=== PATIENT | male | born 1990 | race Caucasian/White ===

== ENCOUNTER 2023-07-29 13:53 | Emergency (ER) | payer OTHER, SELFPAY ==
[2023-07-29 13:54] VITALS: BP 134/88; PULSE 71; RESP 16; TEMP 36.2; O2SAT 97; BMI 25.8
--- NOTE | 2023-07-29 14:13 | CT_ITS ---
HISTORY: neck injury. TECHNIQUE: Helically acquired images were obtained of the cervical spine without contrast. 2D reformatted images were reviewed. A radiation dose optimization technique was used for this scan. 454 images. COMPARISON: None. FINDINGS: VERTEBRAE: Vertebral body heights maintained. Posterior elements intact. ALIGNMENT: No significant anterior or posterior subluxation. Straightening of the cervical lordosis. INTERVERTEBRAL DISCS: Mild posterior disc bulge osteophyte complexes of C5-6 and C6-7. SOFT TISSUES: No prevertebral soft tissue swelling. CT/Spine Cervical without Contras IMPRESSION: No evidence for acute fracture or dislocation in the cervical spine. Mild degenerative disc disease. Electronically Signed: Julieth Arndt MD at 15:04 EST ,
--- NOTE | 2023-07-29 14:13 | CT_ITS ---
HISTORY: head trauma. TECHNIQUE: Multiple axial images were obtained of the head without intravenous contrast. A radiation dose optimization technique was used for this scan. 262 images. COMPARISON: None. FINDINGS: BRAIN PARENCHYMA: 1.2 x 2.4 x 1.2 cm acute hemorrhage in the left frontal lobe with mild surrounding edema. Possible trace overlying subarachnoid hemorrhage. CSF SPACES: Cerebral ventricles, cortical sulci, and other extra-axial CSF spaces within normal limits in size for age. No midline shift or other significant mass effect. OTHER: Intact calvarium. Fluid and mucosal thickening in the paranasal sinuses. Unremarkable orbits. CT/Brain/Head without Contrast IMPRESSION: 2.4 cm acute hemorrhage in the left frontal lobe. No midline shift. Electronically Signed: Julieth Arndt MD at 14:42 EST ,
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
[2023-07-29] MEDS: Ondansetron 8 MG Tablet PO (14:17)
[2023-07-29] MEDS: Morphine 4 MG/ML Syringe IV (14:47)
[2023-07-29 14:55] LABS: Hematocrit 43.4 % (40-54); Hemoglobin 14.2 g/dL (13.0-16.5); Mean Corp Hgb Conc 32.7 g/dL (32-36); Mean Corpuscular Hgb 27.8 pg (27.0-32.0); Mean Corpuscular Volume 85.1 fL (80-94); Mean Platelet Vol. 9.5 fl (6.2-12.0); Platelet Count 171 K/mm3 (150-450); RBC Distribution Width CV 13.5 % (11.6-14.6); RBC Distribution Width SD 42.3 fl (35.1-43.9); White Blood Count 6.6 K/mm3 (4.4-11.0)
--- OUTSIDE RECORDS SUMMARY | 2023-07-29 14:56 | XMS RPT_ITS | CCD ---
Author Name Unknown Address [address] [place] [address] Organization [facility] Care Team Providers Care [employer] Worker Name Role Phone Darcy Qureshi Unavailable Darcy Qureshi Primary Care Provider Darcy Qureshi Unavailable Balwinder Espino Primary Care Provider Balwinder Espino Unavailable [phone] Balwinder Espino MD Unavailable Stef Ricci DO Primary Care Provider Stef Ricci DO Primary Care Provider [phone] Physician, No Pcp Primary Care Provider Unavaila arnie PHYSICIAN, NO PCP Primary Care Unavailable ANITA MUÑIZ Attending Unavailable Stef Ricci DO Primary Care Provider [phone] Stef Ricci DO Primary Care Provider STEF RICCI Primary Care Unavailable AMBER THEODORE Attending Unavaila ble SHANNON GABRIEL Attending STEF Rosenthal Primary Care Unavailable SHANNON GABRIEL Attending STEF Rosenthal Primary Care Unavailable SHANNON GABRIEL Attending STEF Rosenthal Primary Care Unavailable SHANNON GABRIEL Referring STEF Rosenthal Primary Care Unavailable AARON SAWYER Attending Unavailable STEF RICCI Primary Care Unavailable RICARDO BEY Attending Natali kerryble STEF RICCI Primary Care Unavailable NANY TRIMBLE Attending UnavailSTEF Cardenas Primary Care Unavailable EDGARDO NDIAYE Attending Unavailable NANY TRIMBLE Attending UnavailSTEF Cardenas Primary Care Unavailable STEF RICCI Attending Unavailable STEF RICCI Primary Care Unavailable STEF RICCI Attending Unavailable STEF RICCI Primary Care Unavailable STEF RICCI Attending Unavailable STEF RICCI Referring Unavailable STEF RICCI Primary Care Unavailable STEF RICCI Referring Unavailable STEF RICCI Admitting Unavailable STEF RICCI Primary Care Unavailable STEF RICCI Primary Care Unavailable STEF RICCI Primary Care Unavailable STEF RICCI Referring Unavailable STEF RICCI Primary Care Unavailable STEF RICCI Attending Unavailable Medications Current Medications Medication Drug Class(es) Dates Sig (Normalized) Sig (Original) [id number] 200 actuat albuterol 0.09 mg/actuat metered dose inhaler (19 sources) beta2-Adrenergic Agonist Start: 05-19-2023 End: 05-19-2024 take 2 puff(s) by inhalation every four to six hours as needed for cough albuterol 90 mcg/actuation inhaler Indications: Wheezing Inhale 2 (two) puffs every 4 to 6 hours as needed for wheezing, shortness of breath or cough . 18 g 0 05/20/2023 05/19/2024 Active Completed/Discontinued Medications Medication Drug Class(es) Dates Sig (Normalized) Sig (Original) benzonatate 200 mg oral capsule (6 sources) Non-narcotic Antitussive Start: 04-18-2023 End: 05-19-2023 take 1 capsule by mouth three times daily as needed for cough benzonatate (TESSALON) 200 MG capsule Indications: Pansinusitis, unspecified chronicity Take 1 (one) capsule (200 mg total) by mouth 3 (three) times a day as needed for cough . 90 capsule 0 04/18/2023 05/19/2023 Discontinued Problems Active Problems Problem Classification Problem Date Documented Date Episodic/Chronic Cardiac dysrhythmias (2 sources) Tachycardia; Translations: [Tachycardia, unspecified] Episodic Chronic obstructive pulmonary disease and bronchiectasis (3 sources) Bronchitis; Translations: [Bronchitis, not specified as acute or chronic] Onset: 06-03-2023 06-02-2023 Episodic Immunizations and screening for infectious disease (7 sources) Exposure to sexually transmissible disorder; Translations: [Contact with and (suspected) exposure to infections with a predominantly sexual mode of transmission] Onset: 02-25-2022 Episodic Malaise and fatigue (2 sources) Fatigue; Translations: [Other fatigue] Onset: 02-25-2022 Episodic Other and unspecified benign neoplasm (2 sources) Multiple atypical melanocytic nevi; Translations: [Melanocytic nevi, unspecified] 08-29-2022 Episodic Other injuries and conditions due to external causes (2 sources) Injury of finger; Translations: [Unspecified injury of left wrist, hand and finger(s), initial encounter] Episodic Other lower respiratory disease (3 sources) Cough; Translations: [Acute cough] 01-22-2023 Episodic Other lower respiratory disease (1 source) Dyspnea; Translations: [Shortness of breath] Episodic Other lower respiratory disease (1 source) H/O: pneumonia; Translations: [History of recent pneumonia] Episodic Other lower respiratory disease (2 sources) Lower respiratory tract infection; Translations: [Unspecified acute lower respiratory infection] 05-19-2023 Episodic Other lower respiratory disease (2 sources) Unspecified acute lower respiratory infection; Translations: [Unspecified acute lower respiratory infection] Onset: 05-19-2023 Episodic Other lower respiratory disease (2 sources) Dyspnea on exertion; Translations: [Other forms of dyspnea] Onset: 06-29-2023 06-29-2023 Episodic Other lower respiratory disease (4 sources) Other forms of dyspnea; Translations: [Other forms of dyspnea] Onset: 06-29-2023 Episodic Other male genital disorders (1 source) Impotence of organic origin; Translations: [Erectile dysfunction, unspecified erectile dysfunction type] Chronic Other male genital disorders (1 source) Impotence; Translations: [Erectile dysfunction, unspecified erectile dysfunction type] Chronic Other skin disorders (1 source) Inflammatory dermatosis; Translations: [Dermatitis] Episodic Other upper respiratory infections (4 sources) Pansinusitis; Translations: [Chronic pansinusitis] Onset: 04-18-2023 04-18-2023 Chronic Otitis media and related conditions (2 sources) Otitis media; Translations: [Otitis media, unspecified, unspecified ear] Onset: 06-29-2023 06-29-2023 Episodic Pneumonia (except that caused by tuberculosis or sexually transmitted disease) (3 sources) Infective pneumonia; Translations: [Pneumonia of right upper lobe due to infectious organism (HCC)] Episodic Residual codes; unclassified (1 source) Sleep disorder; Translations: [Sleep disorder] Episodic Residual codes; unclassified (1 source) Requires diphtheria, tetanus and pertussis vaccination; Translations: [Need for Tdap vaccination] Episodic Skin and subcutaneous tissue infections (6 sources) Impetigo; Translations: [Paronychia of finger of right hand] Onset: 03-30-2023 03-30-2023 Episodic Spondylosis; intervertebral disc disorders; other back problems (2 sources) Acute low back pain; Translations: [Acute right-sided low back pain without sciatica] Episodic Superficial injury; contusion (3 sources) Abrasion and/or friction burn of nose with infection; Translations: [Abrasion of nose, initial encounter] Onset: 03-30-2023 03-30-2023 Episodic Unclassified (2 sources) Patient encounter status; Translations: [Routine general medical examination at a health care facility] Unclassified (1 source) Acute cough; Translations: [Acute cough] Onset: 01-22-2023 Unclassified (1 source) Contact with and (suspected) exposure to covid-19; Translations: [Contact with and (suspected) exposure to covid-19] Onset: 10-03-2022 Unclassified (1 source) Low back pain, unspecified; Translations: [Low back pain, unspecified] Onset: 06-02-2022 Past or Other Problems Problem Classification Problem Date Documented Da te Episodic/Chronic Contraceptive and procreative management (4 sources) Patient encounter status; Translations: [Encounter for other general counseling and advice on contraception] Onset: 08-29-2022 08-29-2022 Episodic Genitourinary symptoms and ill-defined conditions (2 sources) Frequency of micturition; Translations: [Frequency of micturition] Onset: 10-28-2022 Episodic Other and unspecified benign neoplasm (2 sources) Melanocytic nevi, unspecified; Translations: [Melanocytic nevi, unspecified] Onset: 08-29-2022 Episodic Other connective tissue disease (20 sources) Pain in left foot; Translations: [Pain in left foot] Onset: 01-08-2021 Episodic Other injuries and conditions due to external causes (2 sources) Unspecified injury of left wrist, hand and finger(s), initial encounter; Translations: [Unspecified injury of left wrist, hand and finger(s), initial encounter] Onset: 06-02-2022 Episodic Other lower respiratory disease (4 sources) Wheezing; Translations: [Wheezing] Onset: 01-22-2023 01-22-2023 Episodic Other lower respiratory disease (1 source) Wheezing; Translations: [Wheezing] Onset: 01-22-2023 Episodic Other upper respiratory disease (20 sources) Deviated nasal septum; Translations: [Deviated nasal septum] Onset: 01-31-2013 09-19-2014 Episodic Other upper respiratory infections (20 sources) Sore throat symptom; Translations: [Acute pharyngitis, unspecified] Onset: 08-24-2021 Episodic Residual codes; unclassified (1 source) High risk heterosexual behavior; Translations: [High risk sexual behavior, unspecified type] Episodic Residual codes; unclassified (6 sources) Contact with and (suspected) exposure to lead; Translations: [Personal history of contact with and (suspected) exposure to lead] Onset: 08-29-2022 08-29-2022 Episodic Unclassified (1 source) Acute cough; Translations: [Acute cough] Onset: 01-22-2023 Unclassified (1 source) Contact with and (suspected) exposure to covid-19; Translations: [Contact with and (suspected) exposure to covid-19] Onset: 10-03-2022 Unclassified (1 source) Low back pain, unspecified; Translations: [Low back pain, unspecified] Onset: 06-02-2022 Viral infection (6 sources) Viral disease; Translations: [Viral infection, unspecified] Onset: 10-03-2022 10-03-2022 Episodic Results Test Name Value Interpretation Reference Range Facil ity Vital Signs Date Time Vital Sign Value Performing Clinician Maryann colindres 06-29-2023 14:11-0500 Body mass index (BMI) [Ratio] 26.14 kg/m2 Stef Ricci DO Work Phone: [facility] 06-29-2023 14:11-0500 Body weight 80.29 kg Stef Ricci DO Work Phone: [facility] 06-29-2023 14:11-0500 Diastolic blood pressure 82 mm[Hg] Stef Ricci DO Work Phone: [facility] 06-29-2023 14:11-0500 Heart rate 65 /min Stef Ricci DO Work Phone: [facility] 06-29-2023 14:11-0500 SaO2% (BldA) [Mass fraction] 98 % Stef Ricci DO Work Phone: [facility] 06-29-2023 14:11-0500 Systolic blood pressure 118 mm[Hg] Stef Ricci DO Work Phone: [facility] 05-19-2023 17:59-0500 Body height 175.3 cm Aaron Noth PA-C Work Phone: [facility] 05-19-2023 17:59-0500 Body mass index (BMI) [Ratio] 25.15 kg/m2 Aaron Noth PA-C Work Phone: [facility] 05-19-2023 17:59-0500 Body temperature 97.11 [degF] Aaron Noth PA-C Work Phone: [facility] 05-19-2023 17:59-0500 Body weight 77.25 kg Aaron Noth PA-C Work Phone: [facility] 05-19-2023 17:59-0500 Diastolic blood pressure 75 mm[Hg] Aaron Noth PA-C Work Phone: [facility] 05-19-2023 17:59-0500 Heart rate 63 /min Aaron Noth PA-C Work Phone: [facility] 05-19-2023 17:59-0500 Respiratory rate 16 /min Aaron Noth PA-C Work Phone: [facility] 05-19-2023 17:59-0500 SaO2% (BldA) [Mass fraction] 96 % Aaron Noth PA-C Work Phone: [facility] 05-19-2023 17:59-0500 Systolic blood pressure 117 mm[Hg] Aaron Noth PA-C Work Phone: [facility] 04-18-2023 16:40-0500 Body height 172.7 cm Ricardo Zhu ADMIN PROG COORD Work Phone: [facility] 04-18-2023 16:40-0500 Body mass index (BMI) [Ratio] 25.85 kg/m2 Ricardo Zhu ADMIN PROG COORD Work Phone: [facility] 04-18-2023 16:40-0500 Body temperature 98.8 [degF] Ricardo Zhu ADMIN PROG COORD Work Phone: [facility] 04-18-2023 16:40-0500 Body weight 77.11 kg Ricardo Zhu ADMIN PROG COORD Work Phone: [facility] 04-18-2023 16:40-0500 Diastolic blood pressure 79 mm[Hg] Ricardo Zhu ADMIN PROG COORD Work Phone: [facility] 04-18-2023 16:40-0500 Heart rate 82 /min Ricardo Zhu ADMIN PROG COORD Work Phone: [facility] 04-18-2023 16:40-0500 Respiratory rate 16 /min Ricardo Zhu ADMIN PROG COORD Work Phone: [facility] 04-18-2023 16:40-0500 SaO2% (BldA) [Mass fraction] 97 % Ricardo Zhu ADMIN PROG COORD Work Phone: [facility] 04-18-2023 16:40-0500 Systolic blood pressure 117 mm[Hg] Ricardo Zhu ADMIN PROG COORD Work Phone: [facility] 03-30-2023 09:27-0400 Body height 175.3 cm Nany Trimble PA- C Work Phone: [facility] 03-30-2023 09:27-0400 Body mass index (BMI) [Ratio] 24.22 kg/m2 Nany Beddow PA-C Work Phone: [facility] 03-30-2023 09:27-0400 Body temperature 97.81 [degF] Nany Beddow PA- C Work Phone: [facility] 03-30-2023 09:27-0400 Body weight 74.39 kg Nany Beddow PA- C Work Phone: [facility] 03-30-2023 09:27-0400 Diastolic blood pressure 81 mm[Hg] Nany Beddow PA-C Work Phone: [facility] 03-30-2023 09:27-0400 Heart rate 97 /min Nany Beddow PA- C Work Phone: [facility] 03-30-2023 09:27-0400 Respiratory rate 16 /min Nany Beddow PA- C Work Phone: [facility] 03-30-2023 09:27-0400 SaO2% (BldA) [Mass fraction] 95 % Nany Beddow PA-C Work Phone: [facility] 03-30-2023 09:27-0400 Systolic blood pressure 125 mm[Hg] Nany Beddow PA-C Work Phone: [facility] 01-22-2023 09:45-0400 Body height 172.7 cm Shannon Gabriel PA-C Work Phone: [facility] 01-22-2023 09:45-0400 Body mass index (BMI) [Ratio] 25.24 kg/m2 Shannon Gabriel PA-C Work Phone: [facility] 01-22-2023 09:45-0400 Body temperature 98.01 [degF] Shannon Gabriel PA-C Work Phone: [facility] 01-22-2023 09:45-0400 Body weight 75.3 kg Shannon Gabriel PA-C Work Phone: [facility] 01-22-2023 09:45-0400 Diastolic blood pressure 78 mm[Hg] Shannon Gabriel PA-C Work Phone: [facility] 01-22-2023 09:45-0400 Heart rate 81 /min Shannon Gabriel PA-C Work Phone: [facility] 01-22-2023 09:45-0400 Respiratory rate 16 /min Shannon Gabriel PA-C Work Phone: [facility] 01-22-2023 09:45-0400 SaO2% (BldA) [Mass fraction] 96 % Shannon Gabriel PA-C Work Phone: [facility] 01-22-2023 09:45-0400 Systolic blood pressure 116 mm[Hg] Shannon Gabriel PA-C Work Phone: [facility] 01-13-2023 17:17-0400 Body height 175.3 cm Edgardo Ndiaye MD Work Phone: [facility] 01-13-2023 17:17-0400 Body mass index (BMI) [Ratio] 24.81 kg/m2 Edgardo Ndiaye MD Work Phone: [facility] 01-13-2023 17:17-0400 Body temperature 97.39 [degF] Edgardo Ndiaye MD Work Phone: [facility] 01-13-2023 17:17-0400 Body weight 76.2 kg Edgardo Ndiaye MD Work Phone: [facility] 01-13-2023 17:17-0400 Diastolic blood pressure 71 mm[Hg] Edgardo Ndiaye MD Work Phone: [facility] 01-13-2023 17:17-0400 Heart rate 71 /min Edgardo Ndiaye MD Work Phone: [facility] 01-13-2023 17:17-0400 Respiratory rate 16 /min Edgardo Ndiaye MD Work Phone: [facility] 01-13-2023 17:17-0400 SaO2% (BldA) [Mass fraction] 96 % Edgardo Ndiaye MD Work Phone: [facility] 01-13-2023 17:17-0400 Systolic blood pressure 112 mm[Hg] Edgardo Ndiaye MD Work Phone: [facility] 10-03-2022 19:00-0400 Body mass index (BMI) [Ratio] 24.37 kg/m2 Amber Theodore MD Work Phone: [facility] 10-03-2022 19:00-0400 Body temperature 98.29 [degF] Amber Theodore MD Work Phone: [facility] 10-03-2022 19:00-0400 Body weight 74.84 kg Amber Theodore MD Work Phone: [facility] 10-03-2022 19:00-0400 Diastolic blood pressure 92 mm[Hg] Amber Theodore MD Work Phone: [facility] 10-03-2022 19:00-0400 Respiratory rate 16 /min Amber Theodore MD Work Phone: [facility] 10-03-2022 19:00-0400 SaO2% (BldA) [Mass fraction] 98 % Amber Theodore MD Work Phone: [facility] 10-03-2022 19:00-0400 Systolic blood pressure 137 mm[Hg] Amber Theodore MD Work Phone: [facility] 08-29-2022 15:53-0400 Body height 175.3 cm Stef Ricci DO Work Phone: [facility] 08-29-2022 15:53-0400 Body mass index (BMI) [Ratio] 24.81 kg/m2 Stef Ricci DO Work Phone: [facility] 08-29-2022 15:53-0400 Body weight 76.2 kg Stef Ricci DO Work Phone: [facility] 06-02-2022 10:14-0500 Body height 175.3 cm Theodoresourav Tam PA-C Work Phone: [facility] 06-02-2022 10:14-0500 Body mass index (BMI) [Ratio] 25.1 kg/m2 Shannon Gabriel PA-C Work Phone: [facility] 06-02-2022 10:14-0500 Body temperature 98.6 [degF] Theodoresourav Tam PA-C Work Phone: [facility] 06-02-2022 10:14-0500 Body weight 77.11 kg Theodoresourav Tam PA-C Work Phone: [facility] 06-02-2022 10:14-0500 Diastolic blood pressure 75 mm[Hg] Shannon Gabriel PA-C Work Phone: [facility] 06-02-2022 10:14-0500 Heart rate 89 /min Theodoresourav Gabriel PA-C Work Phone: [facility] 06-02-2022 10:14-0500 Respiratory rate 16 /min Theodoresourav Tam PA-C Work Phone: [facility] 06-02-2022 10:14-0500 SaO2% (BldA) [Mass fraction] 95 % Theodoresourav Tam PA-C Work Phone: [facility] 06-02-2022 10:14-0500 Systolic blood pressure 121 mm[Hg] Shannon Tam PA-C Work Phone: [facility] 02-25-2022 14:59-0400 Body height 175.3 cm Anita Muñiz NP Work Phone: [facility] 02-25-2022 14:59-0400 Body mass index (BMI) [Ratio] 25.1 kg/m2 Anita Muñiz NP Work Phone: [facility] 02-25-2022 14:59-0400 Body temperature 99.19 [degF] Anita Muñiz NP Work Phone: [facility] 02-25-2022 14:59-0400 Body weight 77.11 kg Anita Muñiz SCAFFOLD SETTER Work Phone: [facility] 02-25-2022 14:59-0400 Diastolic blood pressure 86 mm[Hg] Anita Muñiz SCAFFOLD SETTER Work Phone: [facility] 02-25-2022 14:59-0400 Heart rate 70 /min Anita Angelo [employer]CAFFOLD SETTER Work Phone: [facility] 02-25-2022 14:59-0400 Respiratory rate 16 /min Anita Schwartzll [employer]CAFFOLD SETTER Work Phone: [facility] 02-25-2022 14:59-0400 SaO2% (BldA) [Mass fraction] 98 % Anita Schwartzll SCAFFOLD SETTER Work Phone: [facility] 02-25-2022 14:59-0400 Systolic blood pressure 132 mm[Hg] Anita Angelo SCAFFOLD SETTER Work Phone: [facility] 08-24-2021 08:35-0400 Body height 175.3 cm Stef Ricci DO Work Phone: [facility] 08-24-2021 08:35-0400 Body mass index (BMI) [Ratio] 26.58 kg/m2 Stef Ricci DO Work Phone: [facility] 08-24-2021 08:35-0400 Body weight 81.65 kg Stef Ricci DO Work Phone: [facility] 08-24-2021 08:35-0400 Diastolic blood pressure 72 mm[Hg] Stef Ricci DO Work Phone: [facility] 08-24-2021 08:35-0400 Heart rate 63 /min Stef Ricci DO Work Phone: [facility] 08-24-2021 08:35-0400 SaO2% (BldA) [Mass fraction] 99 % Stefmoose Ricci DO Work Phone: [facility] 08-24-2021 08:35-0400 Systolic blood pressure 123 mm[Hg] Stef Ricci DO Work Phone: [facility] 01-08-2021 08:35-0400 Body height 175.3 cm Stef Ricci DO Work Phone: [facility] 01-08-2021 08:35-0400 Body mass index (BMI) [Ratio] 25.4 kg/m2 Stef Ricci DO Work Phone: [facility] 01-08-2021 08:35-0400 Body weight 78.02 kg Stef Ricci DO Work Phone: [facility] 01-08-2021 08:35-0400 Diastolic blood pressure 75 mm[Hg] Stef Ricci DO Work Phone: [facility] 01-08-2021 08:35-0400 Heart rate 70 /min Stef Ricci DO Work Phone: [facility] 01-08-2021 08:35-0400 SaO2% (BldA) [Mass fraction] 98 % Stef Ricci DO Work Phone: [facility] 01-08-2021 08:35-0400 Systolic blood pressure 123 mm[Hg] Stef Ricci DO Work Phone: [facility] 01-25-2020 14:29-0400 BMI (Body Mass Index) 24.51 kg/m2 [facility] 01-25-2020 14:29-0400 Body Temperature 97.81 [degF] [facility] 01-25-2020 14:29-0400 Body weight 75.3 kg [facility] 01-25-2020 14:29-0400 BP Diastolic 68 mm[Hg] [facility] 01-25-2020 14:29-0400 BP Systolic 113 mm[Hg] [facility] 01-25-2020 14:29-0400 Height 175.3 cm [facility] 01-25-2020 14:29-0400 Pulse (Heart Rate) 80 /min [facility] 01-25-2020 14:29-0400 Pulse [facility] 96 % [facility] 14:29-0400 Respiratory Rate 16 /min [facility] 12-27-2019 14:07-0400 BMI (Body Mass Index) 24.51 kg/m2 [facility] 12-27-2019 14:07-0400 Body Temperature 98.01 [degF] [facility] 12-27-2019 14:07-0400 Body weight 75.3 kg [facility] 12-27-2019 14:07-0400 BP Diastolic 74 mm[Hg] [facility] 12-27-2019 14:07-0400 BP Systolic 120 mm[Hg] [facility] 12-27-2019 14:07-0400 Height 175.3 cm [facility] 12-27-2019 14:07-0400 Pulse (Heart Rate) 52 /min [facility] 12-27-2019 14:07-0400 Pulse Oximetry 96 % [facility] 07-19-2019 08:13-0500 BMI (Body Mass Index) 24.69 kg/m2 [facility] 07-19-2019 08:13-0500 Body Temperature 98.2 [degF] [facility] 07-19-2019 08:13-0500 Body weight 75.84 kg [facility] 07-19-2019 08:13-0500 BP Diastolic 78 mm[Hg] [facility] 07-19-2019 08:13-0500 BP Systolic 117 mm[Hg] [facility] 07-19-2019 08:13-0500 Height 175.3 cm [facility] 07-19-2019 08:13-0500 Pulse (Heart Rate) 75 /min [facility] 07-19-2019 08:13-0500 Pulse Oximetry 98 % [facility] 07-19-2019 08:13-0500 Respiratory Rate 14 /min [facility] 06-07-2019 14:49-0500 BMI (Body Mass Index) 24.37 kg/m2 [facility] 06-07-2019 14:49-0500 Body Temperature 98.4 [degF] [facility] 06-07-2019 14:49-0500 Body weight 74.84 kg [facility] 06-07-2019 14:49-0500 BP Diastolic 66 mm[Hg] [facility] 06-07-2019 14:49-0500 BP Systolic 121 mm[Hg] [facility] 06-07-2019 14:49-0500 Height 175.3 cm [facility] 06-07-2019 14:49-0500 Pulse (Heart Rate) 65 /min [facility] 06-07-2019 14:49-0500 Pulse Oximetry 96 % [facility] 06-07-2019 14:49-0500 Respiratory Rate 14 /min [facility] 06-04-2019 11:55-0500 BMI (Body Mass Index) 23.92 kg/m2 [facility] 06-04-2019 11:55-0500 Body Temperature 98.6 [degF] [facility] 06-04-2019 11:55-0500 Body weight 73.48 kg [facility] 06-04-2019 11:55-0500 BP Diastolic 64 mm[Hg] [facility] 06-04-2019 11:55-0500 BP Systolic 104 mm[Hg] [facility] 06-04-2019 11:55-0500 Height 175.3 cm [facility] 06-04-2019 11:55-0500 Pulse (Heart Rate) 91 /min [facility] 06-04-2019 11:55-0500 Pulse Oximetry 97 % [facility] 06-04-2019 11:55-0500 Respiratory Rate 16 /min [facility] 11-13-2018 07:31-0400 BMI (Body Mass Index) 24.9 kg/m2 [facility] 11-13-2018 07:31-0400 Body Temperature 97.59 [degF] [facility] 11-13-2018 07:31-0400 BP Diastolic 78 mm[Hg] [facility] 11-13-2018 07:31-0400 BP Systolic 121 mm[Hg] [facility] 11-13-2018 07:31-0400 Pulse (Heart Rate) 56 /min [facility] 11-13-2018 07:31-0400 Pulse Oximetry 98 % [facility] 11-13-2018 07:31-0400 Respiratory Rate 16 /min [facility] 11-13-2018 07:31-0400 Weight 75.39 kg [facility] 10-05-2017 08:09-0400 BMI (Body Mass Index) 23.97 kg/m2 [facility] 10-05-2017 08:09-0400 Body Temperature 98.01 [degF] [facility] 10-05-2017 08:09-0400 BP Diastolic 79 mm[Hg] [facility] [facility] 08:09-0400 BP Systolic 129 mm[Hg] [facility] 10-05-2017 08:09-0400 Height 174 cm [facility] 10-05-2017 08:09-0400 Pulse (Heart Rate) 86 /min [facility] 10-05-2017 08:09-0400 Pulse Oximetry 98 % [facility] 10-05-2017 08:09-0400 Respiratory Rate 18 /min [facility] 10-05-2017 08:09-0400 Weight 72.58 kg [facility] Encounters Encounter Date Encounter Type Care Provider Facility Start: 07-06-2023 End: 07-07-2023 ambulatory [facility] Start: 06-29-2023 End: 07-03-2023 ambulatory [facility] Start: 06-29-2023 End: 06-29-2023 ambulatory [facility] Amb[facility] Start: 06-29-2023 End: 06-29-2023 Office outpatient visit 40 minutes Stef Ricci DO Work Phone: [facility] Procedures Date Procedure Procedure Detail Performing Clinician Start: 06-29-2023 Ecg routine ecg w/le ast 12 lds w/i&r Stef Ricci DO Work Phone: Start: 03-30-2023 Sars-cov-2 detection by dna/rna Nanydouglas MOISE-C Work Phone: Start: 03-30-2023 End: 03-30-2023 Infectious agent dna/rna influenza 1st 2 types Nany Gladys MOISE-C Work Phone: Start: 01-13-2023 Iadna streptococcus group a amplified probe tq Edgardo Ndiaye MD Work Phone: Start: 10-03-2022 End: 10-03-2022 Infectious agent dna/rna influenza 1st 2 types Amber Theodore MD Work Phone: Start: 10-03-2022 Sars-cov-2 detection by dna/rna Amber Theodore MD Work Phone: Start: 08-29-2022 Adult depression scr eening assessment Stef Ricci DO Work Phone: Start: 06-02-2022 Radex fingr minimum 2 views Shannon Gabriel PA-C Work Phone: Start: 02-25-2022 Sars-cov-2 detection by dna/rna Brown MOISE Work Phone: Start: 08-24-2021 Adult depression scr eening assessment Stef Ricci DO Work Phone: Start: 01-08-2021 Adult depression scr eening assessment Stef Ricci DO Work Phone: Start: 06-04-2019 Standard chest X-ray Am nan Rosen Work Phone: Start: 11-13-2018 Urnls dip stick/tabl et rgnt auto w/o microscopy Darcy Qureshi Work Phone: Start: 11-13-2018 Adult depression scr eening assessment Darcy Qureshi Plan of Treatment Date Care Activity Detail Author Start: 07-19-2029 Tetanus vaccination [facility] Start: 08-31-2023 End: 08-31-2023 Patient encounter procedure [facility] Start: 08-30-2023 Depression screening using PHQ-9 (Patient Health Questionnaire 9) score Depression Screening (PHQ-2/9) [facility] Start: 08-30-2023 History and physical examination, annual for health maintenance Wellness Visit [facility] Start: 02-03-2023 COVID-19 Vaccine () COVID-19 Vaccine () [facility] Start: 02-03-2023 Influenza vaccination [facility] Start: 10-20-2022 End: 10-20-2022 Patient encounter procedure 10/20/2022 7:30 AM EDT Office Visit [facility] Physician [facility] [address] [facility] [address] [place] [address] Isaiah Layton MD [address] [facility] [address] [place] [address] [facility] Start: 08-24-2022 Depression screening using PHQ-9 (Patient Health Questionnaire 9) score Depression Screening (PHQ-2/9) [facility] Start: 08-24-2022 History and physical examination, annual for health maintenance Wellness Visit [facility] Start: 02-25-2022 Adolescent depression screening assessment Depression Screening [facility] Start: 02-25-2022 Hepatitis C screening Hepatitis C Screening [facility] Start: 02-25-2022 HIV screening HIV Screening [facility] Start: 02-25-2022 Social Influencers of Health Screening Social Influencers of Health Screening [facility] Start: 02-03-2022 Influenza vaccination [facility] Start: 01-08-2022 History and physical examination, annual for health maintenance Wellness Visit [facility] Start: 07-28-2021 COVID-19 Vaccine (4 - Booster for Moderna series) COVID-19 Vaccine (4 - Booster for Moderna series) [facility] Start: 07-28-2021 COVID-19 Vaccine (4 - Moderna series) COVID-19 Vaccine (4 - Moderna series) [facility] Start: 02-03-2021 Influenza vaccination Sequential Influenza Vaccine (#1) [facility] Start: 07-19-2020 History and physical examination, annual for health maintenance Wellness Visit [facility] Start: 02-04-2020 Influenza vaccination given Sequential Influenza Vaccine (#1) [facility] Start: 12-03-2019 Influenza vaccination given SEQUENTIAL INFLUENZA VACCINE (#1) [facility] Immunizations Immunization Date Immunization Notes Care Provider Doreen cabello 07-19-2019 diphtheria, tetanus toxoids and acellular pertussis vaccine, unspecified formulation Balwinder Espino [facility] 07-19-2019 tetanus toxoid, redu la diphtheria toxoid, and acellular pertussis vaccine, adsorbed [facility] Payers Date Payer Category Payer Private Health Insurance [employer] [id number] 2021-Present [id number] 2021 Private Health Insurance [id number] 2021 Unknown [id number] 2018 Unknown KANG AN/PREF/HMO/PPO [id number] 2018-Present [id number] 2018 Unknown KANG AN/PREF/HMO/PPO [id number] 2018-Present [id number] 1988 Unknown [id number] [id number] .1143 1988 Unknown [id number] 2.16.840.1.332337.3.579.2 .903 1988 Unknown [id number] 2.16.840.1.809197.3.579.2 .903 1988 Unknown [id number] 2.16.840.1.531842.3.579.2 .903 1988 Unknown [id number] 2.16.840.1.721200.3.579.2 .903 1988 Unknown [id number] 2.16.840.1.301471.3.579.2 .903 1988 Unknown [id number] 2.16.840.1.307911.3.579.2 .90 1988 Unknown [id number] 2.16.840.1.496192.3.579.2 .90 1988 Unknown [id number] 2.16.840.1.022645.3.579.2 .1988 Unknown [id number] 2.16.840.1.643144.3.579.2 .1988 Unknown [id number] 2.16840.1.980286.3.579.2 .1988 Unknown [id number] 2.16.840.1.541110.3.579.2 .903 1988 Unknown [id number] 2.16.840.1.134168.3.579.2 .900 1988 Unknown [id number] 2.16840.1.102568.3.579.2 .900 1988 Unknown [id number] 2.16840.1.266964.3.579.2 .900 1988 Unknown [id number] [id number] .900 1988 Unknown [id number] .900 Social History Date Type Detail Facility Start: 10-05-2017 End: 10-03-2022 Tobacco smoking status NMIS Former smoker [facility] Start: 1990 End: 1990 Sex Assigned At Not on file [facility] Start: 06-04-2019 End: 10-03-2022 Alcohol intake Current drinker of alcohol (finding) [facility] Start: 07-19-2019 End: 08-24-2021 History SDOH Alcohol Frequency 3 [facility] Start: 01-25-2020 End: 02-25-2022 Tobacco use and exposure Never used [facility] Start: 01-25-2020 End: 06-29-2023 Alcohol intake Ex-drinker (finding) [facility] Start: 01-25-2020 History SDOH Alcohol Std Drinks 99 [facility] Start: 08-14-2021 End: 10-03-2022 Exposure to SARS-CoV-2 (event) Not sure [facility] Start: 01-08-2021 End: 08-24-2021 History SDOH Social Connections Membership 1 [facility] Start: 01-08-2021 History SDOH Social Connections Meetings 2 [facility] Start: 08-24-2021 End: 10-03-2022 Tobacco use and exposure Former smokeless tobacco user [facility] Start: 08-24-2021 History SDOH Alcohol Comment about one drink per month [facility] Start: 08-24-2021 End: 10-03-2022 Tobacco Comment using nicotine gum daily about 5 pieces [facility] History of tobacco use [facility] Start: 02-25-2022 Tobacco smoking status NHIS [facility] sm [facility] Start: 02-25-2022 Alcohol intake Lifetime non-d shorty (finding) [facility] Start: 05-23-2022 End: 06-02-2022 Exposure to SARS-CoV-2 (event) Unable to assess [facility] Start: 08-24-2021 End: 08-29-2022 History of Social function [facility] Start: 08-24-2021 End: 08-29-2022 Social connection and isolation panel [facility] Frequency of Communi cation with Friends and Family Not on file [facility] Do you belong to any clubs or organizations such as yazdanism groups, unions, fraternal or athletic groups, or school groups? Yes [facility] How often to you hav e a drink containing alcohol? 2-4 times a month [facility] (I/We) worried wheth er (my/our) food would run out before (I/we) got money to buy more. Never true [facility] Start: 11-06-2018 Gender identity Identifies as male gender (finding) [facility] Start: 08-12-2021 Sexual orientation Heterosexual (sylvain rossi) [facility] Clinical Notes 01-08-2021 to 06-29-2023 Assessment & Plan Note - Stef Ricci DO - 06/29/2023 5:23 PM ESTAssessment & Plan Note - Stef Ricci DO - 06/29/2023 5:23 PM ESTPatient InstructionsPatient Instructions Note Date & Type Note Facility 06-29-2023 Evaluation + Plan note Associ ated Problem(s): Otitis media Bilat TM injection. Zithromax 500 mg daily #4 [facility] 06-29-2023 Miscellaneous Notes Associate d Problem(s): Otitis media Bilat TM injection. Zithromax 500 mg daily #4 Associated Problem(s): FRANKEL (dyspnea on exertion) ECG had sinus jose @ 55 bpm. Otherwise WNL Had traveled to [facility] prior to these sx. CXR and CTA documented in this encounter [facility] 06-29-2023 Evaluation + Plan note Associ ated Problem(s): FRANKEL (dyspnea on exertion) ECG had sinus jose @ 55 bpm. Otherwise WNL Had traveled to [facility] prior to these sx. CXR and CTA [facility] 06-29-2023 History of Presen t illness Narrative Fabricio An is a 33 y.o. male born on 1990 who presents with Chief Complaint Patient presents with Cough Cough and SOB x 2 months. Has been to UC twice, has taken 3 antibiotics and prednisone. Pt states prednisone helped some, but still SOB. Persistent cough for 2 months. Gets FRANKEL. Had been running a half marathon, now FRANKEL running for a few minutes or when he had treaded water for about 5 minutes . coughs a bit when lays down. Presently about 40% better No past medical history on file. Current Outpatient Medications: albuterol 90 mcg/actuation inhaler, Inhale 2 (two) puffs every 4 to 6 hours as needed for wheezing, shortness of breath or cough ., Disp: 18 g, Rfl: 0 ipratropium-albuteroL (DUO-NEB) 0.5-2.5 mg/3 ml nebulizer, Take 3 mL by nebulization every 4 to 6 hours as needed for wheezing or shortness of breath ., Disp: 90 mL, Rfl: 0 omeprazole (PRILOSEC OTC) 20 MG tablet, Take 1 (one) tablet (20 mg total) by mouth daily ., Disp: 30 tablet, Rfl: 0 azithromycin (ZITHROMAX) 500 MG tablet, Take 1 (one) tablet (500 mg total) by mouth daily ., Disp: 4 tablet, Rfl: 0 predniSONE (DELTASONE) 10 MG tablet, 4 tab daily. Reduce by 1 tab every 3 days . (Patient not taking: Reported on 06/29/2023 .), Disp: 30 tablet, Rfl: 0 sulfamethoxazole-trimethoprim (BACTRIM DS,SEPTRA DS) 800-160 mg per tablet, Take 1 (one) tablet by mouth 2 (two) times a day . (Patient not taking: Reported on 06/29/2023 .), Disp: 28 tablet, Rfl: 0 SUMAtriptan (IMITREX) 100 MG tablet, Take 1 (one) tablet (100 mg total) by mouth daily as needed for migraine Max of 200 mg in 24hrs ., Disp: 10 tablet, Rfl: 0 Allergies: Patient has no known allergies. HISTORY: Social History Socioeconomic History Marital status: Tobacco Use Smoking status: Former Smokeless tobacco: Former Tobacco comments: using nicotine gum daily about 5 pieces Vaping Use Vaping Use: Never used Substance and Sexual Activity Alcohol use: Not Currently Comment: about one drink per month Drug use: Not Currently Types: Marijuana Sexual activity: Yes Partners: Female Social Determinants of Health Financial Resource Strain: Low Risk (08/29/2022) Overall Financial Resource Strain (CARDIA) Difficulty of Paying Living Expenses: Not hard at all Food Insecurity: No Food Insecurity (08/29/2022) Hunger Vital Sign Worried About Running Out of Food in the Last Year: Never true Ran Out of Food in the Last Year: Never true Transportation Needs: No Transportation Needs (08/29/2022) PRAPARE - Transportation Lack of Transportation (Medical): No Lack of Transportation (Non-Medical): No Social Connections: Unknown (08/24/2021) Social Connection and Isolation Panel [NHANES] Active Member of Clubs or Organizations: Yes Attends Club or Organization Meetings: More than 4 times per year Family History Problem Relation Age of Onset Hypertension Father Hyperlipidemia Father Diabetes Father Cancer Maternal Grandfather lung Diabetes Maternal Grandfather Diabetes Paternal Grandmother Review of Systems Constitutional: Positive for fatigue. Negative for chills, diaphoresis and fever. HENT: Positive for postnasal drip. Negative for sore throat. Eyes: Positive for photophobia. Negative for visual disturbance. Photophobia about 6 weeks ago Respiratory: Positive for choking, chest tightness and shortness of breath. Yellow sputum Cardiovascular: Positive for chest pain and palpitations. Gastrointestinal: Negative for abdominal pain, constipation, diarrhea, nausea and vomiting. Genitourinary: Denies nocturia Musculoskeletal: Negative for back pain. Neurological: Positive for dizziness, light-headedness and headaches. Migraine every 30-60 days. Often with an aura. Assoc with photophobia and nausea Psychiatric/Behavioral: Negative for sleep disturbance. BP 118/82 (BP Location: Left arm, Patient Position: Sitting, BP Cuff Size: X-large Adult) Pulse 65 Wt 80.3 kg (177 lb) SpO2 98% BMI 26.14 kg/m Wt Readings from Last 3 Encounters: 06/29/23 80.3 kg (177 lb) 05/19/23 77.2 kg (170 lb 4.8 oz) 04/18/23 77.1 kg (170 lb) Physical Exam HENT: Head: Normocephalic and atraumatic. Ears: Comments: Bilat TM injected Neck: Trachea: No tracheal deviation. Cardiovascular: Rate and Rhythm: Normal rate and regular rhythm. Heart sounds: No murmur heard. Pulmonary: Breath sounds: Normal breath sounds. No wheezing or rales. Abdominal: Palpations: Abdomen is soft. Tenderness: There is no abdominal tenderness. Musculoskeletal: Cervical back: Neck supple. Right lower leg: No edema. Left lower leg: No edema. Orders Placed This Encounter Procedures XR Chest AP/PA and LAT Standing Status: Future Number of Occurrences: 1 Standing Expiration Date: 06/29/2024 Scheduling Instructions: Fax script to: [facility]- [phone] [facility]-[phone] [facility]-[phone] [facility] - [phone] Order Specific Question: Release to patient Answer: Immediate CT Angiogram Chest Standing Status: Future Standing Expiration Date: 06/29/2024 Scheduling Instructions: Order Specific Question: Does this exam require IV hydration? Answer: No Order Specific Question: Use [facility] Contrast Protocol? Contrast dose may be adjusted by a radiologist based on [facility] Imaging policy. Answer: Yes Order Specific Question: Saline flush Answer: Initiate saline lock, if necessary. 10 mL sodium chloride (PF)(NS) 0.9% contrast line flush, May repeat PRN for patency, Per Technologist (Radiology) for line patency check prior to contrast administration Order Specific Question: IV Contrast Answer: 75 mL iopamidol (ISOVUE-370) 76%, Intravenous, Once in imaging, Per fire protection engineering technician, for 1 dose Order Specific Question: Pre/Post contrast saline flush Answer: 80 mL sodium chloride (PF)(NS) 0.9% intravenous, Once in imaging, Per Technologist (Radiology) for 1 dose: 30 mL BEFORE contrast administration and 50 mL AFTER contrast administration Order Specific Question: Release to patient Answer: Immediate Comprehensive Metabolic Panel Standing Status: Future Number of Occurrences: 1 Standing Expiration Date: 06/29/2024 Order Specific Question: Release to patient Answer: Immediate CBC and Differential Standing Status: Future Number of Occurrences: 1 Standing Expiration Date: 06/28/2024 Order Specific Question: Release to patient Answer: Immediate Sedimentation Rate Standing Status: Future Number of Occurrences: 1 Standing Expiration Date: 06/29/2024 Order Specific Question: Release to patient Answer: Immediate ECG 12 Lead Standing Status: Future Number of Occurrences: 1 Standing Expiration Date: 06/29/2024 Order Specific Question: Release to patient Answer: Immediate For any new medications prescribed today, patient was educated about indications for the medication, how to take the medication and potential side effects of the medications. IMPRESSION: FRANKEL (dyspnea on exertion) ECG had sinus jose @ 55 bpm. Otherwise WNL Had traveled to [place] and [place] prior to these sx. CXR and CTA Otitis media Bilat TM injection. Zithromax 500 mg daily #4 Stef Ricci DO documented in this encounter [facility] 05-20-2023 Note Addended by: AMBER THEODORE on: 05/20/2023 03:38 PM Modules accepted: Orders [facility] 05-20-2023 Note Addended by: AMBER THEODORE on: 05/20/2023 03:38 PM Modules accepted: Orders [facility] 05-20-2023 Miscellaneous Notes Addended by: AMBER THEODORE on: 05/20/2023 03:38 PM Modules accepted: Orders documented in this encounter [facility] 05-20-2023 Instructions Aaron Sawyer PA-C - 05/20/2023 1:51 PM EST Images from the original note were not included. You may use your albuterol inhaler 1-2 puffs every 4-6 hours or your nebulizer as needed for cough, wheezing, or shortness of breath. If your cough is worse at night you can use inhaler about 30-60 minutes prior to bedtime. Take steroid with food and early in the morning/day if possible. This may keep you up at night if taken too late in the day. Please avoid ibuprofen or other NSAID containing products while taking the steroid to avoid gastrointestinal upset. Prednisone can also raise your glucose level so if you are a diabetic please monitor your sugars closely. If no continued improvement please start the doxycycline. Take the full course of antibiotics with food and plenty of water. I recommend a probiotic and/or yogurt while taking an antibiotic to help prevent GI upset/diarrhea. IF RAPIDLY WORSENING OR OTHER CONCERNING SYMPTOMS INCLUDING CHEST PAIN,SHORTNESS OF BREATH, UNCONTROLLABLE FEVER, ABDOMINAL PAIN, DIFFICULTY BREATHING OR SWALLOWING PLEASE GO TO THE ED OTHERWISE FOLLOW UP WITH YOUR FAMILY DOCTOR IN 2-3 DAYS FOR RECHECK, SOONER IF WORSENING. Cough: Care Instructions Overview A cough is your body's response to something that bothers your throat or airways. Many things can cause a cough. You might cough because of a cold or the flu, bronchitis, or asthma. Smoking, postnasal drip, allergies, and stomach acid that backs up into your throat also can cause coughs. A cough is a symptom, not a disease. Most coughs stop when the cause, such as a cold, goes away. You can take a few steps at home to cough less and feel better. Follow-up care is a [place] part of your treatment and safety. Be sure to make and go to all appointments, and call your doctor if you are having problems. It's also a good idea to know your test results and keep a list of the medicines you take. How can you care for yourself at home? Drink lots of water and other fluids. This helps thin the mucus and soothes a dry or sore throat. Honey or lemon juice in hot water or tea may ease a dry cough. Take cough medicine as directed by your doctor. Prop up your head on pillows to help you breathe and ease a dry cough. Try cough drops or hard candy to soothe a dry or sore throat. Do not smoke. Avoid secondhand smoke. If you need help quitting, talk to your doctor about stop-smoking programs and medicines. These can increase your chances of quitting for good. When should you call for help? Call 911 anytime you think you may need emergency care. For example, call if: You have severe trouble breathing. Call your doctor now or seek immediate medical care if: You cough up blood. You have new or worse trouble breathing. You have a new or higher fever. You have a new rash. Watch closely for changes in your health, and be sure to contact your doctor if: You cough more deeply or more often, especially if you notice more mucus or a change in the color of your mucus. You have new symptoms, such as a sore throat, an earache, or sinus pain. You do not get better as expected. Where can you learn more? Log into your personal health record on [email or web address] and enter D279 in the Education box to learn more about Cough: Care Instructions. Current as of: August 02, 2022 Content Version: 13.9 [employer]. Care instructions adapted under license by your healthcare professional. If you have questions about a medical condition or this instruction, always ask your healthcare professional. [employer] disclaims any warranty or liability for your use of this information. documented in this encounter [facility] 05-19-2023 History of Presen t illness Narrative Images from the original note were not included. Patient Name: [facility] Location: Fabricio An [address] [place] [address] [address] [facility] [address] Date Of : Date Of Visit: 1990 05/19/2023 MRN# Provider: [id number] Aaron Sawyer PA-C Chief Complaint Patient presents with Cough Pt has had a cough, shortness of breath, wheezing, that started around 05/12. Pt was around someone with RSV and pneumonia. Assessment & Plan 1. Wheezing ipratropium-albuteroL (DUO-NEB) 0.5-2.5 mg/3 ml nebulizer solution 3 mL predniSONE (DELTASONE) 20 MG tablet albuterol 90 mcg/actuation inhaler ipratropium-albuteroL (DUO-NEB) 0.5-2.5 mg/3 ml nebulizer 2. LRTI (lower respiratory tract infection) doxycycline hyclate (VIBRAMYCIN) 100 MG capsule No follow-ups on file. Medical Decision Making This is a 33-year-old male who presents to urgent care for cough shortness of breath and wheezing. States he has been coughing for many months off-and-on. Initially on exam patient does have some decreased breath sounds in all lung gastelum. He was given a DuoNeb breathing treatment with significant improvement in his symptoms. Will send patient home with DuoNeb solution as he states he has a nebulizer at home for his son. He was also sent home with tubing and mouthpiece. Patient will also be sent a prednisone burst. Side effects of medication were discussed. We discussed viral versus bacterial etiology of his current symptoms. Discussed with patient I do not have x-ray capabilities here in the urgent care this evening. At this time I have a low clinical sufficient for ACS or PE. We discussed if no improvement in his symptoms he is to start the doxycycline I have sent to his pharmacy. Side effects of medication discussed. We discussed close follow-up with PCP or here in the urgent care for x-ray if no improvement in his symptoms despite treatment. Strict ED precautions were given. He is afebrile and hemodynamically stable. All questions were answered and patient voiced understanding of plan. Patient stable condition upon leaving the urgent care. Please note that portions of this note may have been completed with a voice recognition software. Efforts were made to correct any errors, but occasionally words are mis-transcribed or grammatical errors occur. Additional Clinical Comments Discussed over the counter medications for symptomatic management and side effects of medications. Recommended taking all medications with food and to stop medications if they develop any signs of an allergic reaction. Educated patient and/or guardian about signs and symptoms that would warrant further immediate evaluation. Recommended that they should return to urgent care, make an appointment with their family physician, or go to the emergency room if symptoms persist or get acutely worse. Recommended follow up within the next week with their PCP or to get established with a PCP soon in order to follow up appropriately. Subjective 33 y.o. male presents with Cough (Pt has had a cough, shortness of breath, wheezing, that started around 05/12. Pt was around someone with RSV and pneumonia.) 03/30/23 - diagnosed with viral URI, paronychia and staph infection. Was doxycycline Albuterol and Tessalon Perles and mupirocin. He completed medications as prescribed. 04/18/23 -he was seen in the urgent care and diagnosed with a sinus infection. He was prescribed Augmentin but states he did not take the medication at that time because after a week he felt better. States he continues to cough. States the cough is productive. States he was recently exposed to pneumonia and RSV. States he has been wheezing at times. He has been using his albuterol Tessalon Perles as needed. No known exposure to COVID strep or flu. He has not had a chest x-ray at this time. Cough This is a new problem. The current episode started more than 1 month ago. The problem has been unchanged. The cough is Productive of sputum. Associated symptoms include shortness of breath and wheezing. Pertinent negatives include no chills, ear pain, fever, postnasal drip, rhinorrhea or sore throat. Nothing aggravates the symptoms. He has tried a beta-agonist inhaler (tessalon) for the symptoms. His past medical history is significant for asthma. Review Of Systems Review of Systems Constitutional: Negative for chills and fever. HENT: Positive for congestion, sinus pressure and sinus pain. Negative for ear pain, postnasal drip, rhinorrhea and sore throat. Respiratory: Positive for cough, shortness of breath and wheezing. Hematological: Positive for adenopathy. All other systems reviewed and are negative. Medical History History reviewed. No pertinent past medical history. Past Surgical History: Procedure Laterality Date left little toe amputation Left lisfranc fracture foot Right Patient Active Problem List Diagnosis Deviated nasal septum Foot pain, left Annual physical exam Sore throat Social History Social History Tobacco Use Smoking status: Former Smokeless tobacco: Former Tobacco comments: using nicotine gum daily about 5 pieces Vaping Use Vaping Use: Never used Substance Use Topics Alcohol use: Not Currently Comment: about one drink per month Drug use: Not Currently Types: Marijuana Family History Family History Problem Relation Age of Onset Hypertension Father Hyperlipidemia Father Diabetes Father Cancer Maternal Grandfather lung Diabetes Maternal Grandfather Diabetes Paternal Grandmother Objective Physical Exam BP 117/75 (BP Location: Left arm, Patient Position: Sitting, BP Cuff Size: Adult) Pulse 63 Temp 97.1 F (36.2 C) (Tympanic) Resp 16 Ht 5' 9 Wt 77.2 kg (170 lb 4.8 oz) SpO2 96% BMI 25.15 kg/m Vision/Hearing Exam:No results found. Physical Exam Vitals and nursing note reviewed. Constitutional: General: He is not in acute distress. Appearance: He is well-developed. He is not toxic-appearing or diaphoretic. HENT: Head: Normocephalic and atraumatic. Right Ear: Tympanic membrane, ear canal and external ear normal. Left Ear: Tympanic membrane, ear canal and external ear normal. Nose: Congestion present. Right Sinus: Maxillary sinus tenderness present. No frontal sinus tenderness. Left Sinus: Maxillary sinus tenderness present. No frontal sinus tenderness. Mouth/Throat: Mouth: Mucous membranes are moist. Pharynx: Oropharynx is clear. No oropharyngeal exudate or posterior oropharyngeal erythema. Eyes: General: Right eye: No discharge. Left eye: No discharge. Conjunctiva/sclera: Conjunctivae normal. Cardiovascular: Rate and Rhythm: Normal rate and regular rhythm. Heart sounds: Normal heart sounds. Pulmonary: Effort: Pulmonary effort is normal. No respiratory distress. Breath sounds: No wheezing or rales. Comments: Mildly decreased lung sounds in all lung gastelum. No conversational dyspnea. Respirations are easy and unlabored. Abdominal: General: There is no distension. Musculoskeletal: General: Normal range of motion. Cervical back: Normal range of motion and neck supple. Skin: Findings: No rash. Neurological: General: No focal deficit present. Mental Status: He is alert. Psychiatric: Behavior: Behavior normal. Thought Content: Thought content normal. Judgment: Judgment normal. Procedure Notes Procedures Results No results found for this or any previous visit (from the past 168 hour(s)). No orders to display Orders Placed This Visit No orders of the defined types were placed in this encounter. Medication List At End Of Visit Current Outpatient Medications Medication Sig Dispense Refill albuterol 90 mcg/actuation inhaler Inhale 2 (two) puffs every 4 to 6 hours as needed for wheezing, shortness of breath or cough . 18 g 0 doxycycline hyclate (VIBRAMYCIN) 100 MG capsule Take 1 (one) capsule (100 mg total) by mouth 2 (two) times a day for 7 days . 14 capsule 0 ipratropium-albuteroL (DUO-NEB) 0.5-2.5 mg/3 ml nebulizer Take 3 mL by nebulization every 4 to 6 hours as needed for wheezing or shortness of breath . 90 mL 0 predniSONE (DELTASONE) 20 MG tablet Take 2 (two) tablets (40 mg total) by mouth daily for 5 days . 10 tablet 0 No current facility-administered medications for this visit. Patient Instructions You may use your albuterol inhaler 1-2 puffs every 4-6 hours or your nebulizer as needed for cough, wheezing, or shortness of breath. If your cough is worse at night you can use inhaler about 30-60 minutes prior to bedtime. Take steroid with food and early in the morning/day if possible. This may keep you up at night if taken too late in the day. Please avoid ibuprofen or other NSAID containing products while taking the steroid to avoid gastrointestinal upset. Prednisone can also raise your glucose level so if you are a diabetic please monitor your sugars closely. If no continued improvement please start the doxycycline. Take the full course of antibiotics with food and plenty of water. I recommend a probiotic and/or yogurt while taking an antibiotic to help prevent GI upset/diarrhea. IF RAPIDLY WORSENING OR OTHER CONCERNING SYMPTOMS INCLUDING CHEST PAIN,SHORTNESS OF BREATH, UNCONTROLLABLE FEVER, ABDOMINAL PAIN, DIFFICULTY BREATHING OR SWALLOWING PLEASE GO TO THE ED OTHERWISE FOLLOW UP WITH YOUR FAMILY DOCTOR IN 2-3 DAYS FOR RECHECK, SOONER IF WORSENING. Cough: Care Instructions Overview A cough is your body's response to something that bothers your throat or airways. Many things can cause a cough. You might cough because of a cold or the flu, bronchitis, or asthma. Smoking, postnasal drip, allergies, and stomach acid that backs up into your throat also can cause coughs. A cough is a symptom, not a disease. Most coughs stop when the cause, such as a cold, goes away. You can take a few steps at home to cough less and feel better. Follow-up care is a [place] part of your treatment and safety. Be sure to make and go to all appointments, and call your doctor if you are having problems. It's also a good idea to know your test results and keep a list of the medicines you take. How can you care for yourself at home? Drink lots of water and other fluids. This helps thin the mucus and soothes a dry or sore throat. Honey or lemon juice in hot water or tea may ease a dry cough. Take cough medicine as directed by your doctor. Prop up your head on pillows to help you breathe and ease a dry cough. Try cough drops or hard candy to soothe a dry or sore throat. Do not smoke. Avoid secondhand smoke. If you need help quitting, talk to your doctor about stop-smoking programs and medicines. These can increase your chances of quitting for good. When should you call for help? Call 911 anytime you think you may need emergency care. For example, call if: You have severe trouble breathing. Call your doctor now or seek immediate medical care if: You cough up blood. You have new or worse trouble breathing. You have a new or higher fever. You have a new rash. Watch closely for changes in your health, and be sure to contact your doctor if: You cough more deeply or more often, especially if you notice more mucus or a change in the color of your mucus. You have new symptoms, such as a sore throat, an earache, or sinus pain. You do not get better as expected. Where can you learn more? Log into your personal health record on [email or web address]://[email or web address].Brandle and enter D279 in the Education box to learn more about Cough: Care Instructions. Current as of: August 02, 2022 Content Version: 13.9 [employer]. Care instructions adapted under license by your healthcare professional. If you have questions about a medical condition or this instruction, always ask your healthcare professional. [employer] disclaims any warranty or liability for your use of this information. documented in this encounter [facility] 04-18-2023 Instructions Ricardo Bey, ALEXI - 04/18/2023 4:57 PM EST Take the full course of antibiotics with food and plenty of water. I recommend a probiotic and/or yogurt while taking an antibiotic to help prevent GI upset/diarrhea. For your congestion please take a daily antihistamine such as Claritin (loratidine), Zyrtec (cetirizine), Xyzal (levocetirizine) or Micaela (fexofenadine). You can also take Benadryl (diphenhydramine) as needed every 6 hours but caution - this medication may make you drowsy. You may also try a nasal spray such as Flonase (fluticasone). This is dosed as 1-2 sprays in each nostril daily. You can alternate ibuprofen (Advil) and acetaminophen (Tylenol) as needed for pain and fever. You can alternate as often as every 3 hours. You can take up to 600-800mg of ibuprofen per dose and 1000mg of acetaminophen per dose. You can also take both of these medications at the same time and repeat every 6-8 hours. Please do not exceed 2400mg of ibuprofen and 4000mg(4g) of acetaminophen in a 24 hour time period. Take medications with food and make sure you are drinking plenty of water. IF RAPIDLY WORSENING OR OTHER CONCERNING SYMPTOMS INCLUDING CHEST PAIN,SHORTNESS OF BREATH, UNCONTROLLABLE FEVER, ABDOMINAL PAIN, DIFFICULTY BREATHING OR SWALLOWING PLEASE GO TO THE ED OTHERWISE FOLLOW UP WITH YOUR FAMILY DOCTOR IN 3-5 DAYS FOR RECHECK, SOONER IF WORSENING. The following attachments cannot be sent through Care Everywhere.Sinusitis: Acute (Greek)documented in this encounter [facility] 04-18-2023 History of Presen t illness Narrative Images from the original note were not included. Patient Name: [facility] Location: [facility] [address] [place] [address] [address] [facility] [id number] Date Of : Date Of Visit: 1990 04/18/2023 MRN# Provider: [id number] Ricardo Zhu CNP Chief Complaint Patient presents with Cough Still having cough and sob Photophobia Wearing sunglasses due to light sensitivity, pounding headache at all times, x2 weeks Assessment & Plan 1. Pansinusitis, unspecified chronicity amoxicillin-clavulanate (Augmentin) 875-125 mg per tablet benzonatate (TESSALON) 200 MG capsule Return if symptoms worsen or fail to improve, for pcp. Medical Decision Making 33-year-old nontoxic male presents with complaint of sinus pressure and congestion, worsening cough, headache and photophobia. no known fever. On exam, VSS - afebrile. Non-toxic in appearance. Nasal congestion; mild erythema to throat. + frontal and maxillary sinus tenderness; + anterior cervical adenopathy. Due to symptom presentation and duration, diagnosed with Sinusitis and prescribed oral antibiotics. Flonase and Ibuprofen recommended for nasal congestion and pain. Instructed to follow-up with PCP if symptoms worsen or persist in 5-7 days. Follow-up with ED for any respiratory distress. Patient verbalized understanding and agreement with plan of care and discharge instructions. Discharged in stable condition. Additional Clinical Comments Discussed over the counter medications for symptomatic management and side effects of medications. Recommended taking all medications with food and to stop medications if they develop any signs of an allergic reaction. Educated patient and/or guardian about signs and symptoms that would warrant further immediate evaluation. Recommended that they should return to urgent care, make an appointment with their family physician, or go to the emergency room if symptoms persist or get acutely worse. Recommended follow up within the next week with their PCP or to get established with a PCP soon in order to follow up appropriately. Subjective 33 y.o. male presents with Cough (Still having cough and sob ) and Photophobia (Wearing sunglasses due to light sensitivity, pounding headache at all times, x2 weeks ) Sinusitis This is a new problem. The current episode started in the past 7 days. The problem has been waxing and waning since onset. There has been no fever. His pain is at a severity of 4/10. Associated symptoms include congestion, coughing, headaches, sinus pressure and a sore throat. Pertinent negatives include no chills, diaphoresis, ear pain, hoarse voice, neck pain, shortness of breath, sneezing or swollen glands. Past treatments include oral decongestants. The treatment provided mild relief. Review Of Systems Review of Systems Constitutional: Negative. Negative for appetite change, chills, diaphoresis, fatigue and fever. HENT: Positive for congestion, sinus pressure and sore throat. Negative for ear pain, hoarse voice, postnasal drip, rhinorrhea and sneezing. Respiratory: Positive for cough. Negative for shortness of breath and wheezing. Cardiovascular: Negative for chest pain. Gastrointestinal: Negative for abdominal pain, constipation, nausea and vomiting. Musculoskeletal: Negative for arthralgias, joint swelling and neck pain. Skin: Negative for rash. Allergic/Immunologic: Negative for environmental allergies. Neurological: Positive for headaches. Negative for dizziness, weakness and numbness. Medical History History reviewed. No pertinent past medical history. Past Surgical History: Procedure Laterality Date left little toe amputation Left lisfranc fracture foot Right Patient Active Problem List Diagnosis Deviated nasal septum Foot pain, left Annual physical exam Sore throat Social History Social History Tobacco Use Smoking status: Former Smokeless tobacco: Former Tobacco comments: using nicotine gum daily about 5 pieces Vaping Use Vaping Use: Never used Substance Use Topics Alcohol use: Not Currently Comment: about one drink per month Drug use: Not Currently Types: Marijuana Family History Family History Problem Relation Age of Onset Hypertension Father Hyperlipidemia Father Diabetes Father Cancer Maternal Grandfather lung Diabetes Maternal Grandfather Diabetes Paternal Grandmother Objective Physical Exam BP 117/79 (BP Location: Left arm, Patient Position: Sitting) Pulse 82 Temp 98.8 F (37.1 C) (Tympanic) Resp 16 Ht 5' 8 Wt 77.1 kg (170 lb) SpO2 97% BMI 25.85 kg/m Vision/Hearing Exam:No results found. Physical Exam Vitals and nursing note reviewed. Constitutional: General: He is not in acute distress. Appearance: Normal appearance. He is not toxic-appearing or diaphoretic. HENT: Head: Normocephalic and atraumatic. Right Ear: Hearing, tympanic membrane, ear canal and external ear normal. Left Ear: Tympanic membrane, ear canal and external ear normal. Nose: Congestion present. Right Turbinates: Swollen. Left Turbinates: Swollen. Right Sinus: Maxillary sinus tenderness and frontal sinus tenderness present. Left Sinus: Maxillary sinus tenderness and frontal sinus tenderness present. Mouth/Throat: Mouth: Mucous membranes are moist. Eyes: Extraocular Movements: Extraocular movements intact. Pupils: Pupils are equal, round, and reactive to light. Cardiovascular: Rate and Rhythm: Normal rate and regular rhythm. Pulses: Normal pulses. Heart sounds: Normal heart sounds. Pulmonary: Effort: Pulmonary effort is normal. Breath sounds: Normal breath sounds. Abdominal: General: Abdomen is flat. Bowel sounds are normal. Musculoskeletal: Cervical back: Normal range of motion and neck supple. Skin: General: Skin is warm. Neurological: Mental Status: He is alert. Procedure Notes Procedures Results No results found for this or any previous visit (from the past 168 hour(s)). No orders to display Orders Placed This Visit No orders of the defined types were placed in this encounter. Medication List At End Of Visit Current Outpatient Medications Medication Sig Dispense Refill albuterol 90 mcg/actuation inhaler Inhale 2 (two) puffs every 6 (six) hours as needed for wheezing . (Patient not taking: Reported on 03/30/2023 .) 18 g 0 albuterol 90 mcg/actuation inhaler Inhale 2 (two) puffs every 6 (six) hours as needed for wheezing or cough . 8 g 0 amoxicillin-clavulanate (Augmentin) 875-125 mg per tablet Take 1 (one) tablet by mouth 2 (two) times a day for 10 days . 20 tablet 0 benzonatate (TESSALON) 200 MG capsule Take 1 (one) capsule (200 mg total) by mouth 3 (three) times a day as needed for cough . 90 capsule 0 guaifenesin/pseudoephedrne HCl (MUCINEX D ORAL) Take by mouth . No current facility-administered medications for this visit. Patient Instructions Take the full course of antibiotics with food and plenty of water. I recommend a probiotic and/or yogurt while taking an antibiotic to help prevent GI upset/diarrhea. For your congestion please take a daily antihistamine such as Claritin (loratidine), Zyrtec (cetirizine), Xyzal (levocetirizine) or Micaela (fexofenadine). You can also take Benadryl (diphenhydramine) as needed every 6 hours but caution - this medication may make you drowsy. You may also try a nasal spray such as Flonase (fluticasone). This is dosed as 1-2 sprays in each nostril daily. You can alternate ibuprofen (Advil) and acetaminophen (Tylenol) as needed for pain and fever. You can alternate as often as every 3 hours. You can take up to 600-800mg of ibuprofen per dose and 1000mg of acetaminophen per dose. You can also take both of these medications at the same time and repeat every 6-8 hours. Please do not exceed 2400mg of ibuprofen and 4000mg(4g) of acetaminophen in a 24 hour time period. Take medications with food and make sure you are drinking plenty of water. IF RAPIDLY WORSENING OR OTHER CONCERNING SYMPTOMS INCLUDING CHEST PAIN,SHORTNESS OF BREATH, UNCONTROLLABLE FEVER, ABDOMINAL PAIN, DIFFICULTY BREATHING OR SWALLOWING PLEASE GO TO THE ED OTHERWISE FOLLOW UP WITH YOUR FAMILY DOCTOR IN 3-5 DAYS FOR RECHECK, SOONER IF WORSENING. documented in this encounter [facility] 03-30-2023 Instructions Nany Trimble PA-C - 03/30/2023 10:01 AM EDT -Doxycycline as prescribed. All antibiotics can cause diarrhea. Recommend taking OTC probiotic and eating at least one yogurt daily to help prevent this from occurring. -Topical mupirocin as prescribed to left nostril and fingers. -Warm water soaks x 10 minutes four times daily of digits of right hand. If worsening or collection of pus, please report to urgent care or primary care for possible incision and drainage. -Capmist and tessalon perles as needed for cough relief. -Albuterol as needed for chest congestion and cough. -Make sure to get plenty of rest and increase fluid intake. -F/u with PCP in 7 days if symptoms continue, sooner if worsening symptoms. The following attachments cannot be sent through Care Everywhere.URI (Upper Respiratory Infection): Viral (Greek)Paronychia (Greek)documented in this encounter [facility] 03-30-2023 History of Presen t illness Narrative Images from the original note were not included. Patient Name: [facility] Location: [facility] [address] [place] [address] [address] [facility] [id number] Date Of : Date Of Visit: 1990 03/30/2023 MRN# Provider: [id number] Nany Trimble PA-C Chief Complaint Patient presents with Rash Patient states he has been exposed to hand, foot & mouth by his son. He has redness inside his nose, a spot on the right side of his chin x 2 weeks. Cough, ST, fatigue, body aches, chills x 2 days. Assessment & Plan 1. Viral URI with cough POC Influenza A/B, Molecular COVID-19, Molecular POC Strep A - Molecular [id number] (Capmist DM) 60-15-400 mg Tab benzonatate (TESSALON) 100 MG capsule albuterol 90 mcg/actuation inhaler 2. Paronychia of finger of right hand doxycycline hyclate (VIBRAMYCIN) 100 MG capsule mupirocin (BACTROBAN) 2 % ointment 3. Abrasion of nose with infection, initial encounter doxycycline hyclate (VIBRAMYCIN) 100 MG capsule mupirocin (BACTROBAN) 2 % ointment Return in about 1 week (around 04/06/2023) for Recheck with PCP. Medical Decision Making Presents urgent care for evaluation of URI symptoms x2 days and rash x2 weeks. Patient reports cough, sore throat, fatigue, myalgias, chills x2 days. Denies fever, nausea, vomiting. Has been managing symptoms with NSAIDs with mild relief. On physical exam, patient overall nontoxic in appearance. There is nasal congestion and rhinorrhea. There is mild erythema of the posterior pharynx. I did not appreciate any vesicular or papular lesions of the posterior pharynx. Uvula midline. No signs of TOE FORMER STITCHDOWNS or RPA. No drooling, tripoding, trismus. Lungs CTA in all gastelum. COVID, influenza, and strep testing negative. Presentation consistent with viral URI. Patient started on CapMist, Tessalon Perles, and albuterol inhaler. Rest and hydration. Patient also reports rash x2 weeks. Patient reports that he was recently exposed to [id number]-mouth through his son who is 13 months old and attends daycare. Patient reports that he has had 1 lesion to the right side of his chin and irritation in the left nostril. He has had some irritation surrounding the nailbed of the index and middle finger of the right hand. On physical exam, there is an erythematous papule of the right chin. There is also an erythematous papule of the left nare. There appears to be a paronychia of the right index and middle finger. No necrosis, crepitus, fluctuance, or purulent discharge. Do not feel that incision and drainage is necessary at this time. There is no rash of the feet or palms. Clinical presentation does not appear consistent with hand, foot, mouth. I suspect possible bacterial component. Patient has no history of MRSA infection, but given involvement of left nare will cover with doxycycline and topical Bactroban. Warm water soaks for paronychia; report to the urgent care for incision and drainage with any worsening symptoms. Reviewed signs and symptoms of worsening infection, and patient advised to seek medical reevaluation if observed. Work note provided. Work note provided. Recommended f/u with PCP in 7 days if symptoms continue, sooner if worsening symptoms. Pt discharged in stable condition in agreement with the above plan. Additional Clinical Comments Discussed over the counter medications for symptomatic management and side effects of medications. Recommended taking all medications with food and to stop medications if they develop any signs of an allergic reaction. Educated patient and/or guardian about signs and symptoms that would warrant further immediate evaluation. Recommended that they should return to urgent care, make an appointment with their family physician, or go to the emergency room if symptoms persist or get acutely worse. Recommended follow up within the next week with their PCP or to get established with a PCP soon in order to follow up appropriately. Subjective 33 y.o. male presents with Rash (Patient states he has been exposed to hand, foot & mouth by his son. He has redness inside his nose, a spot on the right side of his chin x 2 weeks[address] Cough, ST, fatigue, body aches, chills x 2 days. ) URI This is a new problem. The current episode started in the past 7 days (x 2 days). The problem has been gradually worsening. There has been no fever. Associated symptoms include congestion, coughing, a rash, rhinorrhea and a sore throat. Pertinent negatives include no nausea, sinus pain or vomiting. He has tried NSAIDs (cough drops) for the symptoms. The treatment provided mild relief. Rash This is a new problem. The current episode started 1 to 4 weeks ago (x 2 weeks). The problem has been gradually worsening since onset. The affected locations include the right hand (nose, chin). The rash is characterized by pain and redness. Associated symptoms include congestion, coughing, rhinorrhea and a sore throat. Pertinent negatives include no fever or vomiting. Treatments tried: hibiclen, triple antibiotic ointment. There is no history of asthma. Review Of Systems Review of Systems Constitutional: Negative for chills and fever. HENT: Positive for congestion, postnasal drip, rhinorrhea and sore throat. Negative for sinus pressure and sinus pain. Respiratory: Positive for cough. Gastrointestinal: Negative for nausea and vomiting. Skin: Positive for rash and wound. Negative for color change and pallor. Medical History History reviewed. No pertinent past medical history. Past Surgical History: Procedure Laterality Date left little toe amputation Left lisfranc fracture foot Right Patient Active Problem List Diagnosis Deviated nasal septum Foot pain, left Annual physical exam Sore throat Social History Social History Tobacco Use Smoking status: Former Smokeless tobacco: Former Tobacco comments: using nicotine gum daily about 5 pieces Vaping Use Vaping Use: Never used Substance Use Topics Alcohol use: Not Currently Comment: about one drink per month Drug use: Not Currently Types: Marijuana Family History Family History Problem Relation Age of Onset Hypertension Father Hyperlipidemia Father Diabetes Father Cancer Maternal Grandfather lung Diabetes Maternal Grandfather Diabetes Paternal Grandmother Objective Physical Exam BP 125/81 (BP Location: Right arm) Pulse 97 Temp 97.8 F (36.6 C) (Tympanic) Resp 16 Ht 5' 9 Wt 74.4 kg (164 lb) SpO2 95% BMI 24.22 kg/m Vision/Hearing Exam:No results found. Physical Exam Vitals and nursing note reviewed. Constitutional: General: He is not in acute distress. Appearance: Normal appearance. He is not ill-appearing, toxic-appearing or diaphoretic. HENT: Head: Normocephalic and atraumatic. Right Ear: Tympanic membrane, ear canal and external ear normal. There is no impacted cerumen. Left Ear: Tympanic membrane, ear canal and external ear normal. There is no impacted cerumen. Nose: Nasal tenderness (left nare with erythematous papule present), mucosal edema, congestion and rhinorrhea present. No nasal deformity, septal deviation, signs of injury or laceration. Right Nostril: No foreign body, epistaxis, septal hematoma or occlusion. Left Nostril: No foreign body, epistaxis or septal hematoma. Comments: No nasal abscess Mouth/Throat: Mouth: Mucous membranes are moist. No oral lesions. Tongue: No lesions. Tongue does not deviate from midline. Palate: No mass and lesions. Pharynx: Uvula midline. Posterior oropharyngeal erythema present. No pharyngeal swelling, oropharyngeal exudate or uvula swelling. Tonsils: No tonsillar exudate or tonsillar abscesses. 1+ on the right. 1+ on the left. Comments: No drooling, tripoding or trismus. Pt handling own secretions without difficulty. No mouth lesions Eyes: General: No scleral icterus. Right eye: No discharge. Left eye: No discharge. Conjunctiva/sclera: Conjunctivae normal. Pupils: Pupils are equal, round, and reactive to light. Cardiovascular: Rate and Rhythm: Normal rate and regular rhythm. Pulses: Normal pulses. Heart sounds: Normal heart sounds. No murmur heard. No friction rub. No gallop. Pulmonary: Effort: Pulmonary effort is normal. No respiratory distress. Breath sounds: Normal breath sounds. No stridor. No wheezing, rhonchi or rales. Comments: No conversational dyspnea. No accessory muscle use or retractions. Chest: Chest wall: No tenderness. Musculoskeletal: Right hand: Swelling (erythema, tenderness, swelling of index/middle finger) and tenderness (nail bed of index/middle finger) present. No deformity, lacerations or bony tenderness. Normal range of motion. Normal strength. Normal sensation. Normal capillary refill. Normal pulse. 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 Mental Status: He is alert and oriented to person, place, and time. Mental status is at baseline. Psychiatric: Mood and Affect: Mood normal. Behavior: Behavior normal. Thought Content: Thought content normal. Judgment: Judgment normal. Procedure Notes Procedures Results Recent Results (from the past 168 hour(s)) POC Influenza A/B, Molecular Collection Time: 03/30/23 9:34 AM Result Value Ref Range Influenza A, Molecular Negative Negative Influenza B, Molecular Negative Negative POC Strep A - Molecular Collection Time: 03/30/23 10:03 AM Result Value Ref Range Strep A Screen Negative Negative POC Influenza A/B, Molecular Collection Time: 03/30/23 10:05 AM Result Value Ref Range Influenza A, Molecular Negative Negative Influenza B, Molecular Negative Negative COVID-19, Molecular Collection Time: 03/30/23 10:05 AM Specimen: Nasal; Swab Result Value Ref Range SARS-CoV-2 Not Detected Not Detected No orders to display Orders Placed This Visit Orders Placed This Encounter Procedures POC Influenza A/B, Molecular POC Influenza A/B, Molecular COVID-19, Molecular POC Strep A - Molecular Medication List At End Of Visit Current Outpatient Medications Medication Sig Dispense Refill albuterol 90 mcg/actuation inhaler Inhale 2 (two) puffs every 6 (six) hours as needed for wheezing . (Patient not taking: Reported on 03/30/2023 .) 18 g 0 albuterol 90 mcg/actuation inhaler Inhale 2 (two) puffs every 6 (six) hours as needed for wheezing or cough . 8 g 0 benzonatate (TESSALON) 100 MG capsule Take 1 (one) capsule (100 mg total) by mouth 3 (three) times a day as needed for cough . 9 capsule 0 doxycycline hyclate (VIBRAMYCIN) 100 MG capsule Take 1 (one) capsule (100 mg total) by mouth 2 (two) times a day for 7 days . 14 capsule 0 guaifenesin/pseudoephedrne HCl (MUCINEX D ORAL) Take by mouth . mupirocin (BACTROBAN) 2 % ointment Apply topically 3 (three) times a day for 7 days . 22 g 0 ohotzwsavkrcdsq-KW-lgtjBUEctff (Capmist DM) 60-15-400 mg Tab Take 1 (one) tablet by mouth every 6 (six) hours as needed (nasal congestion, cough) . 16 tablet 0 No current facility-administered medications for this visit. Patient Instructions -Doxycycline as prescribed. All antibiotics can cause diarrhea. Recommend taking OTC probiotic and eating at least one yogurt daily to help prevent this from occurring. -Topical mupirocin as prescribed to left nostril and fingers. -Warm water soaks x 10 minutes four times daily of digits of right hand. If worsening or collection of pus, please report to urgent care or primary care for possible incision and drainage. -Capmist and tessalon perles as needed for cough relief. -Albuterol as needed for chest congestion and cough. -Make sure to get plenty of rest and increase fluid intake. -F/u with PCP in 7 days if symptoms continue, sooner if worsening symptoms. documented in this encounter [facility] 01-22-2023 Instructions Shannon Gabriel PA-C - 01/22/2023 10:24 AM EDT Plan: Take antibiotics as directed. Take the complete course. Recommend taking with probiotic to improve common s/es of nausea, gi upset, and diarrhea Tessalon for cough Albuterol for shortness of breath and wheezing Increase hydration to thin mucus OTC nasal saline spray or Flonase to loosen mucus OTC ibuprofen/tylenol for pain and headache management Please follow up with your primary care after 3 days on the medications to be reassessed, return sooner if symptoms worsen. GO TO THE ED IF: You have new or worse swelling or redness in your face or around your eyes. You have a new or higher fever. Watch closely for changes in your health, and be sure to contact your doctor if: You have new or worse facial pain. The mucus from your nose becomes thicker (like pus) or has new blood in it. You are not getting better as expected. Please consider filling out your after visit review to share your experience with us. We'd love to know how our team is doing! It was a pleasure working with you today. We hope you feel better soon! Best regards, Shannon Gabriel PA-C The following attachments cannot be sent through Care Everywhere.Sinusitis: Acute (Greek)Bronchitis (Greek)documented in this encounter [facility] 01-22-2023 History of Presen t illness Narrative Images from the original note were not included. Patient Name: [facility] Location: [facility] [address] [place] [address] [address] [facility] [id number] Date Of : Date Of Visit: 1990 01/22/2023 MRN# Provider: [id number] Shannon Gabriel PA-C Chief Complaint Patient presents with URI Cough, runny nose, head pressure when bending over, LIRIANO, fatigue, and ST x 6 days. Pt was diagnosed with strep 2 weeks ago, continues to take antibiotics currently Assessment & Plan 1. Acute non-recurrent sinusitis of other sinus cefdinir (OMNICEF) 300 MG capsule 2. Suspected COVID-19 virus infection CANCELED: COVID-19, Molecular 3. Wheezing ipratropium-albuteroL (DUO-NEB) 0.5-2.5 mg/3 ml nebulizer solution 3 mL albuterol 90 mcg/actuation inhaler 4. Acute cough benzonatate (TESSALON) 200 MG capsule No follow-ups on file. Medical Decision Making Afebrile, nontoxic-appearing 32-year-old male presenting for evaluation of 19-day illness. Patient presented to the on 01/13/2023 for evaluation of sore throat, postnasal drip, and mild cough x10 days. He tested positive for strep at this time and was given Augmentin. Patient currently on day 8 of Augmentin and continues with the same symptoms. Additionally, he endorses new head pressure with bending forward, headache, and fatigue. Patient declined COVID testing and opts to test at home. No evidence of TOE FORMER STITCHDOWNS or exudative tonsillitis on inspection of oropharynx. No evidence of AOM, AOE, pneumonia, or respiratory distress. Pulmonary exam reveals expiratory wheezing in the right lower lung field. S/p DuoNeb therapy, wheezing is resolved. Suspect bacterial sinusitis refractory to Augmentin as well as bronchitis.. Will treat with cefdinir, Tessalon, albuterol therapy, and Flonase. Advised follow-up with PCP for continued symptoms. Advised ER precautions. Patient verbalized understanding and acceptance of treatment plan. He was discharged in no apparent distress. Additional Clinical Comments Discussed over the counter medications for symptomatic management and side effects of medications. Recommended taking all medications with food and to stop medications if they develop any signs of an allergic reaction. Educated patient and/or guardian about signs and symptoms that would warrant further immediate evaluation. Recommended that they should return to urgent care, make an appointment with their family physician, or go to the emergency room if symptoms persist or get acutely worse. Recommended follow up within the next week with their PCP or to get established with a PCP soon in order to follow up appropriately. Subjective 32 y.o. male presents with URI (Cough, runny nose, head pressure when bending over, LIRIANO, fatigue, and ST x 6 days. Pt was diagnosed with strep 2 weeks ago, continues to take antibiotics currently) Pt denies taking a home COVID test. URI This is a new problem. The current episode started 1 to 4 weeks ago (19 days). The problem has been gradually worsening (sore throat improved slightly, facial pressure and LIRIANO worse despite 8 days of augmentin). There has been no fever. Associated symptoms include congestion, coughing, headaches, rhinorrhea, sinus pain, a sore throat and wheezing. Pertinent negatives include no abdominal pain, chest pain, diarrhea, dysuria, ear pain, joint swelling, nausea, plugged ear sensation, sneezing or swollen glands. Treatments tried: mucinex-DM. The treatment provided mild relief. Review Of Systems Review of Systems Constitutional: Positive for fatigue. Negative for chills and fever. HENT: Positive for congestion, rhinorrhea, sinus pain and sore throat. Negative for ear pain and sneezing. Respiratory: Positive for cough, shortness of breath (mild) and wheezing. Negative for chest tightness. Cardiovascular: Negative for chest pain. Gastrointestinal: Negative for abdominal pain, diarrhea and nausea. Genitourinary: Negative for dysuria. Neurological: Positive for headaches. Medical History History reviewed. No pertinent past medical history. Past Surgical History: Procedure Laterality Date left little toe amputation Left lisfranc fracture foot Right Patient Active Problem List Diagnosis Deviated nasal septum Foot pain, left Annual physical exam Sore throat Social History Social History Tobacco Use Smoking status: Former Smokeless tobacco: Former Tobacco comments: using nicotine gum daily about 5 pieces Vaping Use Vaping Use: Never used Substance Use Topics Alcohol use: Not Currently Comment: about one drink per month Drug use: Not Currently Types: Marijuana Family History Family History Problem Relation Age of Onset Hypertension Father Hyperlipidemia Father Diabetes Father Cancer Maternal Grandfather lung Diabetes Maternal Grandfather Diabetes Paternal Grandmother Objective Physical Exam BP 116/78 Pulse 81 Temp 98 F (36.7 C) (Tympanic) Resp 16 Ht 5' 8 Wt 75.3 kg (166 lb) SpO2 96% BMI 25.24 kg/m Vision/Hearing Exam:No results found. Physical Exam Vitals reviewed. Constitutional: General: He is not in acute distress. Appearance: He is well-developed. HENT: Head: Normocephalic and atraumatic. Right Ear: Hearing, tympanic membrane, ear canal and external ear normal. Left Ear: Hearing, tympanic membrane, ear canal and external ear normal. Nose: Nose normal. No mucosal edema. Mouth/Throat: Mouth: Mucous membranes are moist. Pharynx: Oropharynx is clear. Uvula midline. Posterior oropharyngeal erythema present. No oropharyngeal exudate. Tonsils: No tonsillar exudate. Comments: Tonsils 1+ without exudates. No TOE FORMER STITCHDOWNS Eyes: Conjunctiva/sclera: Conjunctivae normal. Cardiovascular: Rate and Rhythm: Normal rate and regular rhythm. Pulses: Normal pulses. Heart sounds: Normal heart sounds. No murmur heard. No friction rub. No gallop. Pulmonary: Effort: Pulmonary effort is normal. No respiratory distress. Breath sounds: Wheezing (right lower lung field) present. No rhonchi or rales. Chest: Chest wall: No tenderness. Musculoskeletal: Cervical back: Normal range of motion. Lymphadenopathy: Cervical: No cervical adenopathy. Skin: General: Skin is warm and dry. Neurological: General: No focal deficit present. Mental Status: He is alert and oriented to person, place, and time. Procedure Notes Procedures Results No results found for this or any previous visit (from the past 168 hour(s)). No orders to display Orders Placed This Visit No orders of the defined types were placed in this encounter. Medication List At End Of Visit Current Outpatient Medications Medication Sig Dispense Refill amoxicillin-clavulanate (Augmentin) 875-125 mg per tablet Take 1 (one) tablet by mouth 2 (two) times a day for 10 days . 20 tablet 0 guaifenesin/pseudoephedrne HCl (MUCINEX D ORAL) Take by mouth . nicotine (NICODERM CQ) 7 mg/[address] 1 (one) patch on the skin daily . 84 patch 1 albuterol 90 mcg/actuation inhaler Inhale 2 (two) puffs every 6 (six) hours as needed for wheezing . 18 g 0 benzonatate (TESSALON) 200 MG capsule Take 1 (one) capsule (200 mg total) by mouth 3 (three) times a day as needed for cough . 20 capsule 0 cefdinir (OMNICEF) 300 MG capsule Take 1 (one) capsule (300 mg total) by mouth 2 (two) times a day for 7 days . 14 capsule 0 No current facility-administered medications for this visit. Patient Instructions Plan: Take antibiotics as directed. Take the complete course. Recommend taking with probiotic to improve common s/es of nausea, gi upset, and diarrhea Tessalon for cough Albuterol for shortness of breath and wheezing Increase hydration to thin mucus OTC nasal saline spray or Flonase to loosen mucus OTC ibuprofen/tylenol for pain and headache management Please follow up with your primary care after 3 days on the medications to be reassessed, return sooner if symptoms worsen. GO TO THE ED IF: You have new or worse swelling or redness in your face or around your eyes. You have a new or higher fever. Watch closely for changes in your health, and be sure to contact your doctor if: You have new or worse facial pain. The mucus from your nose becomes thicker (like pus) or has new blood in it. You are not getting better as expected. Please consider filling out your after visit review to share your experience with us. We'd love to know how our team is doing! It was a pleasure working with you today. We hope you feel better soon! Best regards, Shannon Gabriel PA-C documented in this encounter [facility] 01-13-2023 History of Presen t illness Narrative Images from the original note were not included. Patient Name: [facility] Location: [facility] [address] [place] [address] [address] [facility] [id number] Date Of : Date Of Visit: 1990 01/13/2023 MRN# Provider: [id number] Edgardo Ndiaye MD Chief Complaint Patient presents with Sore Throat Sore throat x10 days. Not really coughing. Feeling fatigue and out of it. Post nasal drip. Not taking anything for it. had strep three weeks ago. Assessment & Plan 1. Strep throat POC Strep A - Molecular amoxicillin-clavulanate (Augmentin) 875-125 mg per tablet No follow-ups on file. Medical Decision Making Patient is a 32 year old male who c/o sore throat pain with swallowing for about 10 days. His had strep throat about 3 weeks ago. On exam, + posterior pharyngeal erythema, + anterior cervical tender LAD. POC Strep test + today. Discussed results with patient. Augmentin prescribed today for acute strep pharyngitis. Additional Clinical Comments Discussed over the counter medications for symptomatic management and side effects of medications. Recommended taking all medications with food and to stop medications if they develop any signs of an allergic reaction. Educated patient and/or guardian about signs and symptoms that would warrant further immediate evaluation. Recommended that they should return to urgent care, make an appointment with their family physician, or go to the emergency room if symptoms persist or get acutely worse. Recommended follow up within the next week with their PCP or to get established with a PCP soon in order to follow up appropriately. Subjective 32 y.o. male presents with Sore Throat (Sore throat x10 days. Not really coughing. Feeling fatigue and out of it. Post nasal drip. Not taking anything for it. had strep three weeks ago. ) Sore Throat This is a new problem. Episode onset: 10 days ago. The problem has been gradually worsening. There has been no fever. Associated symptoms include swollen glands. Pertinent negatives include no abdominal pain, congestion, coughing, diarrhea, ear pain, headaches, shortness of breath, trouble swallowing or vomiting. He has had exposure to strep. He has tried NSAIDs for the symptoms. The treatment provided mild relief. Review Of Systems Review of Systems Constitutional: Negative for chills and fever. HENT: Positive for sore throat. Negative for congestion, ear pain, rhinorrhea and trouble swallowing. Respiratory: Negative for cough and shortness of breath. Gastrointestinal: Negative for abdominal pain, diarrhea, nausea and vomiting. Neurological: Negative for headaches. Medical History History reviewed. No pertinent past medical history. Past Surgical History: Procedure Laterality Date left little toe amputation Left lisfranc fracture foot Right Patient Active Problem List Diagnosis Deviated nasal septum Foot pain, left Annual physical exam Sore throat Social History Social History Tobacco Use Smoking status: Former Smokeless tobacco: Former Tobacco comments: using nicotine gum daily about 5 pieces Vaping Use Vaping Use: Never used Substance Use Topics Alcohol use: Not Currently Comment: about one drink per month Drug use: Not Currently Types: Marijuana Family History Family History Problem Relation Age of Onset Hypertension Father Hyperlipidemia Father Diabetes Father Cancer Maternal Grandfather lung Diabetes Maternal Grandfather Diabetes Paternal Grandmother Objective Physical Exam BP 112/71 (BP Location: Right arm, Patient Position: Sitting, BP Cuff Size: Adult) Pulse 71 Temp 97.4 F (36.3 C) (Tympanic) Resp 16 Ht 5' 9 Wt 76.2 kg (168 lb) SpO2 96% BMI 24.81 kg/m Vision/Hearing Exam:No results found. Physical Exam Vitals and nursing note reviewed. Constitutional: General: He is not in acute distress. Appearance: Normal appearance. HENT: Head: Normocephalic and atraumatic. Right Ear: Tympanic membrane, ear canal and external ear normal. Left Ear: Tympanic membrane, ear canal and external ear normal. Nose: No congestion or rhinorrhea. Mouth/Throat: Mouth: Mucous membranes are moist. Pharynx: Posterior oropharyngeal erythema present. No oropharyngeal exudate. Cardiovascular: Rate and Rhythm: Normal rate and regular rhythm. Pulses: Normal pulses. Heart sounds: Normal heart sounds. No murmur heard. Pulmonary: Effort: Pulmonary effort is normal. Breath sounds: Normal breath sounds. No wheezing, rhonchi or rales. Lymphadenopathy: Cervical: Cervical adenopathy present. Neurological: General: No focal deficit present. Mental Status: He is alert and oriented to person, place, and time. Procedure Notes Procedures Results Recent Results (from the past 168 hour(s)) POC Strep A - Molecular Collection Time: 01/13/23 5:29 PM Result Value Ref Range Strep A Screen Positive (A) Negative No orders to display Orders Placed This Visit Orders Placed This Encounter Procedures POC Strep A - Molecular Medication List At End Of Visit Current Outpatient Medications Medication Sig Dispense Refill nicotine (NICODERM CQ) 7 mg/[address] 1 (one) patch on the skin daily . 84 patch 1 amoxicillin-clavulanate (Augmentin) 875-125 mg per tablet Take 1 (one) tablet by mouth 2 (two) times a day for 10 days . 20 tablet 0 No current facility-administered medications for this visit. Patient Instructions Tylenol/Ibuprofen for pain or fever. Chloraseptic spray/cepachol lozenges as needed. Follow up with PCP within 3-5 days if symptoms not improving. ER for any new/worsening complaints. documented in this encounter [facility] 01-13-2023 Instructions Edgardo Ndiaye MD - 01/13/2023 5:35 PM EDT Tylenol/Ibuprofen for pain or fever. Chloraseptic spray/cepachol lozenges as needed. Follow up with PCP within 3-5 days if symptoms not improving. ER for any new/worsening complaints. The following attachments cannot be sent through Care Everywhere.Strep Throat (Greek)documented in this encounter [facility] 10-03-2022 Note Addended by: AMBER THEODORE on: 10/03/2022 08:26 PM Modules accepted: Orders [facility] 10-03-2022 Note Addended by: AMBER THEODORE on: 10/03/2022 08:26 PM Modules accepted: Orders [facility] 10-03-2022 Miscellaneous Notes Addended by: AMBER THEODORE on: 10/03/2022 08:26 PM Modules accepted: Orders documented in this encounter [facility] 10-03-2022 History of Presen t illness Narrative Images from the original note were not included. Patient Name: [facility] Location: [facility] [address] [place] [address] [address] [facility] [phone] Date Of : Date Of Visit: 1990 10/03/2022 MRN# Provider: [id number] Amber Theodore MD Chief Complaint Patient presents with Sore Throat Flu like symptoms x 3 day--vomiting this morning Assessment & Plan 1. Suspected COVID-19 virus infection COVID-19, Molecular 2. Viral syndrome POC Influenza A/B, Molecular 3. Strep throat POC Strep A - Molecular amoxicillin (AMOXIL) 500 MG capsule magic mouthwash susp equal parts viscous lidocaine 2%, diphenhydramine 12.5mg/5mL, maalox [id number]/5mL Return if symptoms worsen or fail to improve. Medical Decision Making Given the negative viral panel and a positive strep test I am treating the patient with amoxicillin and Magic mouthwash and advising the patient to drink plenty of liquids and expect improvement within 48 hours. Additional Clinical Comments Discussed over the counter medications for symptomatic management and side effects of medications. Recommended taking all medications with food and to stop medications if they develop any signs of an allergic reaction. Educated patient and/or guardian about signs and symptoms that would warrant further immediate evaluation. Recommended that they should return to urgent care, make an appointment with their family physician, or go to the emergency room if symptoms persist or get acutely worse. Recommended follow up within the next week with their PCP or to get established with a PCP soon in order to follow up appropriately. Subjective 32 y.o. male presents with Sore Throat (Flu like symptoms x 3 day--vomiting this morning ) Sore Throat This is a new problem. The current episode started in the past 7 days (3 days). The problem has been gradually worsening. Neither side of throat is experiencing more pain than the other. Associated symptoms include vomiting. Pertinent negatives include no abdominal pain, diarrhea, headaches or shortness of breath. Review Of Systems Review of Systems Constitutional: Negative for fever. HENT: Positive for sore throat. Eyes: Negative for visual disturbance. Respiratory: Negative for shortness of breath. Cardiovascular: Negative for chest pain. Gastrointestinal: Positive for vomiting. Negative for abdominal pain and diarrhea. Genitourinary: Negative for dysuria. Musculoskeletal: Negative for myalgias. Skin: Negative for rash. Neurological: Negative for headaches. Psychiatric/Behavioral: Negative for behavioral problems. Medical History History reviewed. No pertinent past medical history. Past Surgical History: Procedure Laterality Date left little toe amputation Left lisfranc fracture foot Right Patient Active Problem List Diagnosis Deviated nasal septum Foot pain, left Annual physical exam Sore throat Social History Social History Tobacco Use Smoking status: Former Smokeless tobacco: Former Tobacco comments: using nicotine gum daily about 5 pieces Vaping Use Vaping status: Never Used Substance Use Topics Alcohol use: Yes Comment: about one drink per month Drug use: Yes Types: Marijuana Family History Family History Problem Relation Age of Onset Hypertension Father Hyperlipidemia Father Diabetes Father Cancer Maternal Grandfather lung Diabetes Maternal Grandfather Diabetes Paternal Grandmother Objective Physical Exam BP (!) 137/92 (BP Location: Left arm, Patient Position: Sitting, BP Cuff Size: X-large Adult) Temp 98.3 F (36.8 C) (Oral) Resp 16 Wt 74.8 kg (165 lb) SpO2 98% BMI 24.37 kg/m Vision/Hearing Exam:No results found. Physical Exam Constitutional: General: He is not in acute distress. Appearance: He is well-developed. He is not ill-appearing, toxic-appearing or diaphoretic. HENT: Head: Normocephalic. Right Ear: Tympanic membrane is not erythematous. Left Ear: Tympanic membrane is not erythematous. Nose: No mucosal edema or rhinorrhea. Mouth/Throat: Palate: No mass and lesions. Pharynx: Oropharynx is clear. No posterior oropharyngeal erythema. Eyes: Conjunctiva/sclera: Conjunctivae normal. Pupils: Pupils are equal, round, and reactive to light. Cardiovascular: Rate and Rhythm: Normal rate and regular rhythm. Pulses: Normal pulses. Heart sounds: Normal heart sounds. No murmur heard. Pulmonary: Effort: No respiratory distress. Breath sounds: Normal breath sounds. No wheezing, rhonchi or rales. Musculoskeletal: General: Normal range of motion. Cervical back: Normal range of motion. Lymphadenopathy: Cervical: No cervical adenopathy. Skin: Findings: No rash. Neurological: General: No focal deficit present. Mental Status: He is alert. Cranial Nerves: No dysarthria or facial asymmetry. Motor: No tremor. Coordination: Coordination normal. Psychiatric: Mood and Affect: Mood normal. Behavior: Behavior normal. Thought Content: Thought content normal. Judgment: Judgment normal. Procedure Notes Procedures Results Recent Results (from the past 168 hour(s)) POC Strep A - Molecular Collection Time: 10/03/22 7:26 PM Result Value Ref Range Strep A Screen Positive (A) Negative POC Influenza A/B, Molecular Collection Time: 10/03/22 7:27 PM Result Value Ref Range Influenza A, Molecular Negative Negative Influenza B, Molecular Negative Negative COVID-19, Molecular Collection Time: 10/03/22 7:27 PM Specimen: Nasopharyngeal; Swab Result Value Ref Range SARS-CoV-2 Not Detected Not Detected No orders to display Orders Placed This Visit Orders Placed This Encounter Procedures POC Influenza A/B, Molecular COVID-19, Molecular POC Strep A - Molecular Medication List At End Of Visit Current Outpatient Medications Medication Sig Dispense Refill nicotine (NICODERM CQ) 7 mg/[address] 1 (one) patch on the skin daily . 84 patch 1 amoxicillin (AMOXIL) 500 MG capsule Take 1 (one) capsule (500 mg total) by mouth 3 (three) times a day for 10 days . 30 capsule 0 atenoloL (TENORMIN) 50 MG tablet Take 1 (one) tablet (50 mg total) by mouth daily . (Patient not taking: Reported on 06/02/2022 .) 30 tablet 1 magic mouthwash susp equal parts viscous lidocaine 2%, diphenhydramine 12.5mg/5mL, maalox [id number]/5mL Swish and spit 5 mL every 6 (six) hours as needed . 120 mL 0 No current facility-administered medications for this visit. There are no Patient Instructions on file for this visit. documented in this encounter [facility] 10-03-2022 History of Presen t illness Narrative Images from the original note were not included. Patient Name: [facility] Location: Fabricio An [facility] [address] [facility] [id number] Date Of : Date Of Visit: 1990 10/03/2022 MRN# Provider: [id number] Amber Theodore MD Chief Complaint Patient presents with Sore Throat Flu like symptoms x 3 day--vomiting this morning Assessment & Plan 1. Suspected COVID-19 virus infection COVID-19, Molecular 2. Viral syndrome POC Influenza A/B, Molecular 3. Strep throat POC Strep A - Molecular amoxicillin (AMOXIL) 500 MG capsule magic mouthwash susp equal parts viscous lidocaine 2%, diphenhydramine 12.5mg/5mL, maalox [id number]/5mL Return if symptoms worsen or fail to improve. Medical Decision Making Given the negative viral panel and a positive strep test I am treating the patient with amoxicillin and Magic mouthwash and advising the patient to drink plenty of liquids and expect improvement within 48 hours. Additional Clinical Comments Discussed over the counter medications for symptomatic management and side effects of medications. Recommended taking all medications with food and to stop medications if they develop any signs of an allergic reaction. Educated patient and/or guardian about signs and symptoms that would warrant further immediate evaluation. Recommended that they should return to urgent care, make an appointment with their family physician, or go to the emergency room if symptoms persist or get acutely worse. Recommended follow up within the next week with their PCP or to get established with a PCP soon in order to follow up appropriately. Subjective 32 y.o. male presents with Sore Throat (Flu like symptoms x 3 day--vomiting this morning ) Sore Throat This is a new problem. The current episode started in the past 7 days (3 days). The problem has been gradually worsening. Neither side of throat is experiencing more pain than the other. Associated symptoms include vomiting. Pertinent negatives include no abdominal pain, diarrhea, headaches or shortness of breath. Review Of Systems Review of Systems Constitutional: Negative for fever. HENT: Positive for sore throat. Eyes: Negative for visual disturbance. Respiratory: Negative for shortness of breath. Cardiovascular: Negative for chest pain. Gastrointestinal: Positive for vomiting. Negative for abdominal pain and diarrhea. Genitourinary: Negative for dysuria. Musculoskeletal: Negative for myalgias. Skin: Negative for rash. Neurological: Negative for headaches. Psychiatric/Behavioral: Negative for behavioral problems. Medical History History reviewed. No pertinent past medical history. Past Surgical History: Procedure Laterality Date left little toe amputation Left lisfranc fracture foot Right Patient Active Problem List Diagnosis Deviated nasal septum Foot pain, left Annual physical exam Sore throat Social History Social History Tobacco Use Smoking status: Former Smokeless tobacco: Former Tobacco comments: using nicotine gum daily about 5 pieces Vaping Use Vaping status: Never Used Substance Use Topics Alcohol use: Yes Comment: about one drink per month Drug use: Yes Types: Marijuana Family History Family History Problem Relation Age of Onset Hypertension Father Hyperlipidemia Father Diabetes Father Cancer Maternal Grandfather lung Diabetes Maternal Grandfather Diabetes Paternal Grandmother Objective Physical Exam BP (!) 137/92 (BP Location: Left arm, Patient Position: Sitting, BP Cuff Size: X-large Adult) Temp 98.3 F (36.8 C) (Oral) Resp 16 Wt 74.8 kg (165 lb) SpO2 98% BMI 24.37 kg/m Vision/Hearing Exam:No results found. Physical Exam Constitutional: General: He is not in acute distress. Appearance: He is well-developed. He is not ill-appearing, toxic-appearing or diaphoretic. HENT: Head: Normocephalic. Right Ear: Tympanic membrane is not erythematous. Left Ear: Tympanic membrane is not erythematous. Nose: No mucosal edema or rhinorrhea. Mouth/Throat: Palate: No mass and lesions. Pharynx: Oropharynx is clear. No posterior oropharyngeal erythema. Eyes: Conjunctiva/sclera: Conjunctivae normal. Pupils: Pupils are equal, round, and reactive to light. Cardiovascular: Rate and Rhythm: Normal rate and regular rhythm. Pulses: Normal pulses. Heart sounds: Normal heart sounds. No murmur heard. Pulmonary: Effort: No respiratory distress. Breath sounds: Normal breath sounds. No wheezing, rhonchi or rales. Musculoskeletal: General: Normal range of motion. Cervical back: Normal range of motion. Lymphadenopathy: Cervical: No cervical adenopathy. Skin: Findings: No rash. Neurological: General: No focal deficit present. Mental Status: He is alert. Cranial Nerves: No dysarthria or facial asymmetry. Motor: No tremor. Coordination: Coordination normal. Psychiatric: Mood and Affect: Mood normal. Behavior: Behavior normal. Thought Content: Thought content normal. Judgment: Judgment normal. Procedure Notes Procedures Results Recent Results (from the past 168 hour(s)) POC Strep A - Molecular Collection Time: 10/03/22 7:26 PM Result Value Ref Range Strep A Screen Positive (A) Negative POC Influenza A/B, Molecular Collection Time: 10/03/22 7:27 PM Result Value Ref Range Influenza A, Molecular Negative Negative Influenza B, Molecular Negative Negative COVID-19, Molecular Collection Time: 10/03/22 7:27 PM Specimen: Nasopharyngeal; Swab Result Value Ref Range SARS-CoV-2 Not Detected Not Detected No orders to display Orders Placed This Visit Orders Placed This Encounter Procedures POC Influenza A/B, Molecular COVID-19, Molecular POC Strep A - Molecular Medication List At End Of Visit Current Outpatient Medications Medication Sig Dispense Refill nicotine (NICODERM CQ) 7 mg/[address] 1 (one) patch on the skin daily . 84 patch 1 amoxicillin (AMOXIL) 500 MG capsule Take 1 (one) capsule (500 mg total) by mouth 3 (three) times a day for 10 days . 30 capsule 0 atenoloL (TENORMIN) 50 MG tablet Take 1 (one) tablet (50 mg total) by mouth daily . (Patient not taking: Reported on 06/02/2022 .) 30 tablet 1 magic mouthwash susp equal parts viscous lidocaine 2%, diphenhydramine 12.5mg/5mL, maalox [id number]/5mL Swish and spit 5 mL every 6 (six) hours as needed . 120 mL 0 No current facility-administered medications for this visit. There are no Patient Instructions on file for this visit. documented in this encounter [facility] 08-29-2022 Evaluation + Plan note Associ ated Problem(s): Annual physical exam 1. BMI is 24.8 Lost 2 lbs in the past year. 2. PHQ-9 is 0 3. D/W pt to get COVID bivalent [facility] 08-29-2022 Miscellaneous Notes Associate d Problem(s): Annual physical exam 1. BMI is 24.8 Lost 2 lbs in the past year. 2. PHQ-9 is 0 3. D/W pt to get COVID bivalent documented in this encounter [facility] 08-29-2022 History of Presen t illness Narrative Fabricio An is a 32 y.o. 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 Would also like a referral to urologist for vasectomy. History reviewed. No pertinent past medical history. Current Outpatient Medications: atenoloL (TENORMIN) 50 MG tablet, Take 1 (one) tablet (50 mg total) by mouth daily . (Patient not taking: Reported on 06/02/2022 .), Disp: 30 tablet, Rfl: 1 nicotine 21-14-7 mg/24 hr PTDS, Use as directed ., Disp: 180 patch, Rfl: 0 tadalafiL 20 MG tablet, Take 1 (one) tablet (20 mg total) by mouth daily as needed for erectile dysfunction Take prior to sexual activity ., Disp: 10 tablet, Rfl: 5 Allergies: Patient has no known allergies. HISTORY: Social History Socioeconomic History Marital status: Tobacco Use Smoking status: Former Smokeless tobacco: Former Tobacco comments: using nicotine gum daily about 5 pieces Vaping Use Vaping status: Never Used Substance and Sexual Activity Alcohol use: Yes Comment: about one drink per month Drug use: Yes Types: Marijuana Sexual activity: Yes Partners: Female Social Determinants of Health Food Insecurity: No Food Insecurity (08/24/2021) Hunger Vital Sign Worried About Running Out of Food in the Last Year: Never true Ran Out of Food in the Last Year: Never true Social Connections: Unknown (08/24/2021) Social Connection and Isolation Panel [NHANES] Active Member of Clubs or Organizations: Yes Attends Club or Organization Meetings: More than 4 times per year Family History Problem Relation Age of Onset Hypertension Father Hyperlipidemia Father Diabetes Father Cancer Maternal Grandfather lung Diabetes Maternal Grandfather Diabetes Paternal Grandmother Review of Systems Constitutional: Negative for chills, diaphoresis, fatigue and fever. HENT: Negative for hearing loss, postnasal drip and sore throat. Eyes: Negative for photophobia and visual disturbance. Respiratory: Negative for cough, chest tightness and shortness of breath. Cardiovascular: Negative for chest pain and palpitations. Gastrointestinal: Negative for abdominal pain, constipation, diarrhea, nausea and vomiting. Musculoskeletal: Positive for back pain. Had several episodes of LBP. Skin: Negative for rash. Neurological: Negative for dizziness, light-headedness and headaches. Hematological: Does not bruise/bleed easily. Psychiatric/Behavioral: Negative for sleep disturbance and suicidal ideas. Ht 5' 9 Wt 76.2 kg (168 lb) BMI 24.81 kg/m Physical Exam HENT: Head: Normocephalic and atraumatic. Neck: Trachea: No tracheal deviation. Cardiovascular: Rate and Rhythm: Normal rate and regular rhythm. Heart sounds: No murmur heard. Pulmonary: Breath sounds: Normal breath sounds. No wheezing or rales. Abdominal: Palpations: Abdomen is soft. Tenderness: There is no abdominal tenderness. Musculoskeletal: Cervical back: Neck supple. Skin: Comments: Multiple nevi. Lesion above right eye is 5x9 mm Orders Placed This Encounter Procedures CBC and Differential Standing Status: Future Standing Expiration Date: 08/29/2023 Order Specific Question: Release to patient Answer: Immediate Basic Metabolic Panel Standing Status: Future Standing Expiration Date: 08/30/2023 Order Specific Question: Release to patient Answer: Immediate Lead, Blood Standing Status: Future Standing Expiration Date: 08/30/2023 Order Specific Question: Release to patient Answer: Immediate Ambulatory referral to Dermatology Standing Status: Future Standing Expiration Date: 08/29/2023 Referral Priority: Routine Referral Type: Evaluate and Treat Referred to Provider: Jb Richards DO Number of Visits Requested: 1 Ambulatory referral to Urology Standing Status: Future Standing Expiration Date: 08/29/2023 Referral Priority: Routine Referral Type: Evaluate and Treat Number of Visits Requested: 1 For any new medications prescribed today, patient was educated about indications for the medication, how to take the medication and potential side effects of the medications. IMPRESSION: Annual physical exam 1. BMI is 24.8 Lost 2 lbs in the past year. 2. PHQ-9 is 0 3. D/W pt to get COVID bivalent Stef Ricci DO documented in this encounter [facility] 06-02-2022 Instructions Shannon Gabriel PA-C - 06/02/2022 11:15 AM EST Back pain Plan: Diclofenac as directed with food. Avoid taking additional NSAIDS while taking diclofenac. Cyclobenzaprine is a muscle relaxant. It can make you drowsy. Do not drive or operate heavy machinery while taking. Recommend to use only at nighttime unless necessary during the daytime. Do not drink alcohol while taking this medication. You may also benefit from heating pads, light stretching and gentle massage. OTC salonpas lidocaine 4% patches for additional relief Follow up with your PCP in the next 3-5 days for ongoing symptoms. You may return to the urgent care at any time for re-evaluation. Finger injury Plan: Diclofenac as above Wear finger splint as much as possible. May remove for hygiene purposes. Follow up with Dr. Cantu's office. A referral has been placed, however you may contact their office in the next day or so to schedule. Dr. Trevon Cantu [address] [place] [address] Please consider filling out your after visit review to share your experience with us. We'd love to know how our team is doing! It was a pleasure working with you today. We hope you feel better soon! Best regards, Shannon Gabriel PA-C The following attachments cannot be sent through Care Everywhere.Back Pain (Greek)documented in this encounter [facility] 06-02-2022 History of Presen t illness Narrative Images from the original note were not included. Patient Name: [facility] Location: Fabricio An [address] [place] [address] [address] [facility] [id number] Date Of : Date Of Visit: 1990 06/02/2022 MRN# Provider: [id number] Shannon Gabriel PA-C Chief Complaint Patient presents with Injury Patient states he fell on the ice last night. He states he has pain in left 5th finger and lower back. Assessment & Plan 1. Injury of left little finger, initial encounter XR Finger(s) Left 2+ Views Apply splint (specify) diclofenac sodium (VOLTAREN) 75 MG EC tablet Ambulatory Referral to [facility] 2. Acute right-sided low back pain without sciatica diclofenac sodium (VOLTAREN) 75 MG EC tablet cyclobenzaprine (FLEXERIL) 10 MG tablet No follow-ups on file. Medical Decision Making 32-year-old male with history of slipped disc in the spring now presenting with left fifth finger injury and low back pain following a fall on the ice last night. Back injury Vital signs stable. History and examination reveals no red flag signs/symptoms concerning for cauda equina syndrome or spinous process/vertebral fracture. Right paraspinal musculature is tender to palpation. No numbness, tingling, or weakness of lower extremities. Suspect lumbar muscle strain. Will treat with diclofenac and cyclobenzaprine. Advised follow-up with PCP if symptoms fail to improve in the next 7 days. Advised ED precautions. All questions answered to patient's satisfaction. Patient verbalized understanding. Finger injury The distal aspect of the left fifth phalanx is tender to palpation and there is ecchymoses on visualization. Skin is intact. Neurovascularly intact. Active ROM intact, strength exam not performed due to pain. XR performed demonstrates mild subluxation of the DIP joint and possible nondisplaced fracture of the distal phalanx. Formal radiology report pending. Straight finger splint applied under my supervision. Rx for diclofenac provided as above. Encouraged icing 3 times daily. Mild subluxation is concerning for possible ligamentous disruption. Referral placed to Dr. Cantu's office for consultation. Patient is amenable to treatment plan. All questions answered to patient satisfaction. Patient verbalized understanding and was discharged in no apparent distress. Additional Clinical Comments Discussed over the counter medications for symptomatic management and side effects of medications. Recommended taking all medications with food and to stop medications if they develop any signs of an allergic reaction. Educated patient and/or guardian about signs and symptoms that would warrant further immediate evaluation. Recommended that they should return to urgent care, make an appointment with their family physician, or go to the emergency room if symptoms persist or get acutely worse. Recommended follow up within the next week with their PCP or to get established with a PCP soon in order to follow up appropriately. Subjective 32 y.o. male presents with Injury (Patient states he fell on the ice last night. He states he has pain in left 5th finger and lower back.) BACK PAIN Onset - last night Known injury? - as below Location- Low back, worse on right side Duration - constant Severity - moderate Description - sharp, radiates around the side of hip Hx of similar back pain - yes - slipped disc in the spring - this episode feels similar Treatments tried and response - Fever - denies Pain radiating to the legs? - denies Numbness or tingling? denies Weakness in legs - denies Bowel or bladder incontinence - denies Additional urinary symptoms - hematuria, dysuria, or increased urinary frequency - denies Associated abdominal pain, CP, SOB, syncope, and palpations? - denies Unexplained weight loss or fevers - denies History of cancer or immune problems - denies Injury The incident occurred 12 to 24 hours ago. The incident occurred at home. The injury mechanism was a fall (pt slipped on the ice and fell, landing on his left side and left small finger). There is an injury to the Lower back. There is an injury to the Left little finger (distal left 5th digit). The pain is moderate (5/10 for both left small finger and back). It is unknown if a foreign body is present. Associated symptoms include numbness (MILD numbness of left small finger - still feels pain with touch and movement), tingling (in left small finger) and weakness (in left small finger). Pertinent negatives include no abdominal pain, chest pain, coughing, difficulty breathing, fussiness, headaches, hearing loss, inability to bear weight, light-headedness, loss of consciousness, memory loss, nausea, neck pain, seizures, visual disturbance or vomiting. There have been no prior injuries to these areas. Review Of Systems Review of Systems Constitutional: Negative for chills, diaphoresis, fatigue and fever. HENT: Negative for hearing loss. Eyes: Negative for visual disturbance. Respiratory: Negative for cough. Cardiovascular: Negative for chest pain. Gastrointestinal: Negative for abdominal pain, nausea and vomiting. Musculoskeletal: Positive for arthralgias, back pain and joint swelling. Negative for neck pain. Skin: Positive for color change (bruising to left small finger). Neurological: Positive for tingling (in left small finger), weakness (in left small finger) and numbness (MILD numbness of left small finger - still feels pain with touch and movement). Negative for dizziness, seizures, loss of consciousness, light-headedness and headaches. Psychiatric/Behavioral: Negative for memory loss. Medical History History reviewed. No pertinent past medical history. Past Surgical History: Procedure Laterality Date left little toe amputation Left lisfranc fracture foot Right Patient Active Problem List Diagnosis Deviated nasal septum Foot pain, left Annual physical exam Sore throat Social History Social History Tobacco Use Smoking status: Former Smokeless tobacco: Former Tobacco comments: using nicotine gum daily about 5 pieces Vaping Use Vaping Use: Never used Substance Use Topics Alcohol use: Yes Comment: about one drink per month Drug use: Yes Types: Marijuana Family History Family History Problem Relation Age of Onset Hypertension Father Hyperlipidemia Father Diabetes Father Cancer Maternal Grandfather lung Diabetes Maternal Grandfather Diabetes Paternal Grandmother Objective Physical Exam BP 121/75 Pulse 89 Temp 98.6 F (37 C) Resp 16 Ht 5' 9 Wt 77.1 kg (170 lb) SpO2 95% BMI 25.10 kg/m Vision/Hearing Exam:No results found. Physical Exam Vitals reviewed. Constitutional: General: He is not in acute distress. Appearance: Normal appearance. He is well-developed. He is not ill-appearing or toxic-appearing. HENT: Head: Normocephalic and atraumatic. Eyes: Conjunctiva/sclera: Conjunctivae normal. Cardiovascular: Rate and Rhythm: Normal rate. Pulses: Normal pulses. Heart sounds: Normal heart sounds. No murmur heard. No friction rub. No gallop. Pulmonary: Effort: Pulmonary effort is normal. Musculoskeletal: Right hand: Normal. Left hand: Swelling (mild swelling of left small finger (distal phalanx and DIP)), tenderness and bony tenderness present. Normal range of motion (active ROM intact). Decreased strength (limited due to pain - left little finger flexion). Normal strength of finger abduction, thumb/finger opposition and wrist extension. Normal sensation. There is no disruption of two-point discrimination. Normal capillary refill. Normal pulse. Lumbar back: Negative right straight leg raise test and negative left straight leg raise test. Back: Comments: B/l hip strength 5/5, b/l knee flexion/extension 5/5 NV intact Skin: General: Skin is warm and dry. Capillary Refill: Capillary refill takes less than 2 seconds. Neurological: Mental Status: He is alert and oriented to person, place, and time. Sensory: Sensation is intact. Psychiatric: Mood and Affect: Mood normal. Behavior: Behavior normal. Thought Content: Thought content normal. Judgment: Judgment normal. Procedure Notes Procedures Results No results found for this or any previous visit (from the past 168 hour(s)). XR Finger(s) Left 2+ Views (Results Pending) Orders Placed This Visit Orders Placed This Encounter Procedures XR Finger(s) Left 2+ Views Ambulatory Referral to [facility] Apply splint (specify) Medication List At End Of Visit Current Outpatient Medications Medication Sig Dispense Refill atenoloL (TENORMIN) 50 MG tablet Take 1 (one) tablet (50 mg total) by mouth daily . (Patient not taking: Reported on 06/02/2022 .) 30 tablet 1 cyclobenzaprine (FLEXERIL) 10 MG tablet Take 1 (one) tablet (10 mg total) by mouth 3 (three) times a day as needed for muscle spasms . 30 tablet 0 diclofenac sodium (VOLTAREN) 75 MG EC tablet Take 1 (one) tablet (75 mg total) by mouth 2 (two) times a day with meals for 10 days . 20 tablet 0 doxycycline hyclate (VIBRAMYCIN) 100 MG capsule 1 tab twice daily with food . (Patient not taking: Reported on 06/02/2022 .) 14 capsule 0 nicotine 21-14-7 mg/24 hr PTDS Use as directed . (Patient not taking: Reported on 06/02/2022 .) 56 patch 0 No current facility-administered medications for this visit. Patient Instructions Back pain Plan: Diclofenac as directed with food. Avoid taking additional NSAIDS while taking diclofenac. Cyclobenzaprine is a muscle relaxant. It can make you drowsy. Do not drive or operate heavy machinery while taking. Recommend to use only at nighttime unless necessary during the daytime. Do not drink alcohol while taking this medication. You may also benefit from heating pads, light stretching and gentle massage. OTC salonpas lidocaine 4% patches for additional relief Follow up with your PCP in the next 3-5 days for ongoing symptoms. You may return to the urgent care at any time for re-evaluation. Finger injury Plan: Diclofenac as above Wear finger splint as much as possible. May remove for hygiene purposes. Follow up with Dr. Cantu's office. A referral has been placed, however you may contact their office in the next day or so to schedule. Dr. Trevon Cantu [address] [place] [address] Please consider filling out your after visit review to share your experience with us. We'd love to know how our team is doing! It was a pleasure working with you today. We hope you feel better soon! Best regards, Shannon Gabriel PA-C documented in this encounter [facility] 03-01-2022 History of Presen t illness Narrative Spoke with patient about results documented in this encounter [facility] 02-25-2022 History of Presen t illness Narrative Addended by: JACKIE NAVARRO on: 02/25/2022 07:28 PM Modules accepted: Orders Subjective Patient ID: Fabricio An is a 32 y.o. male. This is a 32-year-old male who comes into the emergency department today with 2 separate complaints. Patient states that he had unprotected sex about 5 days ago with someone that called him and told him that they were positive for gonorrhea. He was also in contact with another individual who was positive for COVID 4 to 5 days ago. Patient states that he has had a runny nose, and some fatigue for the last 2 to 3 days. He is concerned that he may have COVID. He denies lightheadedness or dizziness. No shortness of breath. He has no dysuria or discharge from the tip of his penis. He called his primary care provider, and was called in a prescription for doxycycline. The following portions of the patient's chart were reviewed in this encounter and updated as appropriate: Tobacco Allergies Meds Med Hx Surg Hx Soc Hx Review of Systems Constitutional: Positive for fatigue. Negative for activity change, appetite change, chills and fever. HENT: Negative for congestion, dental problem, ear discharge, ear pain, sinus pain and sore throat. Eyes: Negative for pain and redness. Respiratory: Negative for chest tightness and shortness of breath. Gastrointestinal: Negative for abdominal pain, nausea and vomiting. Genitourinary: Negative for difficulty urinating, dysuria, penile discharge and testicular pain. Musculoskeletal: Negative for arthralgias, back pain and neck pain. Skin: Negative for color change and wound. Neurological: Negative for dizziness and numbness. Objective Physical Exam Vitals and nursing note reviewed. Constitutional: General: He is not in acute distress. Appearance: Normal appearance. He is normal weight. He is not toxic-appearing. HENT: Head: Normocephalic and atraumatic. Right Ear: Tympanic membrane, ear canal and external ear normal. There is no impacted cerumen. Left Ear: Tympanic membrane, ear canal and external ear normal. There is no impacted cerumen. Nose: Nose normal. No congestion. Cardiovascular: Rate and Rhythm: Normal rate and regular rhythm. Pulmonary: Effort: Pulmonary effort is normal. No respiratory distress. Breath sounds: No wheezing, rhonchi or rales. Abdominal: Tenderness: There is no abdominal tenderness. There is no guarding. Musculoskeletal: General: No tenderness or deformity. Normal range of motion. Cervical back: Normal range of motion. No tenderness. Neurological: Mental Status: He is alert. Procedures Assessment/Plan This patient comes into the urgent care today for 2 separate complaints. Patient was concerned and was exposed to a sexually transmitted infection. He called his primary care provider today and was placed on doxycycline. He was given a shot of Rocephin 500 mg IM in the urgent care, and STD testing is pending. COVID swab today was negative. He was encouraged to get plenty of fluids and return if he has worsening symptoms or any change in his condition. Exam and vital signs benign. Exposure to STD (Primary) - Chlamydia trachomatis and Neisseria gonorrhoeae molecular study; Future - Trichomonas vaginalis molecular study; Future - cefTRIAXone (ROCEPHIN) injection 500 mg Fatigue, unspecified type - Poc Rapid [id number], MOLECULAR manually resulted documented in this encounter [facility] 08-24-2021 Evaluation + Plan note Associ ated Problem(s): Sore throat Pain has been present for 2 weeks. It is starting to improve. Discussed with patient to gargle with salt water or Listerine. If this does not improve he will call for trial of antibiotic. If sore throat persists, will refer to ENT. Patient agrees with this plan. [facility] 08-24-2021 Miscellaneous Notes Associate d Problem(s): Sore throat Pain has been present for 2 weeks. It is starting to improve. Discussed with patient to gargle with salt water or Listerine. If this does not improve he will call for trial of antibiotic. If sore throat persists, will refer to ENT. Patient agrees with this plan. Associated Problem(s): Annual physical exam 1. BMI is 26.6. Pt has gained 8 lbs in the last 7 months. 2. TSH 3. PHQ-9 is 0 4. Up-to-date with vaccines. 5. Patient stays in shape. He is in the [employer]. documented in this encounter [facility] 08-24-2021 Evaluation + Plan note Associ ated Problem(s): Annual physical exam 1. BMI is 26.6. Pt has gained 8 lbs in the last 7 months. 2. TSH 3. PHQ-9 is 0 4. Up-to-date with vaccines. 5. Patient stays in shape. He is in the [employer]. [facility] 08-24-2021 History of Presen t illness Narrative Fabricio An is a 31 y.o. male born on 1990 who presents with Chief Complaint Patient presents with Annual Exam Sore Throat Throat pain 3 weeks, lower part of throat. Pt mentions he has cut back on his nicotine gum from about 8 to 5 pieces and that seem to have helped the pain. Pain has been present for 2-2.5 weeks. History reviewed. No pertinent past medical history. Current Outpatient Medications: atenoloL (TENORMIN) 50 MG tablet, Take 1 (one) tablet (50 mg total) by mouth daily ., Disp: 30 tablet, Rfl: 1 Patient uses a atenolol as needed for public speaking Allergies: Patient has no known allergies. HISTORY: Social History Socioeconomic History Marital status: Tobacco Use Smoking status: Former Smoker Smokeless tobacco: Former User Tobacco comment: using nicotine gum daily about 5 pieces Vaping Use Vaping Use: Never used Substance and Sexual Activity Alcohol use: Yes Comment: about one drink per month Drug use: Yes Types: Marijuana Sexual activity: Yes Partners: Female Social Determinants of Health Food Insecurity: No Food Insecurity Worried About Running Out of Food in the Last Year: Never true Ran Out of Food in the Last Year: Never true Social Connections: Unknown Active Member of Clubs or Organizations: Yes Attends Club or Organization Meetings: More than 4 times per year Family History Problem Relation Age of Onset Hypertension Father Hyperlipidemia Father Diabetes Father Cancer Maternal Grandfather lung Diabetes Maternal Grandfather Diabetes Paternal Grandmother Review of Systems Constitutional: Negative for chills, diaphoresis, fatigue and fever. HENT: Positive for tinnitus and trouble swallowing. Negative for hearing loss, postnasal drip, sore throat and voice change. Odynophagia is getting better Chronic tinnitus Eyes: Negative for visual disturbance. Respiratory: Negative for cough, chest tightness and shortness of breath. Cardiovascular: Negative for chest pain and palpitations. Gastrointestinal: Negative for abdominal pain, constipation, diarrhea, nausea and vomiting. Endocrine: Negative for cold intolerance and heat intolerance. Genitourinary: Negative for difficulty urinating and dysuria. Musculoskeletal: Positive for neck pain. Negative for back pain and neck stiffness. Anterior neck pain closer to kludeep's apple Neurological: Negative for dizziness, light-headedness and headaches. Psychiatric/Behavioral: Negative for sleep disturbance. BP 123/72 (BP Location: Left arm, Patient Position: Sitting, BP Cuff Size: Adult) Pulse 63 Ht 5' 9 Wt 81.6 kg (180 lb) SpO2 99% BMI 26.58 kg/m Physical Exam HENT: Head: Normocephalic and atraumatic. Mouth/Throat: Mouth: Mucous membranes are moist. No oral lesions. Pharynx: Oropharynx is clear. No posterior oropharyngeal erythema. Tonsils: No tonsillar exudate. Neck: Thyroid: No thyromegaly. Trachea: No tracheal deviation. Comments: Al-lateral neck pain more on the left side than right. Cardiovascular: Rate and Rhythm: Normal rate and regular rhythm. Heart sounds: No murmur heard. Pulmonary: Breath sounds: Normal breath sounds. No wheezing or rales. Abdominal: Palpations: Abdomen is soft. Tenderness: There is no abdominal tenderness. Musculoskeletal: Cervical back: Neck supple. Orders Placed This Encounter Procedures TSH Standing Status: Future Standing Expiration Date: 08/24/2022 Order Specific Question: Release to patient Answer: Immediate Basic Metabolic Panel Standing Status: Future Standing Expiration Date: 08/24/2022 Order Specific Question: Release to patient Answer: Immediate CBC and Differential Standing Status: Future Standing Expiration Date: 08/24/2022 Order Specific Question: Release to patient Answer: Immediate For any new medications prescribed today, patient was educated about indications for the medication, how to take the medication and potential side effects of the medications. IMPRESSION: Annual physical exam 1. BMI is 26.6. Pt has gained 8 lbs in the last 7 months. 2. TSH 3. PHQ-9 is 0 4. Up-to-date with vaccines. 5. Patient stays in shape. He is in the [employer]. Sore throat Pain has been present for 2 weeks. It is starting to improve. Discussed with patient to gargle with salt water or Listerine. If this does not improve he will call for trial of antibiotic. If sore throat persists, will refer to ENT. Patient agrees with this plan. Stef Ricci DO documented in this encounter [facility] 01-08-2021 Miscellaneous Notes Associated Problem(s): Foot pain, left Isadora davies. Work up at later date following [employer] basic training. Associated Problem(s): Annual physical exam 1. BMI of 25.4. Patient is physically fit and will be going to basic training for the [employer] on 01/25/21. 2. CBC, CMP, Lipid Panel 3. STD Screening. HIV, Syphilis, GC and Chlamydia 4. PHQ9 of 0 5. Up to date with vaccinations. documented in this encounter [facility] 01-08-2021 History of Presen t illness Narrative Fabricio An is a 30 y.o. male born on 1990 who presents with Chief Complaint Patient presents with Annual Exam HPI: Patient presents reporting that he is generally in good health. He does have concerns for a possible stress fracture in his left foot. He has a history of foot injuries, and has an amputated toe on his left foot due to sludge hammer injury at the age of 15. He was weight lifting and rolled to much weight over his foot 3 weeks ago He has basic training for the [employer] starting 01/25/21 and wants to address this before then but has not sought medical attention because he doesn't want to delay his basic training. 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 Patient would also like to have basic blood work and an STD test performed. No past medical history on file. Current Outpatient Medications: atenolol (TENORMIN) 50 MG tablet, Take 1 (one) tablet (50 mg total) by mouth daily ., Disp: 30 tablet, Rfl: 1 diclofenac sodium 1 % Gel, Apply 2 (two) g topically 4 (four) times a day ., Disp: 100 g, Rfl: 3 tadalafiL (CIALIS) 20 MG tablet, Take 1 (one) tablet (20 mg total) by mouth daily as needed for erectile dysfunction Take prior to sexual activity ., Disp: 10 tablet, Rfl: 5 Allergies: Patient has no known allergies. HISTORY: Social History Socioeconomic History Marital status: Single Spouse name: Not on file Number of children: Not on file Years of education: Not on file Highest education level: Not on file Occupational History Not on file Tobacco Use Smoking status: Former Smoker Smokeless tobacco: Never Used Vaping Use Vaping Use: Never used Substance and Sexual Activity Alcohol use: Not Currently Drug use: Yes Types: Marijuana Sexual activity: Yes Partners: Female Other Topics Concern Not on file Social History Narrative Not on file Social Determinants of Health Financial Resource Strain: Difficulty of Paying Living Expenses: Food Insecurity: Worried About Running Out of Food in the Last Year: Ran Out of Food in the Last Year: Transportation Needs: Lack of Transportation (Medical): Lack of Transportation (Non-Medical): Physical Activity: Days of Exercise per Week: Minutes of Exercise per Session: Stress: Feeling of Stress : Social Connections: Frequency of Communication with Friends and Family: Frequency of Social Gatherings with Friends and Family: Attends Religion Services: Active Member of Clubs or Organizations: Attends Club or Organization Meetings: Marital Status: Family History Problem Relation Age of Onset Hypertension Father Hyperlipidemia Father Diabetes Father Cancer Maternal Grandfather lung Diabetes Maternal Grandfather Diabetes Paternal Grandmother Review of Systems Constitutional: Negative for chills, diaphoresis, fatigue and fever. HENT: Negative for congestion and postnasal drip. Eyes: Negative for visual disturbance. Respiratory: Negative for cough, chest tightness and shortness of breath. Cardiovascular: Negative for chest pain and palpitations. Gastrointestinal: Negative for abdominal pain, constipation, diarrhea, nausea and vomiting. Endocrine: Negative for polydipsia and polyuria. Musculoskeletal: Negative for arthralgias and joint swelling. Amputation of the 5th toe on the left foot. History of fracture of the 5ht metatarsal. Rates pain of left foot as a 2/10 and is intermittent. Skin: Negative for rash. Neurological: Negative for dizziness, light-headedness and headaches. Psychiatric/Behavioral: Negative for agitation and suicidal ideas. The patient is not nervous/anxious. BP 123/75 (BP Location: Left arm, Patient Position: Sitting, BP Cuff Size: Adult) Pulse 70 Ht 5' 9 Wt 78 kg (172 lb) SpO2 98% BMI 25.40 kg/m Physical Exam HENT: Head: Normocephalic and atraumatic. Neck: Trachea: No tracheal deviation. Cardiovascular: Rate and Rhythm: Normal rate and regular rhythm. Heart sounds: No murmur heard. Pulmonary: Breath sounds: Normal breath sounds. No wheezing or rales. Abdominal: Palpations: Abdomen is soft. Tenderness: There is no abdominal tenderness. Musculoskeletal: Cervical back: Neck supple. Comments: Amputated 5th toe on the left foot. Mild swelling of the 4th metatarsal with tenderness. Orders Placed This Encounter Procedures Chlamydia/Gonorrhoeae Amplified RNA Standing Status: Future Standing Expiration Date: 01/08/2022 Order Specific Question: Release to patient Answer: Immediate CBC and Differential Standing Status: Future Standing Expiration Date: 01/08/2022 Order Specific Question: Release to patient Answer: Immediate Comprehensive Metabolic Panel Standing Status: Future Standing Expiration Date: 01/08/2022 Order Specific Question: Release to patient Answer: Immediate Lipid Panel Standing Status: Future Standing Expiration Date: 01/08/2022 Order Specific Question: Release to patient Answer: Immediate HIV Antibody (HIV1/HIV2) Standing Status: Future Standing Expiration Date: 01/08/2022 Order Specific Question: Release to patient Answer: Immediate RPR Standing Status: Future Standing Expiration Date: 01/08/2022 Order Specific Question: Release to patient Answer: Immediate For any new medications prescribed today, patient was educated about indications for the medication, how to take the medication and potential side effects of the medications. IMPRESSION: Annual physical exam 1. BMI of 25.4. Patient is physically fit and will be going to basic training for the [employer] on 01/25/21. 2. CBC, CMP, Lipid Panel 3. STD Screening. HIV, Syphilis, GC and Chlamydia 4. PHQ9 of 0 5. Up to date with vaccinations. Foot pain, left Voltaren gel. Work up at later date following [employer] basic training. Stef Ricci, DO Depression Screening 11/13/2018 01/08/2021 Little interest or pleasure in doing things 0 0 Feeling down, depressed, or hopeless 0 0 PHQ-2 Total Score 0 0 Trouble falling or staying asleep, or sleeping too much 0 0 Feeling tired or having little energy 1 0 Poor appetite or overeating 0 0 Feeling bad about yourself - or that you are a failure or have let yourself or your family down 0 0 Trouble concentrating on things, such as reading the newspaper or watching television 0 0 Moving or speaking so slowly that other people could have noticed. Or the opposite - being so fidgety or restless that you have been moving around a lot more than usual 0 0 Thoughts that you would be better off , or of hurting yourself in some way 0 0 PHQ-9 Total Score 1 0 If you checked off any problems, how difficult have these problems made it for you to do your work, take care of things at home, or get along with other people? Not difficult at all - documented in this encounter [facility] Tachycardia Unspecified tachycardia Annual physical exam Routine general medical examination at a [facility] care facility Sore throat Acute [facility] Exposure to STD- Primary Fatigue, unspecified type documented in this encounter [facility] note* Diagnosis Injury of left little finger, initial encounter- Primary Acute right-sided low back pain without sciatica [facility] Diagnosis Injury of left little finger, initial encounter- Primary Acute right-sided low back pain without sciatica [facility] Diagnosis Vasectomy evaluation- Primary Other general counseling and advice for contraceptive management Multiple atypical skin moles Annual physical exam Routine general medical examination at a health care facility Lead exposure Personal history of contact with and (suspected) exposure to lead [facility] Diagnosis Vasectomy evaluation- Primary Other general counseling and advice for contraceptive management Multiple atypical skin moles Annual physical exam Routine general medical examination at a [facility] care facility Lead exposure Personal history of contact with and (suspected) exposure to lead [facility] Diagnosis Suspected COVID-19 virus infection- Primary Viral syndrome Unspecified viral infection, in conditions classified elsewhere and of unspecified site Strep throat Streptococcal sore throat [facility] Diagnosis Suspected COVID-19 virus infection- Primary Viral syndrome Unspecified viral infection, in conditions classified elsewhere and of unspecified site Strep throat Streptococcal sore throat [facility] Diagnosis Strep throat- Primary Streptococcal sore throat [facility] Diagnosis Acute non-recurrent sinusitis of other sinus- Primary Suspected COVID-19 virus infection Wheezing Acute cough [facility] Diagnosis Viral URI with cough- Primary Paronychia of finger of right hand Abrasion of nose with infection, initial encounter [facility] Diagnosis Pansinusitis, unspecified chronicity- Primary [facility]* Diagnosis Wheezing- Primary LRTI (lower respiratory tract infection) Other diseases of respiratory system, not elsewhere classified [facility]* Diagnosis Bronchitis- Primary Bronchitis, not specified as acute or chronic [facility]* Diagnosis FRANKEL (dyspnea on exertion)- Primary Other dyspnea and respiratory abnormality Otitis media, unspecified laterality, unspecified otitis media type FRANKEL (dyspnea on exertion) Other dyspnea and respiratory abnormality [facility] this encounter [facility] Attachments The following attachments cannot be sent through Care Everywhere. * Safer Sex (Greek) [facility]* Attachments The following attachments cannot be sent through Care Everywhere. * Strep Throat (Greek) * Sore Throat (Greek) [facility] in [facility] encounter[facility]Inst[facility]* Attachments The following attachments cannot be sent through Care Everywhere. * Strep Throat (Greek) * Sore Throat (Greek) [facility] Assessments Diagnosis Routine general medical exam ination at a health care facility - Primary Erectile dysfunction, unspec ified erectile dysfunction type Tachycardia Unspecified tachycardia Diagnosis Routine general medical examination at a health care facility- Primary Tachycardia Unspecified tachycardia Erectile dysfunction, unspecified erectile dysfunction type Sleep disorder Unspecified sleep disturbance Diagnosis Cough Shortness of breath Pneumonia of right upper lobe due to infectious organism (HCC) Pneumonia of right middle lobe due to infectious organism (HCC) Diagnosis Cough Diagnosis Pneumonia of right upper lobe due to infectious organism (HCC) Diagnosis Healthcare maintenance History of recent pneumonia Need for Tdap vaccination Need for prophylactic vaccination with combined roeluiboiq-lpeocij-gucetzjcc (DTP) vaccine Erectile dysfunction, unspecified erectile dysfunction type Diagnosis Impetigo- Primary Dermatitis Contact dermatitis and other eczema, due to unspecified cause Diagnosis High risk sexual behavior, unspecified type Reason for Referral Status Reason Specialty Diagnoses / Procedures Referred By Contact Referred To Contact Authorized Sleep Disorders Medicine / Sleep Medicine Diagnoses Sleep disorder Sleep disorder G47.9 Darcy Qureshi MD [address] [facility] [address] [place] [address] Yasmany Kaplan MD [address] [place] [address] Specialty Diagnoses / Procedures Referred By Contac t Referred To Contact Orthopedic Surgery Diagnoses Injury of left little finger, initial encounter Shannon Gabriel PA-C [address] [place] [address] Trevon Cantu MD [address] [place] [address] Referral ID Status Reason Start Date Expiration Date Visits Requested Visits Authorized [id number] Authorized Specialty Services Required/Pat ient's Best Interest 06/02/2023 1 1 Specialty Diagnoses / Procedures Referred By Contac t Referred To Contact Stef Ricci, DO [address] [facility] [address] [place] [address] Referral ID Status Reason Start Date Expiration Date V isits Requested Visits Authorized [id number] Pending Review 1 1 Specialty Diagnoses / Procedures Referred By Contac t Referred To Contact Urology Diagnoses Vasectomy evaluation Stef Ricci, DO [address] [facility] [address] [place] [address] Referral ID Status Reason Start Date Expiration Date V isits Requested Visits Authorized [id number] Authorized 08/29/2022 08/29/2023 1 1 Specialty Diagnoses / Procedures Referred By Contac t Referred To Contact Dermatology Diagnoses Multiple atypical skin moles Stef Ricci, DO [address] [facility] [address] [place] [address] Jb Richards, DO [address] [place] [address] Referral ID Status Reason Start Date Expiration Date V isits Requested Visits Authorized [id number] Authorized 08/29/2022 08/29/2023 1 1 Referral ID Status Reason Start Date Expiration Date V isits Requested Visits Authorized [id number] Authorized 07/30/2022 06/04/2099 1 1 Specialty Diagnoses / Procedures Referred By Contac t Referred To Contact Radiology Diagnoses FRANKEL (dyspnea on exertion) Procedures CT Angiogram Chest Stef Ricci, DO [address] [facility] [address] [place] [address] Referral ID Status Reason Start Date Expiration Date V isits Requested Visits Authorized [id number] Authorized 06/29/2023 06/28/2024 1 1 Specialty Diagnoses / Procedures Referred By Contac t Referred To Contact Cardiology Diagnoses FRANKEL (dyspnea on exertion) Procedures ECG 12 Lead Stef Ricci, DO [address] [facility] [address] [place] [address] Referral ID Status Reason Start Date Expiration Date Visits Re quested Visits Authorized [id number] Closed 06/29/2023 06/28/2024 1 1 History of Present Illness * Darcy Qureshi MD - 11/13/2018 7:54 AM EDT Subjective Patient ID: Fabricio An is a 28 y.o. male. 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 Told he snores loudly, stops breathing Father has sleep apnea Would like to have a sleep study Works [employer] Exercises daily Anticipatory guidance and risk factor reductions were discussed including the following: Routine dental and eye exams Use of sunscreen and avoidance of excessive sun exposure Healthy diet and exercise practices Smoking cessation (if applicable) Moderate alcohol consumption Risk assessment for falls The following portions of the patient's history were reviewed and updated as appropriate: allergies, current medications, past family history, past medical history, past social history, past surgicalhistory and problem list. Review of Systems Constitutional: Negative for diaphoresis, fatigue, fever and unexpected weight change. HENT: Negative for congestion and hearing loss. Eyes: Negative for visual disturbance. Respiratory: Negative for cough and shortness of breath. Cardiovascular: Negative for chest pain and palpitations. Gastrointestinal: Negative for abdominal pain. Endocrine: Negative for polyuria. Genitourinary: Negative for dysuria. Musculoskeletal: Negative for back pain. Skin: Negative for rash. Allergic/Immunologic: Negative for food allergies. Neurological: Negative for headaches. Hematological: Negative for adenopathy. Psychiatric/Behavioral: Negative for dysphoric mood. Objective Physical Exam Constitutional: He is oriented to person, place, and time. He appears well- developed and well-nourished. HENT: Head: Normocephalic and atraumatic. Eyes: Pupils are equal, round, and reactive to light. Neck: Normal range of motion. Neck supple. Cardiovascular: Normal rate, regular rhythm, normal heart sounds and intact distal pulses. Pulmonary/Chest: Effort normal and breath sounds normal. Abdominal: Soft. Bowel sounds are normal. Hernia confirmed negative in the right inguinal area and confirmed negative in the left inguinal area. Genitourinary: Testes normal and penis normal. Circumcised. Musculoskeletal: Normal range of motion. Lymphadenopathy: No inguinal adenopathy noted on the right or left side. Neurological: He is alert and oriented to person, place, and time. Skin: Skin is warm and dry. Multiple benign moles chest,back Psychiatric: He has a normal mood and affect. His behavior is normal. Thought content normal. 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 Erectile dysfunction, unspecified erectile dysfunction type Comments: revatio prn Orders: - sildenafil, antihypertens, (REVATIO) 20 mg tablet; Take 1 (one) tablet (20 mg total) by mouth daily as needed . documented in this encounter* Pattie Rosen PA-C - 06/04/2019 11:58 AM EST PATIENT NAME: Fabricio An [facility] [address] [facility] [id number] : 1990 DATE OF VISIT: 06/04/2019 #: [id number] PROVIDER: Pattie Rosne PA-C Chief Complaint Patient presents with Generalized Body Aches x 8d with fever sob and chest josué with cough SUBJECTIVE 29 y.o. male presents Generalized Body Aches (x 8d with fever sob and chest josué with cough ) Cough This is a new problem. The current episode started 1 to 4 weeks ago (8 days ago). The problem has been unchanged (started with fever and body aches, but only cough remains). The problem occurs constantly. The cough is productive of sputum. Associated symptoms include a sore throat (from coughing), shortness of breath and wheezing. Pertinent negatives include no chest pain, chills, ear congestion,ear pain, fever, headaches, hemoptysis, myalgias, nasal congestion, postnasal drip or rash. Treatments tried: Dayquil/Nyquil. There is no history of asthma, COPD, environmental allergies or pneumonia. MEDICAL ISSUES History reviewed. No pertinent past medical history. Patient Active Problem List Diagnosis Deviated nasal septum SOCIAL HISTORY Social History Socioeconomic History Marital status: Single Spouse name: Not on file Number of children: Not on file Years of education: Not on file Highest education level: Not on file Occupational History Not on file Social Needs Financial resource strain: Not on file Food insecurity Worry: Not on file Inability: Not on file Transportation needs Medical: Not on file Non-medical: Not on file Tobacco Use Smoking status: Former Smoker Smokeless tobacco: Never Used Substance and Sexual Activity Alcohol use: Yes Drug use: Never Sexual activity: Yes Partners: Female Lifestyle Physical activity Days per week: Not on file Minutes per session: Not on file Stress: Not on file Relationships Social connections Talks on phone: Not on file Gets together: Not on file Attends mormonism service: Not on file Active member of club or organization: Not on file Attends meetings of clubs or organizations: Not on file Relationship status: Not on file Other Topics Concern Not on file Social History Narrative Not on file FAMILY HISTORY Family History Problem Relation Age of Onset Hypertension Father Hyperlipidemia Father Diabetes Father Cancer Maternal Grandfather lung REVIEW OF SYSTEMS Review of Systems Constitutional: Negative for chills and fever. HENT: Positive for congestion and sore throat (from coughing). Negative for ear pain and postnasal drip. Respiratory: Positive for cough, chest tightness, shortness of breath and wheezing. Negative for hemoptysis. Cardiovascular: Negative for chest pain. Gastrointestinal: Negative for nausea and vomiting. Musculoskeletal: Negative for myalgias. Skin: Negative for rash. Allergic/Immunologic: Negative for environmental allergies. Neurological: Negative for headaches. MEDICATIONS PRIOR TO VISIT Current Outpatient Medications on File Prior to Visit Medication Sig Dispense Refill atenolol (TENORMIN) 50 MG tablet Take 1 (one) tablet (50 mg total) by mouth daily . (Patient not taking: Reported on 06/04/2019 .) 30 tablet 1 sildenafil, antihypertens, (REVATIO) 20 mg tablet Take 1 (one) tablet (20 mg total) by mouth daily as needed . (Patient not taking: Reported on 06/04/2019 .) 30 tablet 11 No current facility-administered medications on file prior to visit. ALLERGIES/INTOLERANCES No Known Allergies OBJECTIVE BP 104/64 Pulse 91 Temp 98.6 F (37 C) (Tympanic) Resp 16 Ht 5' 9 Wt 73.5 kg (162 lb) SpO2 97% BMI 23.92 kg/m Physical Exam Constitutional: He is oriented to person, place, and time. He appears well- developed and well-nourished. No distress. Pt is in no acute distress. Non-toxic in appearance. HENT: Head: Normocephalic and atraumatic. Right Ear: Tympanic membrane, external ear and ear canal normal. Left Ear: Tympanic membrane, external ear and ear canal normal. Nose: Nose normal. Mouth/Throat: Uvula is midline, oropharynx is clear and moist and mucous membranes are normal. No drooling, tripoding or trismus. Pt handling own secretions without difficulty. Eyes: Conjunctivae are normal. Neck: Normal range of motion. Neck supple. Cardiovascular: Normal rate, regular rhythm and normal heart sounds. Pulmonary/Chest: Effort normal and breath sounds normal. No respiratory distress. He has no decreased breath sounds. He has no wheezes. He has no rhonchi. He has no rales. No conversational dyspnea. No accessory muscle use or retractions. Coarse cough on exam Lymphadenopathy: He has no cervical adenopathy. Neurological: He is alert and oriented to person, place, and time. Skin: Skin is warm and dry. No rash noted. Psychiatric: He has a normal mood and affect. His behavior is normal. Nursing note and vitals reviewed. PROCEDURE Procedures Results No results found for this or any previous visit (from the past 168 hour(s)). ASSESSMENT/PLAN (expressed as patient instructions): 1. Pneumonia of right upper lobe due to infectious organism (HCC) doxycycline hyclate (VIBRAMYCIN) 100 MG capsule 2. Cough XR Chest AP/PA and LAT pyrilamine-dextromethorphan ([place] DM) 7.5-7.5 mg/5 mL Liqd edkrgbxyvedjbaz-ZE-vromIQJsfts 60-15-400 mg Tab 3. Shortness of breath ipratropium-albuterol (DUO-NEB) 0.5-2.5 mg/3 ml nebulizer solution 3 mL 4. Pneumonia of right middle lobe due to infectious organism (HCC) doxycycline hyclate (VIBRAMYCIN)100 MG capsule No follow-ups on file. ADDITIONAL CLINICAL COMMENTS Radiology images and preliminary report were reviewed. Bronchopneumonia most focal in the right upper lobe but also thought to be present in the right middle lobe as. Pt reports no change in sx after neb treatment. Pt is in no acute distress. Non-toxic in appearance. VSS. Pt has established PCP. I feel patient isappropriate for outpatient treatment with doxy. Pt to follow up with PCP in 2-3 days and go to ED for new or worsening symptoms. ORDERS PLACED THIS VISIT Orders Placed This Encounter Procedures XR Chest AP/PA and LAT MEDICATION LIST AT END OF VISIT Current Outpatient Medications Medication Sig Dispense Refill atenolol (TENORMIN) 50 MG tablet Take 1 (one) tablet (50 mg total) by mouth daily . (Patient not taking: Reported on 06/04/2019 .) 30 tablet 1 doxycycline hyclate (VIBRAMYCIN) 100 MG capsule Take 1 (one) capsule (100 mg total) by mouth 2 (two) times a day for 7 days . 14 capsule 0 ddjnpzwyobtgsqr-MM-bmlbCGGhwan 60-15-400 mg Tab Take 1 (one) tablet by mouth every 6 (six) hours asneeded (cough and congestion.) . 20 tablet 0 pyrilamine-dextromethorphan ([place] DM) 7.5-7.5 mg/5 mL Liqd Take 10-20 mL po qhs for cough . 473 mL 0 sildenafil, antihypertens, (REVATIO) 20 mg tablet Take 1 (one) tablet (20 mg total) by mouth daily as needed . (Patient not taking: Reported on 06/04/2019 .) 30 tablet 11 No current facility-administered medications for this visit. documented in this encounter* Balwinder Espino MD - 06/07/2019 2:57 PM EST [facility] [address] [facility] [address] [facility] [id number] Subjective Fabricio An is a 29 y.o. male seen in the office today for Follow-up (Dx'd c R upper lobe pneumonia on 06/04. Still has a productive cough, LIRIANO a sore throat. ) . HPI: Pt. Seen in urgent care 06/04 for cough, fever, shortness of breath headache. Found to have RUL PNAwas given doxycyline and told to f/u with PCP. Overall still feels like he is having a tough time catching breath. Overall feeling a lot better feeling alert. Still feels like he has 35% of lung capacity or less. Never had PNA prior. No longer having fever, which were present prior to the onset of this. Still having pretty productive cough thatwakes him up at night. No blood in the sputum. Sometimes will get chest pain in the center of his chest when he takes a deep breath. Overall feels much more energized/alert, but just doesn't feel hisbest. No recent foreign travel. Was previously in [place] camping the fall specifically March/April. Histories: No past medical history on file. Past Surgical History: Procedure Laterality Date left little toe amputation Left lisfranc fracture foot Right Family History Problem Relation Age of Onset Hypertension Father Hyperlipidemia Father Diabetes Father Cancer Maternal Grandfather lung Social History Tobacco Use Smoking status: Former Smoker Smokeless tobacco: Never Used Substance Use Topics Alcohol use: Yes Drug use: Never Outpatient Medications as of 06/07/2019 Medication Sig atenolol (TENORMIN) 50 MG tablet Take 1 (one) tablet (50 mg total) by mouth daily . doxycycline hyclate (VIBRAMYCIN) 100 MG capsule Take 1 (one) capsule (100 mg total) by mouth 2 (two) times a day for 7 days . huiilpasyocmium-FI-rlcjHWApqhv 60-15-400 mg Tab Take 1 (one) tablet by mouth every 6 (six) hours asneeded (cough and congestion.) . sildenafil, antihypertens, (REVATIO) 20 mg tablet Take 1 (one) tablet (20 mg total) by mouth daily as needed . pyrilamine-dextromethorphan ([place]avenna DM) 7.5-7.5 mg/5 mL Liqd Take 10-20 mL po qhs for cough . (Patient not taking: Reported on 06/07/2019 .) No Known Allergies Review of Systems Constitution: Positive for malaise/fatigue and night sweats. Negative for chills and fever. Respiratory: Positive for cough, shortness of breath and sputum production. Negative for hemoptysis. Overview of Problems Addressed: No problems updated. Objective Physical Exam Constitutional: He is oriented to person, place, and time. He appears well- developed and well-nourished. HENT: Head: Normocephalic and atraumatic. Cardiovascular: Normal rate and regular rhythm. Exam reveals no gallop and no friction rub. No murmur heard. Pulmonary/Chest: Effort normal and breath sounds normal. Abdominal: Soft. Bowel sounds are normal. Musculoskeletal: Normal range of motion. General: No edema. Neurological: He is alert and oriented to person, place, and time. Skin: Skin is warm and dry. Psychiatric: He has a normal mood and affect. His behavior is normal. Vitals: Vitals: 06/07/19 1449 BP: 121/66 BP Location: Left arm Patient Position: Sitting BP Cuff Size: Adult Pulse: 65 Resp: 14 Temp: 98.4 F (36.9 C) TempSrc: Oral SpO2: 96% Weight: 74.8 kg (165 lb) Height: 5' 9 Assessment & Plan: 1. Pneumonia of right upper lobe due to infectious organism (HCC) Pt. With RUL PNA, which is abnormal location. Has been in areas where opportunistic infectious are present including histo. Will check urinary antigens. Given no current fever and feeling improved will not broaden abx therapy at this time. No need for additional imaging at this time. To let me knowif not improving. - Histoplasma Antigen, Urine - S. pneumoniae Urine Antigen; Future - Legionella Antigen, Urine; Future - S. pneumoniae Urine Antigen - Legionella Antigen, Urine Follow Up Ordered: No follow-ups on file. Balwinder Espino MD documented in this encounter* Balwinder Espino MD - 07/19/2019 8:19 AM EST [facility] [address] [facility] [address] [facility] [id number] Subjective Fabricio An is a 29 y.o. male seen in the office today for Annual Exam . HPI: Fabricio is here for a physical exam. Pt. Going to [email or web address] in August, and possible [employer] in September. Asking if he will be at increased risk for Coronavirus due to having recent pneumonia. Does have a visit with ortho for foot problems. 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 Working with Ortho to help reduce problems associated with feet. Otherwise no other concerns. Takes Atenolol about every 6 months due to anxiety with work. Also takes Sildenafil PRN for ED. Hastried Tadalalifil in the past and would like to switch if possible. 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 Exercises regularly by jogging an lifting weights. Will use protein powder and creatine and multivitamin to help with endurance/strength training. Histories: No past medical history on file. Past Surgical History: Procedure Laterality Date left little toe amputation Left lisfranc fracture foot Right Family History Problem Relation Age of Onset Hypertension Father Hyperlipidemia Father Diabetes Father Cancer Maternal Grandfather lung Social History Tobacco Use Smoking status: Former Smoker Smokeless tobacco: Never Used Substance Use Topics Alcohol use: Yes Drug use: Never Outpatient Medications as of 07/19/2019 Medication Sig atenolol (TENORMIN) 50 MG tablet Take 1 (one) tablet (50 mg total) by mouth daily . sildenafil, antihypertens, (REVATIO) 20 mg tablet Take 1 (one) tablet (20 mg total) by mouth daily as needed . zlbyfswanfwdded-DY-ndqsGCLxrst 60-15-400 mg Tab Take 1 (one) tablet by mouth every 6 (six) hours asneeded (cough and congestion.) . (Patient not taking: Reported on 07/19/2019 .) pyrilamine-dextromethorphan ([place] DM) 7.5-7.5 mg/5 mL Liqd Take 10-20 mL po qhs for cough . (Patient not taking: Reported on 06/07/2019 .) No Known Allergies Review of Systems Constitution: Negative for chills, fever, night sweats and weight loss. HENT: Negative for congestion and sore throat. Eyes: Negative for blurred vision, double vision and photophobia. Cardiovascular: Negative for chest pain, irregular heartbeat, palpitations and syncope. Respiratory: Negative for cough and shortness of breath. Endocrine: Negative for cold intolerance, heat intolerance, polyphagia and polyuria. Hematologic/Lymphatic: Negative for bleeding problem. Does not bruise/bleed easily. Musculoskeletal: Negative for arthritis, joint swelling and myalgias. Gastrointestinal: Negative for abdominal pain, constipation, diarrhea, nausea and vomiting. Neurological: Negative for dizziness, headaches, numbness and weakness. Psychiatric/Behavioral: Negative for altered mental status, hallucinations and suicidal ideas. Overview of Problems Addressed: No problems updated. Objective Physical Exam Constitutional: He is oriented to person, place, and time. He appears well- developed and well-nourished. HENT: Head: Normocephalic and atraumatic. Right Ear: External ear normal. Left Ear: External ear normal. Neck: Normal range of motion. Neck supple. Cardiovascular: Normal rate, regular rhythm, normal heart sounds and intact distal pulses. Pulmonary/Chest: Effort normal and breath sounds normal. Abdominal: Soft. Bowel sounds are normal. Musculoskeletal: Normal range of motion. General: No deformity. Neurological: He is alert and oriented to person, place, and time. Skin: Skin is warm and dry. Psychiatric: He has a normal mood and affect. His behavior is normal. Vitals: Vitals: 07/19/19 0813 BP: 117/78 BP Location: Left arm Patient Position: Sitting BP Cuff Size: X-large Adult Pulse: 75 Resp: 14 Temp: 98.2 F (36.8 C) TempSrc: Tympanic SpO2: 98% Weight: 75.8 kg (167 lb 3.2 oz) Height: 5' 9 Assessment & Plan: 1. Healthcare maintenance - Comprehensive Metabolic Panel - TSH - Lipid Panel - UTD on immunizations. Age appropriate CA screening. 2. History of recent pneumonia Pt. With recent pneumonia, would like to evaluate immune function - CBC and Differential 3. Need for Tdap vaccination - Tdap vaccine greater than or equal to 7yo IM - diptheria, tetanus toxoid, acellular pertusssis (ADACEL) 2 Lf-(2.5-5-3-5 mcg)- 5Lf/0.5 mL injection; Sign this order in conjunction with the immunization order to satisfy [place] Board of Pharmacy Positive ID requirements for immunization orders . Dispense: 1 mL; Refill: 0 4. Erectile dysfunction, unspecified erectile dysfunction type Previously tried Viagra, would like to switch to Cialis as he felt like he had better results with this. - tadalafil (CIALIS) 20 MG tablet; Take 1 (one) tablet (20 mg total) by mouth daily as needed for erectile dysfunction Take prior to sexual activity . Dispense: 10 tablet; Refill: 1 Follow Up Ordered: No follow-ups on file. Balwinder Espino MD documented in this encounter* Mechelle Claros PA-C - 01/25/2020 4:05 PM EDT Patient Name: [facility] Location: Fabricio An [address] [place] [id number] Date Of : Date Of Visit: 1990 01/25/2020 MRN# Provider: [id number] Mechelle Claros PA-C Chief Complaint Patient presents with skin infection infection spots on forehead and neck believes it came from his dog x 3 days getting worse Rash arms, chest, neck x 3 days Assessment & Plan 1. Impetigo mupirocin (BACTROBAN) 2 % ointment 2. Dermatitis predniSONE (DELTASONE) 20 MG tablet No follow-ups on file. Medical Decision Making Two different rashes. Will treat for both allergic response dermatitis and bacterial skin infection Additional Clinical Comments Discussed over the counter medications for symptomatic management and side effects of medications. Recommended taking all medications with food and to stop medications if they develop any signs of anallergic reaction. Educated patient and/or guardian about signs and symptoms that would warrant further immediate evaluation. Recommended that they should return to urgent care, make an appointment with their family physician, or go to the emergency room if symptoms persist or get acutely worse. Recommended follow upwithin the next week with their PCP or to get established with a PCP soon in order to follow up appropriately. [facility] COVID-19 Mask Status: Does the patient have classic COVID-19 symptoms? No, the patient does not have COVID-19 symptoms, the patient WAS wearing a mask during the visit and I (the provider) WAS wearing a mask during the visit. Subjective 30 y.o. male presents with skin infection (infection spots on forehead and neck believes it came from his dog x 3 days getting worse) and Rash (arms, chest, neck x 3 days) 2 different rashes Rash This is a new problem. The current episode started in the past 7 days. The problem is unchanged. The affected locations include the head, torso, left arm, right hand and neck. The rash is characterized by itchiness, redness and draining. Associated with: dog had bacterial infection and possibly yard work. Pertinent negatives include no anorexia, congestion, cough, diarrhea, eye pain, facial edema, fatigue, fever, joint pain, nail changes, rhinorrhea, shortness of breath, sore throat or vomiting. Past treatments include nothing. The treatment provided no relief. Review Of Systems Review of Systems Constitutional: Negative for fatigue and fever. HENT: Negative for congestion, rhinorrhea and sore throat. Eyes: Negative for pain. Respiratory: Negative for cough and shortness of breath. Gastrointestinal: Negative for anorexia, diarrhea and vomiting. Musculoskeletal: Negative for joint pain. Skin: Positive for rash. Negative for nail changes. Medical History No past medical history on file. Past Surgical History: Procedure Laterality Date left little toe amputation Left lisfranc fracture foot Right Patient Active Problem List Diagnosis Deviated nasal septum Social History Social History Tobacco Use Smoking status: Former Smoker Smokeless tobacco: Never Used Substance Use Topics Alcohol use: Not Currently Frequency: 2-4 times a month Drug use: Yes Types: Marijuana Family History Family History Problem Relation Age of Onset Hypertension Father Hyperlipidemia Father Diabetes Father Cancer Maternal Grandfather lung Diabetes Maternal Grandfather Diabetes Paternal Grandmother Objective Physical Exam BP 113/68 Pulse 80 Temp 97.8 F (36.6 C) (Tympanic) Resp 16 Ht 5' 9 Wt 75.3 kg (166 lb) SpO2 96% BMI 24.51 kg/m Vision/Hearing Exam:No exam data present Physical Exam Constitutional: Appearance: He is well-developed. HENT: Head: Normocephalic and atraumatic. Cardiovascular: Rate and Rhythm: Normal rate. Pulmonary: Effort: Pulmonary effort is normal. Skin: General: Skin is warm and dry. Neurological: Mental Status: He is alert and oriented to person, place, and time. Procedure Notes Procedures Results No results found for this or any previous visit (from the past 168 hour(s)). No orders to display Orders Placed This Visit No orders of the defined types were placed in this encounter. Medication List At End Of Visit Current Outpatient Medications Medication Sig Dispense Refill atenolol (TENORMIN) 50 MG tablet Take 1 (one) tablet (50 mg total) by mouth daily . 30 tablet 1 mupirocin (BACTROBAN) 2 % ointment Apply topically 3 (three) times a day for 10 days . 30 g 0 predniSONE (DELTASONE) 20 MG tablet Take 3 (three) tablets (60 mg total) by mouth daily Take 3 pills for 3 days, take 2 pills for 3 days, take 1 pill for 3 days . 18 tablet 0 wihjfmmrixrskxw-JF-xtwjPJAuati 60-15-400 mg Tab Take 1 (one) tablet by mouth every 6 (six) hours asneeded (cough and congestion.) . (Patient not taking: Reported on 07/19/2019 .) 20 tablet 0 pyrilamine-dextromethorphan (Ravenna DM) 7.5-7.5 mg/5 mL Liqd Take 10-20 mL po qhs for cough . (Patient not taking: Reported on 06/07/2019 .) 473 mL 0 No current facility-administered medications for this visit. Patient Instructions Take prescribed medication(s) as directed. If no improvement of symptoms in 3-5 days, follow up with PCP. If symptoms worsen or new ones develop, go to the ER immediately for further evaluation. We would love to have your feedback regarding the visit, good or bad! Please watch for survey in your email Impetigo: Care Instructions Your Care Instructions Impetigo (say kq-lfc-NH-go ) is a skin infection caused by bacteria. It causes blisters that breakand become oozing, yellow, crusty sores. Impetigo can be anywhere on the body. Scratching the sores may spread the infection to other parts of the body. You can also spread it to others through close contact or when you share towels, clothing, and other items. Prescription antibiotic ointment or pills can usually cure impetigo. (After a day of antibiotics, the infection should not spread.) Follow-up care is a [place] part of your treatment and safety. Be sure to make and go to all appointments, and call your doctor if you are having problems. It's also a good idea to know your test resultsand keep a list of the medicines you take. How can you care for yourself at home? Apply antibiotic ointment exactly as instructed. If your doctor prescribed antibiotic pills, take them as directed. Do not stop using them just because you feel better. You need to take the full course of antibiotics. Gently wash the sores with soap and water each day. If crusts form, your doctor may advise you to soften or remove the crusts. You can do this by soaking them in warm water and patting them dry. Thiscan help the cream or ointment treat impetigo. After you touch the area, wash your hands with soap and water. Or you can use an alcohol-based handsanitizer. Don't share items such as towels, sheets, and clothing until the infection is gone. Wash anything that may have touched the infected area. Try to avoid scratching the area. When should you call for help? Call your doctor now or seek immediate medical care if: You have symptoms of a worse infection, such as: ? Increased pain, swelling, warmth, or redness. ? Red streaks leading from the area. ? Pus draining from the area. ? A fever. Impetigo gets worse or spreads to other areas. Watch closely for changes in your health, and be sure to contact your doctor if: You do not get better as expected. Where can you learn more? Log into your personal health record on [email or web address] and enter S909 in the Education box to learn more about Impetigo: Care Instructions. Current as of: 2019 Content Version: 12.5 7794-3145 Frontback. Care instructions adapted under license by your healthcare professional. If you have questions about a medical condition or this instruction, always ask your healthcare professional. [employer], [facility] disclaims any warranty or liability for your use of this information. Dermatitis: Care Instructions Your Care Instructions Dermatitis is the general name used for any rash or inflammation of the skin. Different kinds of dermatitis cause different kinds of rashes. Common causes of a rash include new medicines, plants (such as poison oak or poison gladys), heat, and stress. Certain illnesses can also cause a rash. An allergic reaction to something that touches your skin, such as latex, nickel, or poison gladys, is called contact dermatitis. Contact dermatitis may also be caused by something that irritates the skin, such as bleach, a chemical, or soap. These types of rashes cannot be spread from person to person. How long your rash will last depends on what caused it. Rashes may last a few days or months. Follow-up care is a [place] part of your treatment and safety. Be sure to make and go to all appointments, and call your doctor if you are having problems. It's also a good idea to know your test resultsand keep a list of the medicines you take. How can you care for yourself at home? Do not scratch the rash. Cut your nails short, and file them smooth. Or wear gloves if this helps keep you from scratching. Wash the area with water only. Pat dry. Put cold, wet cloths on the rash to reduce itching. Keep cool, and stay out of the sun. Leave the rash open to the air as much as possible. If the rash itches, use hydrocortisone cream. Follow the directions on the label. Calamine lotion may help for plant rashes. Take an knsh-hju-uiptzqb antihistamine, such as diphenhydramine (Benadryl) or loratadine (Claritin), to help calm the itching. Read and follow all instructions on the label. If your doctor prescribed a cream, use it as directed. If your doctor prescribed medicine, take it exactly as directed. When should you call for help? Call your doctor now or seek immediate medical care if: You have symptoms of infection, such as: ? Increased pain, swelling, warmth, or redness. ? Red streaks leading from the area. ? Pus draining from the area. ? A fever. You have joint pain along with the rash. Watch closely for changes in your health, and be sure to contact your doctor if: Your rash is changing or getting worse. You are not getting better as expected. Where can you learn more? Log into your personal health record on [email or web address] and enter F270 in the Education box to learn more about Dermatitis: Care Instructions. Current as of: April 04, 2019 Content Version: 12.5 Frontback. Care instructions adapted under license by your healthcare professional. If you have questions about a medical condition or this instruction, always ask your healthcare professional. [employer] disclaims any warranty or liability for your use of this information. documented in this encounter* Balwinder Espino MD - 12/27/2019 2:37 PM EDT [address] [facility] [address] [place] [id number] Subjective Fabricio An is a 29 y.o. male seen in the office today for Groin Swelling (x 3 weeks) and Cyst (on testicles) . HPI: Says that he had sexual contact that put him at risk for STD. This was about 4 weeks ago. Has had some stinging after sex. No discharge. No discoloration/change to penis. No new lesions. Did not use protection during this event. Did have anal intercourse at that time. Has had 1 additional partner since that time. Had a cyst on his testicle he had evaluated by urology about 6-7 years ago. Was told it was benign and to let us know if changing. Says that the cyst hasn't changed but that he does have some pain atthis location. Also has noted a mole or skin tag in a similar area. Unsure of when this developed but noticed recently. Histories: History reviewed. No pertinent past medical history. Past Surgical History: Procedure Laterality Date left little toe amputation Left lisfranc fracture foot Right Family History Problem Relation Age of Onset Hypertension Father Hyperlipidemia Father Diabetes Father Cancer Maternal Grandfather lung Diabetes Maternal Grandfather Diabetes Paternal Grandmother Social History Tobacco Use Smoking status: Former Smoker Smokeless tobacco: Never Used Substance Use Topics Alcohol use: Yes Frequency: 2-4 times a month Drug use: Never Outpatient Medications as of 12/27/2019 Medication Sig atenolol (TENORMIN) 50 MG tablet Take 1 (one) tablet (50 mg total) by mouth daily . eulgeewoljicgvo-LH-lrhmMDLcqfy 60-15-400 mg Tab Take 1 (one) tablet by mouth every 6 (six) hours asneeded (cough and congestion.) . (Patient not taking: Reported on 07/19/2019 .) pyrilamine-dextromethorphan (Ravenna DM) 7.5-7.5 mg/5 mL Liqd Take 10-20 mL po qhs for cough . (Patient not taking: Reported on 06/07/2019 .) No Known Allergies Review of Systems Constitution: Negative for chills and fever. Skin: Positive for suspicious lesions. Negative for rash. Overview of Problems Addressed: No problems updated. Objective Physical Exam Constitutional: He is oriented to person, place, and time. He appears well- developed and well-nourished. HENT: Head: Normocephalic and atraumatic. Cardiovascular: Normal rate and regular rhythm. Exam reveals no gallop and no friction rub. No murmur heard. Pulmonary/Chest: Effort normal and breath sounds normal. Abdominal: Soft. Bowel sounds are normal. Genitourinary: Penis normal. No penile tenderness. Genitourinary Comments: No evidence of swelling/redness/tenderness to testicles. Musculoskeletal: Normal range of motion. General: No edema. Neurological: He is alert and oriented to person, place, and time. Skin: Skin is warm and dry. Psychiatric: He has a normal mood and affect. His behavior is normal. Vitals: Vitals: 12/27/19 1407 BP: 120/74 BP Location: Left arm Patient Position: Sitting BP Cuff Size: Adult Pulse: (!) 52 Temp: 98 F (36.7 C) TempSrc: Tympanic SpO2: 96% Weight: 75.3 kg (166 lb) Height: 5' 9 Assessment & Plan: 1. High risk sexual behavior, unspecified type Pt. With a high risk sexual behavior. Will check full STD panel. Will check UA as pt. Could have symptoms of prostatitis. Recommend safe sexual behaviors with protection. - Urinalysis - HIV 1/2 Screen (4th Generation) - Hepatitis Panel, Acute - RPR - Chlamydia/GC/Trichomonas Amplified RNA - Chlamydia/Gonorrhoeae Amplified RNA - Trichomonas vaginalis Amplified RNA Follow Up Ordered: No follow-ups on file. Balwinder Espino MD documented in this encounter Advance Directives No Advanced Directives Records FoundDocuments on File Type Date Recorded Patient Electronic Warfare Technical Expl anation Advance Directives and Living Will Documents on File Type Date Recorded Patient Electronic Warfare Technical Expl anation Advance Directives and Living Will Instructions * Patient Instructions* Pattie Rosen PA-C - 06/04/2019 12:26 PM EST Push fluids and rest as much as possible. Take Doxycycline as prescribed. All antibiotics can cause diarrhea. Recommend taking OTC probiotic and eating at least one yogurt daily to help prevent this from occurring. Use Ravenna DM at night for cough Use Capmist during the day as needed for cough and congestion. Call your PCP to schedule follow up appointment for 48-72 hours. If at any point to have new or worsening symptoms, go directly to the emergency department. Pneumonia: Care Instructions Your Care Instructions Pneumonia is an infection of the lungs. Most cases are caused by infections from bacteria or viruses. Pneumonia may be mild or very severe. If it is caused by bacteria, you will be treated with antibiotics. It may take a few weeks to a few months to recover fully from pneumonia, depending on how sickyou were and whether your overall health is good. Follow-up care is a [place] part of your treatment and safety. Be sure to make and go to all appointments, and call your doctor if you are having problems. It's also a good idea to know your test resultsand keep a list of the medicines you take. How can you care for yourself at home? Take your antibiotics exactly as directed. Do not stop taking the medicine just because you are feeling better. You need to take the full course of antibiotics. Take your medicines exactly as prescribed. Call your doctor if you think you are having a problem with your medicine. Get plenty of rest and sleep. You may feel weak and tired for a while, but your energy level will improve with time. To prevent dehydration, drink plenty of fluids, enough so that your urine is light yellow or clear like water. Choose water and other caffeine-free clear liquids until you feel better. If you have kidney, heart, or liver disease and have to limit fluids, talk with your doctor before you increase the amount of fluids you drink. Take care of your cough so you can rest. A cough that brings up mucus from your lungs is common with pneumonia. It is one way your body gets rid of the infection. But if coughing keeps you from resting or causes severe fatigue and chest-wall pain, talk to your doctor. He or she may suggest that youtake a medicine to reduce the cough. Use a vaporizer or humidifier to add moisture to your bedroom. Follow the directions for cleaning the machine. Do not smoke or allow others to smoke around you. Smoke will make your cough last longer. If you need help quitting, talk to your doctor about stop-smoking programs and medicines. These can increase your chances of quitting for good. Take an jvop-xpy-bqnhnjq pain medicine, such as acetaminophen (Tylenol), ibuprofen (Advil, Motrin),or naproxen (Aleve). Read and follow all instructions on the label. Do not take two or more pain medicines at the same time unless the doctor told you to. Many pain medicines have acetaminophen, which is Tylenol. Too much acetaminophen (Tylenol) can be harmful. If you were given a spirometer to measure how well your lungs are working, use it as instructed. This can help your doctor tell how your recovery is going. To prevent pneumonia in the future, talk to your doctor about getting a flu vaccine (once a year) and a pneumococcal vaccine (one time only for most people). When should you call for help? Call 911 anytime you think you may need emergency care. For example, call if: You have severe trouble breathing. Call your doctor now or seek immediate medical care if: You cough up dark brown or bloody mucus (sputum). You have new or worse trouble breathing. You are dizzy or lightheaded, or you feel like you may faint. Watch closely for changes in your health, and be sure to contact your doctor if: You have a new or higher fever. You are coughing more deeply or more often. You are not getting better after 2 days (48 hours). You do not get better as expected. Where can you learn more? Log into your personal health record on [email or web address] and enter D336 in the Education box to learn more about Pneumonia: Care Instructions. Current as of: November 11, 2018 Content Version: 12.3 4704-0182 Frontback. Care instructions adapted under license by your healthcare professional. If you have questions about a medical condition or this instruction, always ask your healthcare professional. [employer] disclaims any warranty or liability for your use of this information. documented in this encounter* Patient Instructions* Mechelle Claros PA-C - 01/25/2020 2:50 PM EDT Take prescribed medication(s) as directed. If no improvement of symptoms in 3-5 days, follow up with PCP. If symptoms worsen or new ones develop, go to the ER immediately for further evaluation. We would love to have your feedback regarding the visit, good or bad! Please watch for survey in your email Impetigo: Care Instructions Your Care Instructions Impetigo (say or-mnv-EL-go ) is a skin infection caused by bacteria. It causes blisters that breakand become oozing, yellow, crusty sores. Impetigo can be anywhere on the body. Scratching the sores may spread the infection to other parts of the body. You can also spread it to others through close contact or when you share towels, clothing, and other items. Prescription antibiotic ointment or pills can usually cure impetigo. (After a day of antibiotics, the infection should not spread.) Follow-up care is a [place] part of your treatment and safety. Be sure to make and go to all appointments, and call your doctor if you are having problems. It's also a good idea to know your test resultsand keep a list of the medicines you take. How can you care for yourself at home? Apply antibiotic ointment exactly as instructed. If your doctor prescribed antibiotic pills, take them as directed. Do not stop using them just because you feel better. You need to take the full course of antibiotics. Gently wash the sores with soap and water each day. If crusts form, your doctor may advise you to soften or remove the crusts. You can do this by soaking them in warm water and patting them dry. Thiscan help the cream or ointment treat impetigo. After you touch the area, wash your hands with soap and water. Or you can use an alcohol-based handsanitizer. Don't share items such as towels, sheets, and clothing until the infection is gone. Wash anything that may have touched the infected area. Try to avoid scratching the area. When should you call for help? Call your doctor now or seek immediate medical care if: You have symptoms of a worse infection, such as: ? Increased pain, swelling, warmth, or redness. ? Red streaks leading from the area. ? Pus draining from the area. ? A fever. Impetigo gets worse or spreads to other areas. Watch closely for changes in your health, and be sure to contact your doctor if: You do not get better as expected. Where can you learn more? Log into your personal health record on [email or web address] and enter S909 in the Education box to learn more about Impetigo: Care Instructions. Current as of: 2019 Content Version: 12.5 Frontback. Care instructions adapted under license by your healthcare professional. If you have questions about a medical condition or this instruction, always ask your healthcare professional. [employer] disclaims any warranty or liability for your use of this information. Dermatitis: Care Instructions Your Care Instructions Dermatitis is the general name used for any rash or inflammation of the skin. Different kinds of dermatitis cause different kinds of rashes. Common causes of a rash include new medicines, plants (such as poison oak or poison gladys), heat, and stress. Certain illnesses can also cause a rash. An allergic reaction to something that touches your skin, such as latex, nickel, or poison gladys, is called contact dermatitis. Contact dermatitis may also be caused by something that irritates the skin, such as bleach, a chemical, or soap. These types of rashes cannot be spread from person to person. How long your rash will last depends on what caused it. Rashes may last a few days or months. Follow-up care is a [place] part of your treatment and safety. Be sure to make and go to all appointments, and call your doctor if you are having problems. It's also a good idea to know your test resultsand keep a list of the medicines you take. How can you care for yourself at home? Do not scratch the rash. Cut your nails short, and file them smooth. Or wear gloves if this helps keep you from scratching. Wash the area with water only. Pat dry. Put cold, wet cloths on the rash to reduce itching. Keep cool, and stay out of the sun. Leave the rash open to the air as much as possible. If the rash itches, use hydrocortisone cream. Follow the directions on the label. Calamine lotion may help for plant rashes. Take an pxkt-das-lwulnft antihistamine, such as diphenhydramine (Benadryl) or loratadine (Claritin), to help calm the itching. Read and follow all instructions on the label. If your doctor prescribed a cream, use it as directed. If your doctor prescribed medicine, take it exactly as directed. When should you call for help? Call your doctor now or seek immediate medical care if: You have symptoms of infection, such as: ? Increased pain, swelling, warmth, or redness. ? Red streaks leading from the area. ? Pus draining from the area. ? A fever. You have joint pain along with the rash. Watch closely for changes in your health, and be sure to contact your doctor if: Your rash is changing or getting worse. You are not getting better as expected. Where can you learn more? Log into your personal health record on [email or web address] and enter F270 in the Education box to learn more about Dermatitis: Care Instructions. Current as of: April 04, 2019 Content Version: 12.5 4723-3719 Frontback. Care instructions adapted under license by your healthcare professional. If you have questions about a medical condition or this instruction, always ask your healthcare professional. [employer] disclaims any warranty or liability for your use of this information. documented in this encounter Summary Purpose Family History No Family History Records FoundNo Family History Records FoundNo Family History Records FoundNo Family History Records Found Additional Source Comments Reason for Visit (unrecogniz ed section and content) Reason Comments Generalized Body Aches x 8d with fever s ob and chest josué with cough Reason Comments Follow-up Dx'd c R upper lobe pneumonia on 06/04. Still has a productive cough, LIRIANO a sore throat. Reason Comments Annual Exam Reason Comments skin infection infection spots on f orehead and neck believes it came from his dog x 3 days getting worse Rash arms, chest, neck x 3 days Reason Comments Groin Swelling x 3 weeks Cyst on testicles Reason Comments Annual Exam Sore Throat Throat pain 3 weeks, lower part of throat. Reason Comments Injury Patient states he fe ll on the ice last night. He states he has pain in left 5th finger and lower back. 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 Would also like a referral to urologist for vasectomy. Reason Comments Sore Throat Flu like symptoms x 3 day--vomiting this morning Reason Comments Sore Throat Sore throat x10 days . Not really coughing. Feeling fatigue and out of it. Post nasal drip. Not taking anything for it. had strep three weeks ago. Reason Comments URI Cough, runny nose, h ead pressure when bending over, LIRIANO, fatigue, and ST x 6 days. Pt was diagnosed with strep 2 weeks ago, continues to take antibiotics currently Reason Comments Rash Patient states he liriano s been exposed to hand, foot & mouth by his son. He has redness inside his nose, a spot on the right side of his chin x 2 weeks. Cough, ST, fatigue, body aches, chills x 2 days. Reason Comments Cough Still having cough a nd sob Photophobia Wearing sunglasses d ue to light sensitivity, pounding headache at all times, x2 weeks Reason Comments Cough Pt has had a cough, shortness of breath, wheezing, that started around 05/12. Pt was around someone with RSV and pneumonia. Reason Comments Cough Cough and SOB x 2 mo nths. Has been to UC twice, has taken 3 antibiotics and prednisone. Pt states prednisone helped some, but still SOB. Addendum Note - Darcy Qrueshi MD - 11/13/2018 9:46 AM EDT Miscellaneous Notes (unrecog nized section and content) Addended by: DARCY QURESHI on: 11/13/2018 09:46 AM Modules accepted: Orders documented in this encounter Care Teams (unrecognized sec tion and content) Sugar Mill Worker Relationship Specialty Start Date End Date Stef Ricci, DO [address] [place] [address] PCP - General Internal Medicine 01/08/21 Sugar Mill Worker Relationship Specialty Start Date End Date Stef Ricci, DO [address] [facility] [address] [place] [address] PCP - General Internal Medicine 01/08/21 Sugar Mill Worker Relationship Specialty Start Date End Date Physician, No Pcp PCP - General 02/25/22 Sugar Mill Worker Relationship Specialty Start Date End Date Physician, No Pcp PCP - General 02/25/22 Sugar Mill Worker Relationship Specialty Start Date End Date Stef Ricci, DO [address] [facility] [address] [place] [address] PCP - General Internal Medicine 01/08/21 Sugar Mill Worker Relationship Specialty Start Date End Date Stef Ricci, DO [address] [facility] [address] [place] [address] PCP - General Internal Medicine 01/08/21 Sugar Mill Worker Relationship Specialty Start Date End Date Stef Ricci DO [address] [facility] [address] [place] [address] PCP - General Internal Medicine 01/08/21 Sugar Mill Worker Relationship Specialty Start Date End Date Stef Ricci DO [address] [facility] [address] [place] [address] PCP - General Internal Medicine 01/08/21 Sugar Mill Worker Relationship Specialty Start Date End Date Stef Ricci DO [address] [facility] [address] [place] [address] PCP - General Internal Medicine 01/08/21 Sugar Mill Worker Relationship Specialty Start Date End Date Stef Ricci Matthew DO [address] [facility] [address] [place] [address] PCP - General Internal Medicine 01/08/21 Sugar Mill Worker Relationship Specialty Start Date End Date Stef Ricci Matthew DO [address] [facility] [address] [place] [address] PCP - General Internal Medicine 01/08/21 Sugar Mill Worker Relationship Specialty Start Date End Date Stef Ricci Matthew DO [address] [facility] [address] [place] [address] PCP - General Internal Medicine 01/08/21 Sugar Mill Worker Relationship Specialty Start Date End Date Stef Ricci DO [address] [facility] [address] [place] [address] PCP - General Internal Medicine 01/08/21 Sugar Mill Worker Relationship Specialty Start Date End Date Stef Ricci Matthew DO [address] [facility] [address] [place] [address] PCP - General Internal Medicine 01/08/21 Sugar Mill Worker Relationship Specialty Start Date End Date Stef Ricci Matthew DO [address] [facility] [address] [place] [address] PCP - General Internal Medicine 01/08/21 Sugar Mill Worker Relationship Specialty Start Date End Date Stef Ricci Matthew DO [address] [facility] [address] [place] [address] PCP - General Internal Medicine 01/08/21 Sugar Mill Worker Relationship Specialty Start Date End Date Stef Ricci DO [address] [place] [address] PCP - General Internal Medicine 01/08/21 Sugar Mill Worker Relationship Specialty Start Date End Date Stef Ricci DO [address] [place] [address] PCP - General Internal Medicine 01/08/21 (unrecognized sect ion and content) No Status Records FoundNo Status Records FoundNo Status Records FoundNo Status Records Found INFORMATION SOURCE (unrecogn ized section and content) DATE CREATED AUTHOR AUTHOR'S ORGANIZ ATION 05/21/2023 [facility] DATE CREATED AUTHOR AUTHOR'S ORGANIZ ATION 07/01/2023 [facility] DATE CREATED AUTHOR AUTHOR'S ORGANIZ ATION 07/07/2023 [facility] FOR RECORDS PERTAINING TO PATIENTS WHO ARE OR HAVE BEEN ENROLLED IN A CHEMICAL DEPENDENCY/SUBSTANCEABUSE PROGRAM, SOME INFORMATION MAY BE OMITTED. This clinical summary was aggregated from multiple sources. Caution should be exercised in using it in the provision of clinical care. This summary normalizes information from multiple sources, and as a consequence, information in this document may materially change the coding, format and clinical context of patient data. In addition, data may be omitted in some cases. CLINICAL DECISIONS SHOULD BE BASED ON THE PRIMARY CLINICAL RECORDS. [facility]. provides no warranty or guarantee of the accuracy or completeness of information in this document.
[2023-07-29 15:04] LABS: International Normalized Ratio 1.1; Prothrombin Time (Protime)PT. 13.8 SECONDS (11.7-14.9)
[2023-07-29 15:14] LABS: Anion Gap 4 (5-15); BUN 19 mg/dL (7-18); BUN/Creat Ratio 13.1 RATIO (10-20); Calcium,Total 8.8 mg/dL (8.5-10.1); Chloride 109 mmol/L (98-107); Creatinine, Serum 1.45 mg/dL (0.70-1.30); EST Glomerular Filtration Rate 59 mL/min (>60); Est Glom Filt Rate - Afr Amer 71 mL/min (>60); Estimated Creatinine Clearance 71.11 ml/min; Glucose 125 mg/dL (74-106); Potassium 3.8 mmol/L (3.5-5.1); Sodium Level 140 mmol/L (136-145)
[2023-07-29 15:48] VITALS: BP 147/78; PULSE 78; RESP 16; TEMP 36.6; O2SAT 99
== END 2023-07-29 15:52 | disposition short-term general hospital (02) ==
PROVIDERS: Emergency Provider Emergency Medicine; Visit Provider Emergency Medicine
DX: S06.300A Unspecified focal traumatic brain injury without loss of consciousness, initial encounter (principal); W50.0XXA Accidental hit or strike by another person, initial encounter; Y93.89 Activity, other specified; Y99.0 Civilian activity done for income or pay; Y92.84 Military training ground as the place of occurrence of the external cause; S16.1XXA Strain of muscle, fascia and tendon at neck level, initial encounter
CPT/HCPCS: 70450; 72125; 80048; 85027; 85610; 85730; 96374; 99283; J7030; A4216

== ENCOUNTER 2024-04-21 14:09 | Emergency (ER) | payer OTHER, SELFPAY ==
[2024-04-21 14:10] VITALS: BP 145/84; PULSE 64; RESP 16; TEMP 36.6; O2SAT 100; BMI 25.5
--- NOTE | 2024-04-21 14:24 | ED.RN ---
Dr. Turcios bedside
--- NOTE | 2024-04-21 14:34 | CT_ITS ---
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 Known cavernous malformation in same area. TECHNIQUE: Multiple axial images were obtained of the head without intravenous contrast. A radiation dose optimization technique was used for this scan. 260 images. COMPARISON: None. FINDINGS: BRAIN PARENCHYMA: 1.4 x 2.2 x 1.3 cm hyperdense lesion in the left frontal lobe with surrounding edema, previously 1.2 x 2.3 x 1.2 cm. Lateral portion of the lesion appears slightly denser. CSF SPACES: Cerebral ventricles, cortical sulci, and other extra-axial CSF spaces within normal limits in size for age. No midline shift or other significant mass effect. No acute extra-axial hemorrhage. OTHER: Intact calvarium. Mild left maxillary sinus because of thickening. Unremarkable orbits. CT/Brain/Head without Contrast IMPRESSION: 2.2 cm left frontal lobe hyperdense lesion, compatible with the history of cavernous malformation. Mildly increased density in the left lateral aspect of the lesion, suggesting mild acute rebleeding. Consider follow-up MRI. Electronically Signed: Julieth Arndt MD at 15:20 EST ,
--- NOTE | 2024-04-21 14:35 | EKG12_ITS ---
Test Reason : CONFUSIONS Blood Pressure : */* mmHG Vent. Rate : 57 BPM Atrial Rate : 57 BPM P-R Int : 154 ms QRS Dur : 110 ms QT Int : 414 ms P-R-T Axes : 16 69 37 degrees QTcB Int : 402 ms Sinus bradycardia Otherwise normal ECG Confirmed by JILLIAN ERICKSON, ANGELITA ([id number]), editor book ALONZO MEANS ([id number]) on 04/22/2024 9:51:23 AM Referred By: Confirmed By: ANGELITA WALSH MD
--- NOTE | 2024-04-21 14:40 | EDS_ITS ---
HPI History of Present Illness Chief Complaint: Confusion Informant: patient Narrative Narrative: Patient is a 34-year-old male with history of TBI and associated spinal cord injury with some residual left-sided cervical radiculopathy and weakness of the left hand as well as frequent headaches/migraines now. [facility]. He is never had any type of brain surgery/intervention. Denies any history of seizures. Is presenting today with an episode of confusion, near syncope and urinary incontinence. Patient states this week he is has been feeling well and has been having headaches. Today he felt he is actually having a migraine. He notes that since his brain injury he has migraines 2-3 times a week. He notes that he is just been feeling a little under the weather and feels like he is has a cold. Today he felt nauseous had associated photophobia and then felt confused. His vision was dimming and he felt he was going to pass out and he had ringing in his ears. He went to lay down. He states he felt like the room was shaking but he himself was not shaking. He then felt like his muscles locked up and he could not move. He does note he was breathing shallow at the time. He laid down in a dark room and started to feel little better. He is brought in for further evaluation. He also feels that he has some numbness to the right side of his face and that the right side of his face is not moving as fluidly as the other side of his face. He has had serial CTs from neurosurgery and as of February he still had a lesion and they question if he had a cavernous vessel malformation which they will continue to monitor. Patient Nuys any other complaints or concerns at this time. [facility] Medical History Brain bleed Cervical spinal cord injury without spinal bone injury Home Medications ?Medication ?Instructions ?Recorded ?Last Taken ?Type metaxalone 800 mg tablet 800 mg PO TID 7 days #21 tabs 07/29/23 Unknown Rx buspirone 7.5 mg tablet 7.5 mg PO BID 04/21/24 Unknown History cyclobenzaprine 10 mg tablet 10 mg PO BID PRN PRN muscle spasms 04/21/24 Unknown History duloxetine 60 mg capsule,delayed 60 mg PO DAILY 04/21/24 Unknown History release fluoxetine 20 mg capsule 20 mg PO DAILY 04/21/24 Unknown History oxycodone 5 mg tablet 5 mg PO Q6H PRN PRN pain 04/21/24 Unknown History Allergy/AdvReac Type Severity Reaction Status Date / Time No Known Allergies Allergy Verified 04/21/24 14:10 Social History Smoking Status: Never smoker ROS ROS ED Constitutional Constitutional ED: Reports chills; Denies fever(s) Eyes Eyes: Reports other Details: Photophobia ; Denies blurry vision or change in vision ENT ENT ED: Reports sore throat and other Details: Coarse throat, phonophobia ; Denies ear pain Cardiovascular Cardiovascular: Denies chest pain Respiratory/Chest Respiratory/Chest: Denies cough Gastrointestinal Gastrointestinal: Reports nausea; Denies abdominal pain or vomiting Musculoskeletal Musculoskeletal: Reports neck pain Integumentary Denies rash Neurologic Neurologic: Reports headache(s), paresthesias LUE, weakness and other Details: Chronic left-sided cervical radiculopathy from prior injury Psychiatric Psychiatric: Denies anxiety or depression EXAM Physical Exam Const Vital Signs: 04/21/24 14:10 Temperature 97.8 F Temperature Source Oral Pulse Rate 64 Respiratory Rate 16 Blood Pressure 145/84 H Blood Pressure Mean 104 Pulse Ox 100 Oxygen Delivery Method Room Air Positive well nourished and well developed Constitutional Narrative: Patient sitting in the bed with sunglasses on General Appearance ED: well developed and NAD HEENT Reports TM's clear and moist mucous membranes HEENT Narrative: When his left jain is tapped he has some slight twitching of the eyebrow. No oral lesions or tongue laceration appreciated Negative for trauma Tympanic Membrane ED: Yes TM's clear Eyes PERRL and EOMs intact bilaterally Neck supple Neck Narrative: Slightly hoarse voice, no meningeal signs Chest Wall inspection of chest normal and palpation of chest normal Resp normal respiratory effort and clear to auscultation bilaterally Cardio regular rate and regular rhythm GI normal to inspection, nondistended, normoactive bowel sounds and non-tender Extremity normal to inspection General Extremety ED: Negative for edema General Extremity: Negative for edema Neuro oriented x3 and CN's II-XII intact bilaterally Neuro Narrative: No drift of the extremities. 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 Sensorium / Orientation: alert Motor Exam: Negative for general weakness or strength abnormal Psych mental status grossly normal Skin no rashes or lesions noted and no wounds MDM MDM MDM Narrative Medical decision making narrative: Patient's evaluated for an episode of what sound like near syncope and at that time he did have some urinary incontinence but denies any loss of conscious. He does have a history of traumatic brain injury. Differential includes near syncope, carpopedal spasm, electrolyte abnormality, seizure activity, intracranial hemorrhage, complex migraine and arrhythmia. Will attain CT of the brain, EKG and check basic labs. Will give IV fluids and Reglan. If CT negative will then give Toradol. On repeat evaluation patient is resting comfortably. States his symptoms have improved/resolved. No further complaints at this time. CT of the brain does show a hyperdense lesion compatible with a cavernous malformation but concern for possible acute rebleeding. Case is discussed with neurosurgery at [facility] who patient follows with. Initially spoke with the transfer line who states that patient be transferred ER to ER with accepting physician of Dr. Tejada. I then later spoke with Dr. Rain who was able to by the review the films once they came through. He feels that the images are completely unchanged from December of this year and there is not an acute rebleed. From a neurosurgical standpoint he does not think the patient requires a transfer to [facility]. He also states that if patient were to have a seizure with this finding more than likely it would have been partial seizure with right upp er extremity symptoms. He recommends patient continue to follow-up with his neurology through the OR where he is established. Patient is comfortable being discharged home. Counseled that the exact cause of this episode apartment to the ER is not clear and is possibly could have had a seizure versus atypical migraine versus episode of hyperventilation/carpopedal spasm on top of his migraine. Counseled to not drive until cleared by neurology. Given return precautions. Discharged home in stable and improved condition. Lab Data Attestation: I reviewed the patient's lab results. Labs: Laboratory Results - last 24 hr 04/21/24 14:46 WBC 5.8 RBC 4.86 Hgb 14.2 Hct 43.3 MCV 89.1 MCH 29.2 MCHC 32.8 RDW Std Deviation 40.4 RDW Coeff of Twyla 12.3 Plt Count 153 MPV 9.2 Immature Gran % (Auto) 0.200 Neut % (Auto) 62.2 Lymph % (Auto) 29.5 Stone % (Auto) 4.5 Eos % (Auto) 3.3 Baso % (Auto) 0.3 Absolute Neuts (auto) 3.6 Absolute Lymphs (auto) 1.71 Nucleated RBC % 0 Sodium 138 Potassium 3.8 Chloride 102 Carbon Dioxide 32.0 Anion Gap 4 L BUN 16 Creatinine 1.32 H Estim Creat Clear Calc 77.37 Est GFR (MDRD) Af Amer 79 Est GFR (MDRD) Non-Af 65 BUN/Creatinine Ratio 12.1 Glucose 121 H Calcium 8.9 Total Creatine Kinase 126 Radiography Diagnostic Testing: Clinical Impression(s) from Imaging Studies Brain CT 04/21/24 14:34 IMPRESSION: 2.2 cm left frontal lobe hyperdense lesion, compatible with the history of cavernous malformation. Mildly increased density in the left lateral aspect of the lesion, suggesting mild acute rebleeding. Consider follow-up MRI. Electronically Signed: Julieth Arndt MD at 15:20 EST , Rhythm Strip Rhythm Strip: Sinus Rhythm Rate: 57 Ectopy: None EKG Initial EKG: Attestation: I personally reviewed and interpreted this EKG as follows: Interpretation: Sinus Bradycardia Comments: Sinus bradycardia rate 57 bpm Normal axis Normal intervals Normal ST segment Management Discussion w/another healthcare provider: Research Intern Discharge Plan Triage Chief Complaint: Confusion ED Provider: Kenyatta Turcios Dx/Rx/DC Orders Clinical Impression: Episode of transient neurologic symptoms, Abnormal brain CT, Migraine Instructions: ED ALOC, ED, Migraine (Classical) Prescriptions: No Action metaxalone 800 mg tablet 800 mg PO TID 7 Days Qty: 21 0RF cyclobenzaprine 10 mg tablet 10 mg PO BID PRN PRN (Reason: muscle spasms) buspirone 7.5 mg tablet 7.5 mg PO BID fluoxetine 20 mg capsule 20 mg PO DAILY oxycodone 5 mg tablet 5 mg PO Q6H PRN PRN (Reason: pain) duloxetine 60 mg capsule,delayed release(DR/EC) 60 mg PO DAILY Primary Care Provider: [facility] Doctor,Out of Referrals: [facility] Doctor,Out of [Primary Care Provider] - Activity Restrictions/Additional Instructions: Please follow-up with your specialist at the OR. Exact cause of your symptoms is not clear. It is possible you could have had an atypical seizure, an episode of near syncope or possibly episode of what is called carpopedal spasm. The CT of your brain did not show any acute changes per neurosurgery at [facility] when compared to your imaging in December. Please do not drive until you are cleared with your neurologist at the OR. If you have further episodes please go to the nearest ER as you might require admission to the hospital at that point. Print Language: Bulgarian Disposition Disposition: Home, Self Care
[2024-04-21] MEDS: 0.9% Normal Saline (1000mL) 1,000 ML 1000 ML IV (14:46)
[2024-04-21] MEDS: Metoclopramide 10 MG/2 ML Vial IV (14:46)
[2024-04-21 14:54] LABS: Absolute Lymphocyte Count 1.71 X10^3/uL (0.83-4.51); Absolute Neutrophil Count 3.6 X10^3/uL (2.0-7.7); Basophil# 0.02 X10^3/uL; Basophil% 0.3 % (0-1); Eosinophil# 0.19 X10^3/uL; Eosinophils% 3.3 % (0-5); Hematocrit 43.3 % (40-54); Hemoglobin 14.2 g/dL (13.0-16.5); Lymphocyte # 1.71 X10^3/ul (0.83-4.51); Lymphocyte % 29.5 % (19-41); Mean Corp Hgb Conc 32.8 g/dL (32-36); Mean Corpuscular Hgb 29.2 pg (27.0-32.0); Mean Corpuscular Volume 89.1 fL (80-94); Mean Platelet Vol. 9.2 fl (6.2-12.0); Monocyte# 0.26 X10^3/uL; Monocyte% 4.5 % (0-10); NRBC Flagged by Analyzer 0 % (0-5); Neutrophil # 3.61 X10^3/uL (2.7-7.7); Neutrophil % 62.2 % (47-70); Platelet Count 153 K/mm3 (150-450); RBC Distribution Width CV 12.3 % (11.6-14.6); RBC Distribution Width SD 40.4 fl (35.1-43.9); Red Blood Count 4.86 M/mm3 (4.6-6.2); White Blood Count 5.8 K/mm3 (4.4-11.0)
[2024-04-21 15:11] LABS: Anion Gap 4 (5-15); BUN 16 mg/dL (7-18); BUN/Creat Ratio 12.1 RATIO (10-20); CPK Total, Creatine Kinase 126 U/L (39-308); Calcium,Total 8.9 mg/dL (8.5-10.1); Chloride 102 mmol/L (98-107); Creatinine, Serum 1.32 mg/dL (0.70-1.30); EST Glomerular Filtration Rate 65 mL/min (>60); Est Glom Filt Rate - Afr Amer 79 mL/min (>60); Estimated Creatinine Clearance 77.37 ml/min; Glucose 121 mg/dL (74-106); Potassium 3.8 mmol/L (3.5-5.1); Sodium Level 138 mmol/L (136-145)
[2024-04-21 16:10] VITALS: PULSE 68; RESP 16; O2SAT 100
[2024-04-21 16:25] VITALS: BP 145/84; PULSE 68; RESP 16; TEMP 36.6; O2SAT 100
== END 2024-04-21 16:40 | disposition home or self-care (01) ==
PROVIDERS: Emergency Provider Emergency Medicine; Visit Provider Emergency Medicine
DX: R41.0 Disorientation, unspecified (principal); G43.909 Migraine, unspecified, not intractable, without status migrainosus; R94.02 Abnormal brain scan; R29.818 Other symptoms and signs involving the nervous system
CPT/HCPCS: 70450; 80048; 82550; 85025; 93005; 96361; 96374; 99284; J7030; A4216